=== PATIENT | male | born 1950 | race African-American/Black ===

== ENCOUNTER 2024-11-17 08:19 | Inpatient (IN) | payer MEDICARE, MEDICAID ==
[~2024-11-17] VITALS: Ht 188 cm; Wt 109.1 kg
[2024-11-17 08:45] VITALS: PULSE 99; RESP 20; O2SAT 95
--- NOTE | 2024-11-17 09:30 | ED.PDOC ---
GI ASSESSMENT HPI Comments 74 y/o M, presents to the ED for CC of abdominal pain. Patient states, that he has been experiencing diffuse abdominal pain that radiates to his lower back since last night (11/16/24). Patient relays, on experiencing associated symptoms of of nausea, vomiting, and chills. Patient denies dysuria, hematuria, flank pain, penile discharge, or diarrhea. No other symptoms or modifying factors present at this time. Chief Complaint: Abdominal Pain Time Seen by MD: 09:00 Reviewed Notes: Nurses Notes, Medications, Allergies Allergies: Coded Allergies: Penicillins (Verified Allergy, Unknown, 11/17/24) Information Source: Patient Mode of Arrival: Ambulatory Timing: Days Duration: Since onset Prehospital treatment: None Quality: None Vomitus: Watery Stool: Normal Severity: Moderate Recent: None Recent Hx of: None Pain Location: Diffuse Modifying Factors: Nothing Associated sign and symptoms: Nausea, Vomiting Past Medical History PAST MEDICAL HISTORY: Denies Surgical History: Hernia Repair Family History Family History: Unknown Social History Smoker: Non-Smoker Alcohol: Denies ETOH Use Drugs: Denies Drug Use Lives In: Home Constitutional: reports: chills; denies: diaphoresis, fatigue, fever, malaise, sweats, weakness, others EENTM: denies: blurred vision, double vision, ear bleeding, ear discharge, ear drainage, ear pain, ear ringing, eye pain, eye redness, hearing loss, mouth pain, mouth swelling, nasal discharge, nose bleeding, nose congestion, nose pain, photophobia, tearing, throat pain, throat swelling, voice changes, others Respiratory: denies: cough, hemoptysis, orthopnea, SOB at rest, shortness of breath, SOB with excertion, stridor, wheezing, others Cardiovascular: denies: chest pain, dizzy spells, diaphoresis, Dyspnea on exertion, edema, irregular heart beat, left arm pain, lightheadedness, palpitations, PND, syncope, others Gastrointestinal: reports: abdominal pain; denies: abdomen distended, blood streaked bowels, constipated, diarrhea, dysphagia, difficulty swallowing, hematemesis, melena, nausea, poor appetite, poor fluid intake, rectal bleeding, rectal pain, vomiting, others Genitourinary: denies: burning, dysuria, flank pain, frequency, hematuria, incontinence, penile discharge, penile sore, pain, testicle pain, testicle swelling, urgency, others Neurological: denies: dizziness, fainting, headache, left sided numbness, left sided weakness, numbness, paresthesia, pre-existing deficit, right sided numbness, right sided weakness, seizure, speech problems, tingling, tremors, weakness, others Musculoskeletal: reports: back pain; denies: gout, joint pain, joint swelling, muscle pain, muscle stiffness, neck pain, others Integumetry: denies: bruises, change in color, change in hair/nails, dryness, laceration, lesions, lumps, rash, wounds, others Allergic/Immunocompromised: denies: Difficulty Healing, Frequent Infections, Hives, Itching, others Hematologic/Lymphatic: denies: anemia, blood clots, easy bleeding, easy bruising, swollen glands, others Endocrine: denies: excessive hunger, excessive sweating, excessive thirst, excessive urination, flushing, intolerance to cold, intolerance to heat, unexplained weight gain, unexplained weight loss, others Psychiatric: denies: anxiety, bipolar disorder, depression, hopeless, panic disorder, schizophrenia, sleepless, suicidal, others All Other Systems: Reviewed and Negative Physical Exam General Appearance: No Apparent Distress, Normal HEENT: Normal ENT Inspection, Pharynx Normal, TMs Normal Neck: Full Range of Motion, Non-Tender, Normal, Normal Inspection Respiratory: Chest Non-Tender, Lungs Clear, No Accessory Muscle Use, No R espiratory Distress, Normal Breath Sounds Cardiovascular: No Edema, No Murmur, No Gallop, Normal Peripheral Pulses, Regular Rate/Rhythm Breast Exam: Deferred Gastrointestinal: Abnormal Bowel Sounds, Distended, Epigastric, No Organomegaly, Soft, Other (hyperactive bowel sounds, epigastric ttp, no rebound/guarding) Genitalia: Deferred Pelvic: Deferred Rectal: Deferred Extremities: Normal inspection, Other (Ambulate without difficulty.) Musculoskeletal : Apperance: Normal Neurologic: No Motor Deficits, Normal Affect, Normal Mood Cerebellar Function: Normal Reflexes: NOT DONE Skin: Dry, Normal Color, Warm Lymphatic: No Adenopathy Was a procedure done? Was a procedure done?: No GI differential Dx Differential Diagnosis: Bowel Obstruction, Constipation, Diverticular disease, Gastritis/PUD, Gastroenteritis, Electrolyte Imbalance, Food Poisoning, Bacterial, Viral X-Ray, Labs, Meds, VS Vital Signs Date Time Temp Pulse Resp B/P (MAP) Pulse Ox O2 Delivery O2 Flow Rate FiO2 11/17/24 10:12 79 20 148/98 11/17/24 10:10 78 20 148/98 (115) 94 11/17/24 09:42 93 18 179/99 11/17/24 08:45 99 20 95 Room Air* 0 21 11/17/24 08:45 97.6 99 20 156/106 (123) 95 97.6 11/17/24 08:45 98.2 115 16 163/92 (115) 96 Lab Test 11/17/24 10:24 11/17/24 10:02 11/17/24 09:00 11/17/24 08:47 Range/Units Urine Color Light-yellow Yellow Urine Clarity Clear Clear Urine pH 6.5 5.0-9.0 Urine Specific [place] 1.020 1.001-1.035 Urine Protein Negative Negative Urine Ketones Negative Negative Urine Blood Negative Negative /uL Urine Nitrite Negative Negative Urine Bilirubin Negative Negative Urine Urobilinogen 2 H Negative mg/dL Urine Leukocyte Esterase Negative Negative /uL Urine RBC 11 0 - 3 /hpf Urine Microscopic WBC 3 0-3 /HPF Urine Squamous Epithelial Cells Few <5 /hpf Urine Bacteria None seen None Seen /hpf Urine Mucus Few None Seen Urine Glucose Normal Normal mg/dL Troponin I High Sensitivity Pending 23 </=54 ng/L White Blood Count 9.4 4.4-10.8 10^3/uL Red Blood Count 5.84 4.5-5.90 10^6/uL Hemoglobin 16.0 13.5-17.5 g/dL Hematocrit 48.4 41.0-53.0 % Mean Corpuscular Volume 82.8 80.0-100.0 fL Mean Corpuscular Hemoglobin 27.3 L 28.0-32.0 pg Mean Corpuscular Hemoglobin Concent 33.0 32.0-36.0 g/dL Red Cell Distribution Width 14.1 11.8-14.3 % Platelet Count 157 140-450 10^3/uL Mean Platelet Volume 9.5 6.9-10.8 fL Neutrophils (%) (Auto) 85.8 H 37.0-80.0 % Lymphocytes (%) (Auto) 9.9 L 10.0-50.0 % Monocytes (%) (Auto) 3.4 0.0-12.0 % Eosinophils (%) (Auto) 0.3 0.0-7.0 % Basophils (%) (Auto) 0.6 0.0-2.0 % Neutrophils # (Auto) 8.0 1.6-8.6 10 ^3/uL Lymphocytes # (Auto) 0.9 0.4-5.4 10 ^3/uL Monocytes # (Auto) 0.3 0-1.3 10 ^3/uL Eosinophils # (Auto) 0 0-0.8 10 ^3/uL Basophils # (Auto) 0.1 0-0.2 10 ^3/uL Nucleated Red Blood Cells 0.1 % Prothrombin Time 11.3 9.3-11.8 sec Prothrombin Time INR 1.07 0.9-1.15 Activated Partial Thromboplast Time 28.2 24.5-34.5 SEC Sodium Level 142 136-145 mmol/L Potassium Level 3.8 3.5-5.1 mmol/L Chloride Level 108 H 98-107 mmol/L Carbon Dioxide Level 26 20-31 mmol/L Anion Gap 8 5-15 Blood Urea Nitrogen 10 9-23 mg/dL Creatinine 0.96 0.700-1.30 mg/dL Glomerular Filtration Rate Calc 84 >90 mL/min BUN/Creatinine Ratio 10.4 10.0-20.0 Serum Glucose 163 H 74-106 mg/dL Lactic Acid Level 1.5 0.4-2.0 mmol/L Calcium Level 10.2 8.7-10.4 mg/dL Total Bilirubin 0.6 0.2-1.0 mg/dL Aspartate Amino Transferase (AST) 28 13-40 U/L Alanine Aminotransferase (ALT) 23 7-40 U/L Alkaline Phosphatase 62 46-116 U/L Total Protein 8.0 5.7-8.2 g/dL Albumin 5.0 H 3.2-4.8 g/dL Lipase Pending POC Glucose 171 H 70-106 mg/dl Current Medications Medications (Trade) Dose Ordered Sig/Nita Route Start Time Stop Time Status Last Admin Morphine Sulfate 4 mg ONCE ONCE IV 11/17/24 09:45 11/17/24 09:46 DC 11/17/24 09:42 Ondansetron HCl (Zofran) 4 mg ONCE ONCE IV 11/17/24 09:45 11/17/24 09:46 DC 11/17/24 09:[address] [address] Ph: [phone] DIAGNOSTIC IMAGING Diagnostic Imaging Report : [id number] Signed PATIENT: RAQUEL JAMES JRACCT: [id number] UNIT: [id number] : 1950 LOC: ER ROOM / BED: / AGE / SEX: 74 / M ADM STATUS: REG ER SERVICE [id number] ORDERING PHYSICIAN: CHERELLE JIMENEZ MD PROCEDURE(s): ABPL - CT AB PEL WO CON-NO ORAL OR IV REASON: abdomenal pain ORDER NUMBER(s): [id number], ACCESSION NUMBER(s): [id number] Procedure: CT CT AB PEL WO CON-NO ORAL OR IV 11/17/2024 08:58 AM Indication: abdomenal pain Comparison Study: None Technique: Axial images were obtained and reformatted in coronal and sagittal planes. All CT scans at this medical facility are performed using dose modulation techniques as appropriate to a performed exam including the following: Automated exposure control was utilized; adjustment of the MA and/or KV according to patient size; and use of iterative reconstruction technique. CT Dose: CTDI volume is 18.69 mGy. Dose-length product is 1030.2 mGy*cm FINDINGS: Lower Chest: The heart is normal in size. Coronary artery calcification noted. Hepatobiliary: Several hepatic cysts are seen measuring up to 2.2 cm in the right lobe. Few subcentimeter hypodense lesions are seen within the liver that are too small to characterize in this unenhanced study . Liver contour is slightly irregular. No intrahepatic or extrahepatic ductal dilatation. Cholelithiasis and mild gallbladder wall thickening that could be at least in part due to lack of distention. Mild pericholecystic fat stranding noted adjacent to the gallbladder fundus. Spleen: Unremarkable. Pancreas: A 3 cm multilocular cyst noted in the pancreatic body. A 1.3 x 0.6 cm cyst in the pancreatic tail versus focal pancreatic ductal dilatation. Adrenal Glands: Unremarkable. tract: The kidneys are normal in size bilaterally without hydronephrosis or nephrolithiasis. Several small bilateral renal cysts are seen. Mildly thickened and trabecular bladder wall. GI tract: The stomach is grossly normal in appearance. No evidence of small bowel obstruction. A myomatous this material noted in the lumen of small bowel in the lower abdomen likely ingested material. The large bowel is unremarkable. The appendix is normal. Lymphatics: No mesenteric, retroperitoneal or periportal lymphadenopathy. Vasculature: The abdominal aorta is normal in in caliber. Pelvic Organs: Prostate is moderately enlarged. Bones/soft tissues: Mild multilevel degenerative disc disease of the thoracolumbar spine. Mild degenerative grade 1 anterolisthesis of L4 on L5. Mild bilateral hip joint osteoarthritis. Other: None. IMPRESSION: 1. Cholelithiasis with mild gallbladder wall thickening pericholecystic fat stranding adjacent to the fundus may represent acute or chronic cholecystitis. Recommend clinical and biochemical correlation further evaluation by gallbladder ultrasound. 2. Slightly irregular liver contour may indicate cirrhosis. Several hepatic cysts are seen measuring up to 2.2 cm and there are several subcentimeter hypodense hepatic lesions that are incompletely evaluated in this exam. No e vidence of hepatic steatosis. 3. A 3 cm multilocular cyst noted in the pancreatic body. A 1.3 x 0.6 cm cyst in the pancreatic tail versus focal pancreatic ductal dilatation. This should be further evaluated by multiphasic abdominal MRI without and with IV contrast utilizing a dedicated pancreatic protocol on a nonemergent basis. 4. Bilateral renal cysts, incompletely evaluated on this unenhanced study. 5. Mildly thickened and trabecular bladder wall that may represent chronic outlet obstruction or cystitis. Correlate with urinalysis. Prostate is moderately enlarged. ATED BY: EWA ISLAS MD DICTATED DATE/TIME: 11/17/24 1008 SIGNED BY: EWA ISLAS MD SIGNED DATE/TIME: 11/17/24 1008 CC: Time of 1ST Reevaluation: 09:30 Reevaluation 1ST: Unchanged Patient Education/Counseling: Diagnosis, Treatment Family Education/Counseling: No Family Present Departure 1 Departure Time of Disposition: 10:50 Impression: Primary Impression: Cholecystitis Additional Impressions: Non-specific colitis Cystitis Pancreatic cyst Cirrhosis Ascites Abdominal pain Disposition: ADMITTED INPATIENT Admit to: [facility] Condition: Serious Discharged With: Self Critical Care Note Critical Care Time?: No Stability Stability form required: No Heart Score Heart Score: Heart Score Response (Comments) Value History N/A 0 EKG N/A 0 Age N/A 0 Risk Factors N/A 0 Troponin N/A 0 Total 0 I personally scribed for CHERELLE JIMENEZ MD ([email or web address]) on 11/17/24 at 09:30. Electronically submitted by Joan Gruber ([employer]). I personally scribed for CHERELLE JIMENEZ MD ([email or web address]) on 11/17/24 at 09:34. Electronically submitted by Joan Gruber ([email or web address]). I personally scribed for CHERELLE JIMENEZ MD ([email or web address]) on 11/17/24 at 10:27. Electronically submitted by Joan Gruber ([employer]). CHERELLE JIMENEZ MD Nov 17, 2024 09:30
[2024-11-17] MEDS: ONDANSETRON HCL 4 MG/2 ML VIAL IV ONE (09:41)
[2024-11-17 09:42] LABS: Basophils # (auto) 0.1 10 ^3/uL (0-0.2); Basophils % (auto) 0.6 % (0.0-2.0); Eosinophils # (auto) 0 10 ^3/uL (0-0.8); Eosinophils % (auto) 0.3 % (0.0-7.0); Hematocrit 48.4 % (41.0-53.0); Lymphocytes # (auto) 0.9 10 ^3/uL (0.4-5.4); Lymphocytes % (auto) 9.9 % (10.0-50.0); Mean Corpuscular Hemoglobin 27.3 pg (28.0-32.0); Mean Corpuscular Volume 82.8 fL (80.0-100.0); Monocytes # (auto) 0.3 10 ^3/uL (0-1.3); Monocytes % (auto) 3.4 % (0.0-12.0); Neutrophils % (auto) 85.8 % (37.0-80.0); Nucleated Red Blood Cells % 0.1 %; Platelet Count (auto) 157 10^3/uL (140-450); Red Blood Cells 5.84 10^6/uL (4.5-5.90); Red Cell Distribution Width 14.1 % (11.8-14.3); White Blood Cell 9.4 10^3/uL (4.4-10.8)
[2024-11-17] MEDS: MORPHINE SULFATE 4 MG/ML SYR/VIAL IV ONE (09:42)
[2024-11-17 10:07] LABS: INR 1.07 (0.9-1.15); Partial Thromboplastin Time 28.2 SEC (24.5-34.5); Prothrombin Time 11.3 sec (9.3-11.8)
--- NOTE | 2024-11-17 10:10 | DVH ---
Procedure: CT CT AB PEL WO CON-NO ORAL OR IV 11/17/2024 08:58 AM Indication: abdomenal pain Comparison Study: None Technique: Axial images were obtained and reformatted in coronal and sagittal planes. All CT scans at this medical facility are performed using dose modulation techniques as appropriate to a performed e xam including the following: Automated exposure control was utilized; adjustment of the MA and/or KV according to patient size; and use of iterative reconstruction technique. CT Dose: CTDI volume is 18. 69 mGy. Dose-length product is 1030.2 mGy*cm FINDINGS: Lower Chest: The heart is normal in size. Coronary artery calcification noted. Hepatobiliary: Several hepatic cysts are seen measuring up to 2.2 cm in the right lobe. Few subcenti meter hypodense lesions are seen within the liver that are too small to characterize in this unenhanc ed study . Liver contour is slightly irregular. No intrahepatic or extrahepatic ductal dilatation. Ch olelithiasis and mild gallbladder wall thickening that could be at least in part due to lack of diste ntion. Mild pericholecystic fat stranding noted adjacent to the gallbladder fundus. Spleen: Unremarkable. Pancreas: A 3 cm multilocular cyst noted in the pancreatic body. A 1.3 x 0.6 cm cyst in the pancreati c tail versus focal pancreatic ductal dilatation. Adrenal Glands: Unremarkable. tract: The kidneys are normal in size bilaterally without hydronephrosis or nephrolithiasis. Sever al small bilateral renal cysts are seen. Mildly thickened and trabecular bladder wall. GI tract: The stomach is grossly normal in appearance. No evidence of small bowel obstruction. A myom atous this material noted in the lumen of small bowel in the lower abdomen likely ingested material. The large bowel is unremarkable. The appendix is normal. Lymphatics: No mesenteric, retroperitoneal or periportal lymphadenopathy. Vasculature: The abdominal aorta is normal in in caliber. Pelvic Organs: Prostate is moderately enlarged. Bones/soft tissues: Mild multilevel degenerative disc disease of the thoracolumbar spine. Mild degene rative grade 1 anterolisthesis of L4 on L5. Mild bilateral hip joint osteoarthritis. Other: None. IMPRESSION: 1. Cholelithiasis with mild gallbladder wall thickening pericholecystic fat stranding adjacent to the fundus may represent acute or chronic cholecystitis. Recommend clinical and biochemical correlation further evaluation by gallbladder ultrasound. 2. Slightly irregular liver contour may indicate cirrhosis. Several hepatic cysts are seen measuring up to 2.2 cm and there are several subcentimeter hypodense hepatic lesions that are incompletely eval uated in this exam. No evidence of hepatic steatosis. 3. A 3 cm multilocular cyst noted in the pancreatic body. A 1.3 x 0.6 cm cyst in the pancreatic tail versus focal pancreatic ductal dilatation. This should be further evaluated by multiphasic abdominal MRI without and with IV contrast utilizing a dedicated pancreatic protocol on a nonemergent basis. 4. Bilateral renal cysts, incompletely evaluated on this unenhanced study. 5. Mildly thickened and trabecular bladder wall that may represent chronic outlet obstruction or cyst itis. Correlate with urinalysis. Prostate is moderately enlarged.
[2024-11-17 10:19] LABS: Alanine Aminotransferase 23 U/L (7-40); Alkaline Phosphatase 62 U/L (46-116); Anion Gap 8 (5-15); Aspartate Aminotransferase 28 U/L (13-40); BUN/Creatinine Ratio 10.4 (10.0-20.0); Bilirubin, Total 0.6 mg/dL (0.2-1.0); Blood Urea Nitrogen 10 mg/dL (9-23); Calcium 10.2 mg/dL (8.7-10.4); Carbon Dioxide 26 mmol/L (20-31); Potassium 3.8 mmol/L (3.5-5.1); Sodium 142 mmol/L (136-145)
[2024-11-17 10:25] LABS: Urine Bacteria None Seen /hpf (None Seen)
[2024-11-17 10:39] LABS: Urine Blood Negative /uL (Negative); Urine Clarity Clear (Clear); Urine Color Light-Yellow (Yellow); Urine Mucus FEW (None Seen); Urine Protein, UAD Negative (Negative); Urine Squamous Epithelial Cell FEW /hpf (<5); Urine Urobilinogen 2 mg/dL (Negative); Urine WBC 3 /HPF (0-3); Urine pH 6.5 (5.0-9.0)
[2024-11-17 10:41] LABS: Chloride 108 mmol/L (98-107); Glucose 163 mg/dL (74-106)
[2024-11-17 10:52] LABS: Lipase 42 U/L (12-53)
[2024-11-17] MEDS ORDERED: MORPHINE SULFATE INJ 2 MG/ml SYRG IV PRN ×2 (11:15→16:15)
[2024-11-17] MEDS ORDERED: HYDROcodone-ACET 5/325MG TAB PO PRN ×2 (11:15→16:15)
[2024-11-17] MEDS ORDERED: ACETAMINOPHEN 325 MG TAB PO PRN ×2 (11:15→16:15)
[2024-11-17] MEDS ORDERED: DEXTROSE (50%) 50ML SYRG IV PRN (11:30)
[2024-11-17] MEDS ORDERED: ASPI-325 PO (11:37)
[2024-11-17] MEDS ORDERED: ATOR40TA52 PO (11:37)
[2024-11-17] MEDS ORDERED: DORZ2SOL18 EACHEYE (11:37)
[2024-11-17] MEDS ORDERED: BRIM0.2S17 EACHEYE (11:37)
[2024-11-17] MEDS ORDERED: BIMA0.01 EACHEYE (11:37)
[2024-11-17] MEDS ORDERED: APIX5TAB PO (11:37)
[2024-11-17] MEDS ORDERED: DONE1TAB88 PO (11:37)
[2024-11-17] MEDS ORDERED: EMPA1TAB PO (11:37)
--- NOTE | 2024-11-17 12:00 | DVH ---
ULTRASOUND ABDOMEN COMPLETE INDICATION: r/o cholecystitis TECHNIQUE: Multiple real-time sonographic images of the abdomen were obtained. COMPARISON: CT abdomen 11/17/2024 FINDINGS: The visualized liver parenchyma appears fairly homogenous . The liver measures 17 cm. There is a 1 .7 cm right hepatic lobe cyst. There is no suspicious appearing hepatic lesion or intrahepatic bili sunshine ductal dilatation is identified. There are multiple gallstones seen within the gallbladder. There is no significant gallbladder wall t hickening or pericholecystic fluid. The buncher hand reports a negative Galicia's sign. Common duct me asures 8 mm. The right kidney measures 10.4 cm length. The left kidney measures 10.3 cm. No sonographic evide nce of nephrolithiasis or hydronephrosis. The spleen measures 11.4 cm and appears within normal limits. Pancreas is obscured by bowel gas. The visualized portions of the IVC and aorta are grossly unremarkable. IMPRESSION: 1. Cholelithiasis without sonographic features of acute cholecystitis. HS:Y
[2024-11-17] MEDS: ACCU-CHEK COMFORT CURVE STRIP VI SCH (12:08)
[2024-11-17] MEDS: InsuLIN REG 1unit/0.01ml Soln (100units/ml) SC SCH (12:11)
[2024-11-17] MEDS: GADOTERATE MEG 10 MMOL/20ml INJ (0.5MMOL/ml) IV ONE (13:09)
--- NOTE | 2024-11-17 14:56 | DVH ---
CLINICAL HISTORY: Abnormal findings on CT. Pancreatic masses. TECHNIQUE: Multi sequence multi planar MRI images of the abdomen were obtained prior to and after th e uneventful administration of 20 mL [place] scan contrast. COMPARISON: CT dated 11/17/2024 and ultrasound dated 11/17/2024 FINDINGS: Multiple gallstones visualized in the gallbladder distended appearing gallbladder. No bili sunshine ductal dilatation. Common bile duct measures up to 0.6 cm. Multiple cysts are seen in the liver, with the largest measuring up to 2 cm in the posterior right hepatic lobe. The spleen and adrenal gla nds are unremarkable. There is no hydronephrosis in either kidney. Cyst at the mid to inferior pole o f the left kidney measures up to 2.1 cm. Small subcentimeter T2 hyperintense lesion in the inferior p ole of the right kidney, likely a small cyst, but not well characterized due to its small size. Nonen hancing T2 hyperintense structure at the pancreatic body measures up to 3.2 cm in greatest dimension with thin septations. Nonenhancing 0.6 cm T2 hyperintense structure of the pancreatic tail, likely a cyst, although not correlating with the size of the structure seen on CT of the pancreatic tail. No o ther significant abnormality identified in the abdomen. IMPRESSION: 1. 3.2 cm cystic mass in the body of the pancreas and 0.6 cm cystic mass in the tail of the pancreas. Based on size morphology (no mural nodule, wall thickening, normal caliber main pancreatic duct, and no peripheral calcification), imaging surveillance with MRI every 6 months x4 recommended. If stable in size and morphology over the initial 2 years, reimage annually x2 then every other year X3, for a total of 10 years surveillance. If there is interval growth during surveillance EUS/ FNA +surgical c onsultation recommended ACR white paper on incidentally detected pancreatic cysts. 2. Multiple hepatic cysts. 3. Cholelithiasis with distended gallbladder. No biliary ductal dilatation. 4. Additional findings as detailed above.
[2024-11-17] MEDS ORDERED: SODIUM CHLORIDE 0.9% 1,000 ML IV SCH (16:15)
[2024-11-17] MEDS ORDERED: ONDANSETRON HCL 4 MG/2 ML VIAL IV PRN (16:15)
--- NOTE | 2024-11-17 16:17 | DVHHP2 ---
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 Patient states the pain is 10/10 throbbing tight and constant in nature. Patient denies any chest pain, shortness of breath, fever, chills, lightheadedness, weakness, dizziness, recent trauma or injury, recent illnesses, or recent ingestion of spoiled food Cardiovascular: CHF, HTN Endocrine: Diabetes Past Medical History Partial blindness in both eyes Past Surgical History: Hernia Repair, Other (Bilateral eye surgery) Family History: Other (Mom with heart disease) Smoke: <1 pack per day ALCOHOL: none Drugs: None Lives: with Family Domestic Violence: Neg Review of Systems Gastrointestinal: Nausea, Vomiting, Abdominal Pain Musculoskeletal: back pain Allergies: Coded Allergies: Penicillins (Verified Allergy, Unknown, 11/17/24) Medications Current Medications Medications Dose Ordered Sig/Nita Route Start Time Stop Time Status Last Admin Dose Admin Acetaminophen/ Hydrocodone Bitart 1 tab Q4HPRN PRN PO 11/17/24 11:15 Acetaminophen 650 mg Q4HP PRN PO 11/17/24 11:15 Morphine Sulfate 2 mg Q4HPRN PRN IV 11/17/24 11:15 Diagnostic Test (Pha) 1 strip Q6HR 11/17/24 12:00 11/17/24 12:08 1 STRIP Insulin Human Regular Q6HR SC 11/17/24 12:00 11/17/24 12:11 3 UNITS Dextrose 50 ml UD PRN IV 11/17/24 11:30 Exam Vital Signs Vital Signs Date Time Temp Pulse Resp B/P (MAP) Pulse Ox O2 Delivery O2 Flow Rate FiO2 11/17/24 12:14 98.0 85 17 155/88 (110) 92 98.0 11/17/24 08:45 Room Air* 0 21 General Appearance: Alert, Oriented X3, Cooperative, No acute distress HEENT: Atraumatic, PERRLA, EOMI, Mucous membr. moist/pink Respiratory: Clear to auscultation, Normal air movement Cardiovascular: Regular rate, Normal S1, Normal S2, No murmurs Abdominal: Soft Extremities: No cyanosis, Normal pulses Skin: No significant lesion Neuro: Normal gait, Normal speech, Strength at 5/5 X4 ext, Normal tone, Sensation intact Psych/Mental Status: Mental status NL, Mood NL Labs/Xrays Labs Test 11/17/24 12:06 11/17/24 11:43 11/17/24 10:24 11/17/24 09:18 Range/Units POC Glucose 165 H 70-106 mg/dl Troponin I High Sensitivity 21 </=54 ng/L Urine Color Light-yellow Yellow Urine Clarity Clear Clear Urine pH 6.5 5.0-9.0 Urine Specific [place] 1.020 1.001-1.035 Urine Protein Negative Negative Urine Ketones Negative Negative Urine Blood Negative Negative /uL Urine Nitrite Negative Negative Urine Bilirubin Negative Negative Urine Urobilinogen 2 H Negative mg/dL Urine Leukocyte Esterase Negative Negative /uL Urine RBC 11 0 - 3 /hpf Urine Microscopic WBC 3 0-3 /HPF Urine Squamous Epithelial Cells Few <5 /hpf Urine Bacteria None seen None Seen /hpf Urine Mucus Few None Seen Urine Glucose Normal Normal mg/dL Test 11/17/24 09:00 Range/Units White Blood Count 9.4 4.4-10.8 10^3/uL Red Blood Count 5.84 4.5-5.90 10^6/uL Hemoglobin 16.0 13.5-17.5 g/dL Hematocrit 48.4 41.0-53.0 % Mean Corpuscular Volume 82.8 80.0-100.0 fL Mean Corpuscular Hemoglobin 27.3 L 28.0-32.0 pg Mean Corpuscular Hemoglobin Concent 33.0 32.0-36.0 g/dL Red Cell Distribution Width 14.1 11.8-14.3 % Platelet Count 157 140-450 10^3/uL Mean Platelet Volume 9.5 6.9-10.8 fL Neutrophils (%) (Auto) 85.8 H 37.0-80.0 % Lymphocytes (%) (Auto) 9.9 L 10.0-50.0 % Monocytes (%) (Auto) 3.4 0.0-12.0 % Eosinophils (%) (Auto) 0.3 0.0-7.0 % Basophils (%) (Auto) 0.6 0.0-2.0 % Neutrophils # (Auto) 8.0 1.6-8.6 10 ^3/uL Lymphocytes # (Auto) 0.9 0.4-5.4 10 ^3/uL Monocytes # (Auto) 0.3 0-1.3 10 ^3/uL Eosinophils # (Auto) 0 0-0.8 10 ^3/uL Basophils # (Auto) 0.1 0-0.2 10 ^3/uL Nucleated Red Blood Cells 0.1 % Prothrombin Time 11.3 9.3-11.8 sec Prothrombin Time INR 1.07 0.9-1.15 Activated Partial Thromboplast Time 28.2 24.5-34.5 SEC Sodium Level 142 136-145 mmol/L Potassium Level 3.8 3.5-5.1 mmol/L Chloride Level 108 H 98-107 mmol/L Carbon Dioxide Level 26 20-31 mmol/L Anion Gap 8 5-15 Blood Urea Nitrogen 10 9-23 mg/dL Creatinine 0.96 0.700-1.30 mg/dL Glomerular Filtration Rate Calc 84 >90 mL/min BUN/Creatinine Ratio 10.4 10.0-20.0 Serum Glucose 163 H 74-106 mg/dL Hemoglobin A1c 5.7 <5.7 % A1C Lactic Acid Level 1.5 0.4-2.0 mmol/L Calcium Level 10.2 8.7-10.4 mg/dL Total Bilirubin 0.6 0.2-1.0 mg/dL Aspartate Amino Transferase (AST) 28 13-40 U/L Alanine Aminotransferase (ALT) 23 7-40 U/L Alkaline Phosphatase 62 46-116 U/L Total Protein 8.0 5.7-8.2 g/dL Albumin 5.0 H 3.2-4.8 g/dL Lipase 42 12-53 U/L CLINICAL HISTORY: Abnormal findings on CT. Pancreatic masses. TECHNIQUE: Multi sequence multi planar MRI images of the abdomen were obtained prior to and after the uneventful administration of 20 mL [place] scan contrast. COMPARISON: CT dated 11/17/2024 and ultrasound dated 11/17/2024 FINDINGS: Multiple gallstones visualized in the gallbladder distended appearing gallbladder. No biliary ductal dilatation. Common bile duct measures up to 0.6 cm. Multiple cysts are seen in the liver, with the largest measuring up to 2 cm in the posterior right hepatic lobe. The spleen and adrenal glands are unremarkable. There is no hydronephrosis in either kidney. Cyst at the mid to inferior pole of the left kidney measures up to 2.1 cm. Small subcentimeter T2 hyperintense lesion in the inferior pole of the right kidney, likely a small cyst, but not well characterized due to its small size. Nonenhancing T2 hyperintense structure at the pancreatic body measures up to 3.2 cm in greatest dimension with thin septations. Nonenhancing 0.6 cm T2 hyperintense structure of the pancreatic tail, likely a cyst, although not correlating with the size of the structure seen on CT of the pancreatic tail. No other significant abnormality identified in the abdomen. IMPRESSION: 1. 3.2 cm cystic mass in the body of the pancreas and 0.6 cm cystic mass in the tail of the pancreas. Based on size morphology (no mural nodule, wall thickening, normal caliber main pancreatic duct, and no peripheral calcification), imaging surveillance with MRI every 6 months x4 recommended. If stable in size and morphology over the initial 2 years, reimage annually x2 then every other year X3, for a total of 10 years surveillance. If there is interval growth during surveillance EUS/ FNA +surgical consultation recommended ACR white paper on incidentally detected pancreatic cysts. 2. Multiple hepatic cysts. 3. Cholelithiasis with distended gallbladder. No biliary ductal dilatation. 4. Additional findings as detailed above. ULTRASOUND ABDOMEN COMPLETE INDICATION: r/o cholecystitis TECHNIQUE: Multiple real-time sonographic images of the abdomen were obtained. COMPARISON: CT abdomen 11/17/2024 FINDINGS: The visualized liver parenchyma appears fairly homogenous . The liver measures 17 cm. There is a 1.7 cm right hepatic lobe cyst. There is no suspicious appearing hepatic lesion or intrahepatic biliary ductal dilatation is identified. There are multiple gallstones seen within the gallbladder. There is no significant gallbladder wall thickening or pericholecystic fluid. The precast concrete products installer reports a negative Galicia's sign. Common duct measures 8 mm. The right kidney measures 10.4 cm length. The left kidney measures 10.3 cm. No sonographic evidence of nephrolithiasis or hydronephrosis. The spleen measures 11.4 cm and appears within normal limits. Pancreas is obscured by bowel gas. The visualized portions of the IVC and aorta are grossly unremarkable. IMPRESSION: 1. Cholelithiasis without sonographic features of acute cholecystitis. Indication: abdomenal pain Comparison Study: None Technique: Axial images were obtained and reformatted in coronal and sagittal planes. All CT scans at this medical facility are performed using dose modulation techniques as appropriate to a performed exam including the following: Automated exposure control was utilized; adjustment of the MA and/or KV according to patient size; and use of iterative reconstruction technique. CT Dose: CTDI volume is 18.69 mGy. Dose-length product is 1030.2 mGy*cm FINDINGS: Lower Chest: The heart is normal in size. Coronary artery calcification noted. Hepatobiliary: Several hepatic cysts are seen measuring up to 2.2 cm in the right lobe. Few subcentimeter hypodense lesions are seen within the liver that are too small to characterize in this unenhanced study . Liver contour is slightly irregular. No intrahepatic or extrahepatic ductal dilatation. Cholelithiasis and mild gallbladder wall thickening that could be at least in part due to lack of distention. Mild pericholecystic fat stranding noted adjacent to the gallbladder fundus. Spleen: Unremarkable. Pancreas: A 3 cm multilocular cyst noted in the pancreatic body. A 1.3 x 0.6 cm cyst in the pancreatic tail versus focal pancreatic ductal dilatation. Adrenal Glands: Unremarkable. tract: The kidneys are normal in size bilaterally without hydronephrosis or nephrolithiasis. Several small bilateral renal cysts are seen. Mildly thickened and trabecular bladder wall. GI tract: The stomach is grossly normal in appearance. No evidence of small bowel obstruction. A myomatous this material noted in the lumen of small bowel in the lower abdomen likely ingested material. The large bowel is unremarkable. The appendix is normal. Lymphatics: No mesenteric, retroperitoneal or periportal lymphadenopathy. Vasculature: The abdominal aorta is normal in in caliber. Pelvic Organs: Prostate is moderately enlarged. Bones/soft tissues: Mild multilevel degenerative disc disease of the thoracolumbar spine. Mild degenerative grade 1 anterolisthesis of L4 on L5. Mild bilateral hip joint osteoarthritis. Other: None. IMPRESSION: 1. Cholelithiasis with mild gallbladder wall thickening pericholecystic fat stranding adjacent to the fundus may represent acute or chronic cholecystitis. Recommend clinical and biochemical correlation further evaluation by gallbladder ultrasound. 2. Slightly irregular liver contour may indicate cirrhosis. Several hepatic cysts are seen measuring up to 2.2 cm and there are several subcentimeter hypodense hepatic lesions that are incompletely evaluated in this exam. No evidence of hepatic steatosis. 3. A 3 cm multilocular cyst noted in the pancreatic body. A 1.3 x 0.6 cm cyst in the pancreatic tail versus focal pancreatic ductal dilatation. This should be further evaluated by multiphasic abdominal MRI without and with IV contrast utilizing a dedicated pancreatic protocol on a nonemergent basis. 4. Bilateral renal cysts, incompletely evaluated on this unenhanced study. 5. Mildly thickened and trabecular bladder wall that may represent chronic o utlet obstruction or cystitis. Correlate with urinalysis. Prostate is moderately enlarged. 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 Hemoglobin A1c ISS and Accu-Cheks UA Finasteride CT abdomen and pelvis noted Antiemetics Pain management Troponin Lactic Blood cultures PT/PTT Lipase Ultrasound abdomen MRI abdomen with and without contrast CA 19 PSA BNP Strict I&Os Daily weight Consistent carb diet DVT prophylaxis patient on Eliquis PUD prophylaxis-Protonix Discussed plan of care with patient and nurse Home medications reconciled Surgery consult Plan discussed with: Patient My Orders Orders - MICHAEL VALENTINO Procedure Category Date Status Time Mri Abdomen W And Wo MRI 11/17/24 Resulted 11:04 Carbohydrate Antigen LAB 11/17/24 In Process 19-9 Psa Total+% Free LAB 11/17/24 In Process 11:04 Abdomen Complete US 11/17/24 Resulted Sonogram 10:59 Hydrocodone-Acet PHA 11/17/24 In Process 5/325mg Tab ([place] 11:15 Acetaminophen Tablet PHA 11/17/24 In Process (Tylenol Tablet) 11:15 Morphine Sulfate PHA 11/17/24 In Process Injection 11:15 Glucose Blood PHA 11/17/24 In Process (Accu-Chek Comfort 12:00 Insulin R (Human) PHA 11/17/24 In Process (Insulin R) 12:00 Dextrose 50% Syringe PHA 11/17/24 In Process 11:30 * Surgical Consult CONS 11/17/24 Transmitted Date of Service: Nov 17, 2024 Billing Provider: MICHAEL VALENTINO Common Visit Codes: [id number] INP/OBS CARE (HIGH) MICHAEL VALENTINO Nov 17, 2024 16:17
[2024-11-17 17:24] VITALS: BP 131/80; PULSE 92; RESP 17; TEMP 98.3; O2SAT 94
[2024-11-17 17:47] VITALS: BP 131/80; PULSE 92; RESP 17; TEMP 98.3; O2SAT 94
[2024-11-17] MEDS: FINASTERIDE 5 MG TAB PO ONE (18:21)
[2024-11-17 20:00] VITALS: PULSE 80; RESP 18; O2SAT 95
[2024-11-17] MEDS: ATORVASTATIN 20 MG TAB PO SCH (21:44)
[2024-11-17] MEDS ORDERED: DONEPEZIL HYDROCHLORIDE 5 MG TAB PO SCH (22:00)
[2024-11-18] VITALS (7 sets, daily range): BP systolic 127–157; BP diastolic 70–89; PULSE 50–93; RESP 16–20; TEMP 98.2–98.8; O2SAT 94–100
[2024-11-18] MEDS: EMPAGLIFLOZIN 10 MG TAB PO SCH (06:38)
[2024-11-18 06:43] LABS: Basophils # (auto) 0 10 ^3/uL (0-0.2); Basophils % (auto) 0.5 % (0.0-2.0); Eosinophils # (auto) 0.1 10 ^3/uL (0-0.8); Eosinophils % (auto) 0.8 % (0.0-7.0); Hematocrit 41.8 % (41.0-53.0); Hemoglobin 14.3 g/dL (13.5-17.5); Lymphocytes # (auto) 1.8 10 ^3/uL (0.4-5.4); Mean Corpuscular Hemoglobin 28.4 pg (28.0-32.0); Mean Corpuscular Hgb Conc. 34.2 g/dL (32.0-36.0); Mean Corpuscular Volume 83.2 fL (80.0-100.0); Monocytes % (auto) 11.8 % (0.0-12.0); Neutrophils # (auto) 5.9 10 ^3/uL (1.6-8.6); Neutrophils % (auto) 66.9 % (37.0-80.0); Nucleated Red Blood Cells % 0.1 %; Platelet Count (auto) 137 10^3/uL (140-450); Red Blood Cells 5.02 10^6/uL (4.5-5.90); Red Cell Distribution Width 13.9 % (11.8-14.3); White Blood Cell 8.8 10^3/uL (4.4-10.8)
[2024-11-18 06:51] LABS: Alanine Aminotransferase 18 U/L (7-40); Alkaline Phosphatase 54 U/L (46-116); Anion Gap 8 (5-15); Aspartate Aminotransferase 29 U/L (13-40); BUN/Creatinine Ratio 9.4 (10.0-20.0); Blood Urea Nitrogen 9 mg/dL (9-23); Calcium 9.4 mg/dL (8.7-10.4); Carbon Dioxide 26 mmol/L (20-31); Chloride 107 mmol/L (98-107); Glucose 111 mg/dL (74-106); Potassium 3.4 mmol/L (3.5-5.1); Sodium 141 mmol/L (136-145); Total Protein 6.6 g/dL (5.7-8.2)
[2024-11-18 08:38] LABS: Erythrocyte Sedimentation Rate 2 mm/hr (0-20)
[2024-11-18] MEDS: TIMOLOL OPTH EACHEYE SCH (10:00)
[2024-11-18] MEDS: APIXABAN 5 MG TAB PO SCH (10:00)
[2024-11-18] MEDS: DORZOLAMIDE HCL EACHEYE SCH (10:00)
[2024-11-18] MEDS: BIMATOPROST EACHEYE SCH (10:00)
[2024-11-18] MEDS: POTASSIUM CHL 20 Meq TABLET PO ONE (11:10)
[2024-11-18] MEDS: FINASTERIDE 5 MG TAB PO SCH (11:10)
[2024-11-18] MEDS: PANTOPRAZOLE 40 MG/10 ML VIAL INJ IV SCH (11:10)
[2024-11-18] MEDS: BRIMONIDINE 0.2% OPTH Soln 5ml EACHEYE SCH (11:11)
[2024-11-18 12:07] LABS: PSA Free 0.35 ng/mL; Prostate Specific Antigen 2.5 ng/mL (0.0-4.0)
--- NOTE | 2024-11-18 12:38 | DVHINCON2 ---
Date of service: Nov 18, 2024 History of Present Illness 74-year-old male with a history of CHF complaining of two day history of epigastric and right upper quadrant abdominal pain radiating into his back with nausea and vomiting. Past Medical History Hypertension. CHF. Past Surgical History Hernia repair Family History: FH: dementia MOTHER Hypertension MOTHER Family History Noncontributory Social History Reports tobacco. Occasional alcohol. Denies any IV drug use. Allergies: Coded Allergies: Penicillins (Verified Allergy, Unknown, 11/17/24) Home Meds Reported Medications Apixaban Base (ELIQUIS) 5 Mg Tab, 1 TAB PO DAILY 11/17/24 Dorzolamide-Timolol (Dorzolamide Hcl/Timolol M) 1 Ml Julia, 1 DROP EACHEYE DAILY 11/17/24 Bimatoprost (Lumigan) 0.01 % Julia, 1 DROP EACHEYE DAILY 11/17/24 Brimonidine Tartrate (Brimonidine Tartrate) 0.2 % Julia, 1 DROP EACHEYE DAILY 11/17/24 Atorvastatin Calcium (ATORVASTATIN CALCIUM) 40 Mg Tab, 1 TAB PO 11/17/24 Empagliflozin (Jardiance) 10 Mg Tab, 1 TAB PO QAM 11/17/24 Aspirin (Aspirin Low Dose) 81 Mg Tab, 1 TAB PO DAILY 11/17/24 Donepezil Hydrochloride (DONEPEZIL HCL) 10 Mg Tab, 1 TAB PO BID 11/17/24 Current Medications Current Medications Medications (Trade) Dose Ordered Sig/Nita Route PRN Reason Start Time Stop Time Status Last Admin Sodium Chloride 1,000 ml @ 100 mls/hr Q10H IV 11/17/24 16:15 11/17/24 16:49 DC Acetaminophen/ Hydrocodone Bitart (Ross 5/325MG Tab) 1 tab Q4HP PRN PO MODERATE PAIN (4-6 PAIN SCALE) 11/17/24 16:15 Ondansetron HCl (Zofran) 4 mg Q4HP PRN IV NAUSEA / VOMITING 11/17/24 16:15 Acetaminophen (Tylenol Tablet) 650 mg Q6HP PRN PO PAIN SCALE 1-3 OR TEMP>100.4 11/17/24 16:15 Morphine Sulfate 2 mg Q4HPRN PRN IV SEVERE PAIN (7-10 PAIN SCALE) 11/17/24 16:15 Apixaban (Eliquis) 5 mg DAILY PO 11/18/24 10:00 Brimonidine Tartrate (ALPHAGAN 0.2% OPTH Soln) 1 drop DAILY EACHEYE 11/18/24 10:00 11/18/24 11:11 Empaglifozin (Jardiance) 10 mg QAM PO 11/18/24 07:00 Patient Own Medication 1 drop DAILY EACHEYE 11/18/24 10:00 Patient Own Medication 1 tab BID PO 11/17/24 22:00 Cancel Patient Own Medication 1 drop DAILY EACHEYE 11/18/24 10:00 Atorvastatin Calcium (Lipitor) 40 mg HS PO 11/17/24 22:00 11/17/24 21:44 Donepezil HCl (Aricept Tablet) 10 mg BID PO 11/17/24 22:00 Hold Finasteride (Proscar Tablet) 5 mg DAILY PO 11/18/24 10:00 11/18/24 11:10 Pantoprazole Sodium (Protonix) 40 mg DAILY IV 11/18/24 10:00 11/18/24 11:10 Vital Signs Vital Signs Date Time Temp Pulse Resp B/P (MAP) Pulse Ox O2 Delivery O2 Flow Rate FiO2 11/18/24 08:35 98.5 88 18 144/85 (104) 94 98.5 11/18/24 08:00 Room Air* 0 21 Physical Exam GEN: Age-appropriate male in no acute distress. Alert. HEENT: Normocephalic atraumatic. Moist mucous membranes. Anicteric sclerae. CV: RRR Respiratory: Coarse breath sounds ABD: Minimal epigastric and right upper quadrant tenderness to palpation without guarding or rebound. Abdominal ultrasound: Multiple gallstones without gallbladder wall thickening or pericholecystic fluid. Common bile duct is 8 mm. Negative sonographic Galicia's sign. CT of the abdomen and pelvis: Slightly irregular liver contour may indicate cirrhosis. 3 cm multilocular cyst in the pancreatic body with a 1.3 x 0.6 cm cyst in the pancreatic tail. Cholelithiasis. Labs/Diagnostic Data Labs Test 11/18/24 12:12 11/18/24 06:05 11/17/24 11:43 11/17/24 10:24 Range/Units POC Glucose 126 H 70-106 mg/dl White Blood Count 8.8 4.4-10.8 10^3/uL Red Blood Count 5.02 4.5-5.90 10^6/uL Hemoglobin 14.3 13.5-17.5 g/dL Hematocrit 41.8 # 41.0-53.0 % Mean Corpuscular Volume 83.2 80.0-100.0 fL Mean Corpuscular Hemoglobin 28.4 28.0-32.0 pg Mean Corpuscular Hemoglobin Concent 34.2 32.0-36.0 g/dL Red Cell Distribution Width 13.9 11.8-14.3 % Platelet Count 137 L 140-450 10^3/uL Mean Platelet Volume 9.6 6.9-10.8 fL Neutrophils (%) (Auto) 66.9 37.0-80.0 % Lymphocytes (%) (Auto) 20.0 10.0-50.0 % Monocytes (%) (Auto) 11.8 0.0-12.0 % Eosinophils (%) (Auto) 0.8 0.0-7.0 % Basophils (%) (Auto) 0.5 0.0-2.0 % Neutrophils # (Auto) 5.9 1.6-8.6 10 ^3/uL Lymphocytes # (Auto) 1.8 0.4-5.4 10 ^3/uL Monocytes # (Auto) 1.0 0-1.3 10 ^3/uL Eosinophils # (Auto) 0.1 0-0.8 10 ^3/uL Basophils # (Auto) 0 0-0.2 10 ^3/uL Nucleated Red Blood Cells 0.1 % Erythrocyte Sedimentation Rate 2 0-20 mm/hr Sodium Level 141 136-145 mmol/L Potassium Level 3.4 L 3.5-5.1 mmol/L Chloride Level 107 98-107 mmol/L Carbon Dioxide Level 26 20-31 mmol/L Anion Gap 8 5-15 Blood Urea Nitrogen 9 9-23 mg/dL Creatinine 0.96 0.700-1.30 mg/dL Glomerular Filtration Rate Calc 84 >90 mL/min BUN/Creatinine Ratio 9.4 L 10.0-20.0 Serum Glucose 111 H 74-106 mg/dL Calcium Level 9.4 8.7-10.4 mg/dL Total Bilirubin 1.0 0.2-1.0 mg/dL Aspartate Amino Transferase (AST) 29 13-40 U/L Alanine Aminotransferase (ALT) 18 7-40 U/L Alkaline Phosphatase 54 46-116 U/L C-Reactive Protein High Sensitivity 0.80 <1.0 mg/dL Total Protein 6.6 5.7-8.2 g/dL Albumin 4.0 3.2-4.8 g/dL Troponin I High Sensitivity 21 </=54 ng/L Free Prostate Specific Antigen 0.35 N/A ng/mL Percent Free Prostate Specific Ag 14.0 . % Prostate Specific Antigen Total 2.5 0.0-4.0 ng/mL Urine Color Light-yellow Yellow Urine Clarity Clear Clear Urine pH 6.5 5.0-9.0 Urine Specific [place] 1.020 1.001-1.035 Urine Protein Negative Negative Urine Ketones Negative Negative Urine Blood Negative Negative /uL Urine Nitrite Negative Negative Urine Bilirubin Negative Negative Urine Urobilinogen 2 H Negative mg/dL Urine Leukocyte Esterase Negative Negative /uL Urine RBC 11 0 - 3 /hpf Urine Microscopic WBC 3 0-3 /HPF Urine Squamous Epithelial Cells Few <5 /hpf Urine Bacteria None seen None Seen /hpf Urine Mucus Few None Seen Urine Glucose Normal Normal mg/dL Test 11/17/24 09:18 11/17/24 09:00 Range/Units CA 19-9 Antigen 36 H 0-35 U/mL Prothrombin Time 11.3 9.3-11.8 sec Prothrombin Time INR 1.07 0.9-1.15 Activated Partial Thromboplast Time 28.2 24.5-34.5 SEC Hemoglobin A1c 5.7 <5.7 % A1C Lactic Acid Level 1.5 0.4-2.0 mmol/L B-Type Natriuretic Peptide 27.12 0-100 pg/mL Lipase 42 12-53 U/L Microbiology Date/Time Source Procedure Growth Status 11/17/24 09:18 Blood Blood Culture - Preliminary NO GROWTH AFTER 24 HOURS OF INCUBATION. Resulted Assessment 1. Multilocular pancreatic cysts in the body and small amount in the tail suspicious were cystic neoplasm 2. Cholelithiasis without acute cholecystitis Plan/Recommendation 1. Recommend endoscopic ultrasound with possible biopsy. Plan discussed with: Patient SHAWN STEWART MD Nov 18, 2024 12:38
--- NOTE | 2024-11-18 13:10 | DVHPNRES ---
Progress Note Date Seen: Nov 18, 2024 Resident Creating Document: MITALI GENTILE RESIDENT Has the PT tested + for MRSA If YES, has PT been informed?: No Medical Necessity Reason Pt with a Central, PICC or Fol: No Subjective Review of Systems Juancarlos Persaud Jr. 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 He presents to the emergency department with abdominal pain radiating to the back, associated with nausea and vomiting. He describes the pain as 10/10 in intensity, constant in nature. He denies chest pain, shortness of breath, fever, chills, lightheadedness, weakness, dizziness, recent trauma, recent illnesses, or ingestion of spoiled food. Past Medical History: Hypertension Type 2 Diabetes Mellitus Congestive Heart Failure Partial blindness Hernia repair Bilateral eye surgery Social History: Smoker: +1 pack per day Alcohol: Denies Drugs: Denies Lives with family No history of domestic violence Objective vital signs Vital Sign Date Time Temp Pulse Resp B/P (MAP) Pulse Ox O2 Delivery O2 Flow Rate FiO2 11/18/24 08:35 98.5 88 18 144/85 (104) 94 98.5 11/18/24 08:00 Room Air* 0 21 Total Intake and Output 11/17/24 11/17/24 11/18/24 15:00 23:00 07:00 Intake Total 400 ml Output Total 100 ml 300 ml Balance -100 ml 100 ml medications Current Medications Medications Dose Ordered Sig/Nita Route Start Time Stop Time Status Last Admin Dose Admin Diagnostic Test (Pha) 1 strip Q6HR 11/17/24 12:00 11/18/24 12:13 1 STRIP Insulin Human Regular Q6HR SC 11/17/24 12:00 11/17/24 12:11 3 UNITS Dextrose 50 ml UD PRN IV 11/17/24 11:30 Acetaminophen/ Hydrocodone Bitart 1 tab Q4HP PRN PO 11/17/24 16:15 Ondansetron HCl 4 mg Q4HP PRN IV 11/17/24 16:15 Acetaminophen 650 mg Q6HP PRN PO 11/17/24 16:15 Morphine Sulfate 2 mg Q4HPRN PRN IV 11/17/24 16:15 Apixaban 5 mg DAILY PO 11/18/24 10:00 Brimonidine Tartrate 1 drop DAILY EACHEYE 11/18/24 10:00 11/18/24 11:11 1 DROP Empaglifozin 10 mg QAM PO 11/18/24 07:00 Patient Own Medication 1 drop DAILY EACHEYE 11/18/24 10:00 Patient Own Medication 1 tab BID PO 11/17/24 22:00 Cancel Patient Own Medication 1 drop DAILY EACHEYE 11/18/24 10:00 Atorvastatin Calcium 40 mg HS PO 11/17/24 22:00 11/17/24 21:44 40 MG Donepezil HCl 10 mg BID PO 11/17/24 22:00 Hold Finasteride 5 mg DAILY PO 11/18/24 10:00 11/18/24 11:10 5 MG Pantoprazole Sodium 40 mg DAILY IV 11/18/24 10:00 11/18/24 11:10 40 MG Examination General: Alert, oriented x3, cooperative, no acute distress Cardiovascular: Irregular rhythm with multiple PACs noted on ECG Respiratory: No distress, clear to auscultation bilaterally Gastrointestinal: Abdominal tenderness noted Neurologic: No focal deficits laboratory and microbiology Laboratory Tests 11/18/24 06:05 Test 11/18/24 06:05 Range/Units Serum Glucose 111 H 74-106 mg/dL Microbiology Date/Time Source Procedure Growth Status 11/17/24 09:18 Blood Blood Culture - Preliminary NO GROWTH AFTER 24 HOURS OF INCUBATION. Resulted Problem List/Assessment/Plan Problem List/Assessment/Plan Imaging and Diagnostic Studies: MRI Abdomen (11/17/24): Multiple hepatic cysts Cholelithiasis with gallbladder distension but no biliary ductal dilation 1.3 cm cystic mass in the body of the pancreas and 0.6 cm cystic mass in the tail of the pancreas, possibly neoplastic Assessment & Plan: #Pancreatic cysts, suspicious for cystic neoplasm #Cholelithiasis without acute cholecystitis Recommend endoscopic ultrasound with possible biopsy: transfer to high level of care Ca 19-9 #Irregular rhythm with PACs #afib? Cardiology consult Enoxaparin BID #HTN #CHF stable Continue jardiance ECHO ordered #BPH Continue finasteride Case discussed with Dr King Plan discussed with: Patient, Other (rn) My Orders My Orders Orders - MITALI GENTILE Procedure Category Date Status Time Electrocardigram EKG 11/18/24 Logged 09:34 Admit ADMIT 3/14/25 Transmitted 10:57 Hooking Machine Operator ORDERS 11/18/24 Transmitted 10:57 * Environmental Conflict Manager CONS 11/18/24 Transmitted Consult Date of Service: Nov 18, 2024 Billing Provider: JOVANNI KING MD Common Visit Codes: [id number] INP/OBS CARE(HIGH) MITALI GENTILE RESIDENT Nov 18, 2024 13:10 JOVANNI KING MD Nov 19, 2024 15:21
--- NOTE | 2024-11-18 17:58 | DVHINCON2 ---
Date Seen: Nov 18, 2024 Referring Physician MD [place] resident Reason for Consultation Av block History of Present Illness This is a 74-year-old male patient who presents to the emergency room with chief complaint of abdominal pain, nausea, and vomiting. Patient was found to have pancreatic cyst suspicious for cystic neoplasm. The patient was placed on telemetry monitoring and was noted to have ectopy. A twelve lead electrocardiogram was done at that time and was able to capture sinus rhythm with Mobitz type 1 av block( EKG machine reads sinus or ectopic atrial rhythm). Cardiology has been consulted at this time for further evaluation. No other events of high-degree blocks were found on cardiac cath lab radiology technologist. The patient denies any cardiac symptoms. Troponin levels have been negative. Significant past medical history includes congestive heart failure, hypertension, type 2 diabetes mellitus, tobacco use and morbid obesity. The patient has been noted to be prescribed Eliquis. The patient denies any history of underlying cardiac arrhythmias or PE/DVTs. It was unclear as to why the patient is taking NOAC therapy. The patient also states that he does not see a electric detector operator in the outpatient setting. Past Medical History Past medical history reviewed. No other significant than mentioned above. Past Surgical History Hernia repair Bilateral cataract surgery Family History: FH: dementia MOTHER Hypertension MOTHER Family History Family history reviewed. Social History Patient has a 15 pack-year history smokes half a pack per day Patient admits to remote drug use, last time being approximately 12 years ago Denies any alcohol use Allergies: Coded Allergies: Penicillins (Verified Allergy, Unknown, 11/17/24) Home Meds Reported Medications Apixaban Base (ELIQUIS) 5 Mg Tab, 1 TAB PO DAILY 11/17/24 Dorzolamide-Timolol (Dorzolamide Hcl/Timolol M) 1 Ml Julia, 1 DROP EACHEYE DAILY 11/17/24 Bimatoprost (Lumigan) 0.01 % Julia, 1 DROP EACHEYE DAILY 11/17/24 Brimonidine Tartrate (Brimonidine Tartrate) 0.2 % Julia, 1 DROP EACHEYE DAILY 11/17/24 Atorvastatin Calcium (ATORVASTATIN CALCIUM) 40 Mg Tab, 1 TAB PO 11/17/24 Empagliflozin (Jardiance) 10 Mg Tab, 1 TAB PO QAM 11/17/24 Aspirin (Aspirin Low Dose) 81 Mg Tab, 1 TAB PO DAILY 11/17/24 Donepezil Hydrochloride (DONEPEZIL HCL) 10 Mg Tab, 1 TAB PO BID 11/17/24 Home Meds Home medications reviewed. Current Medications Current Medications Medications (Trade) Dose Ordered Sig/Nita Route PRN Reason Start Time Stop Time Status Last Admin Apixaban (Eliquis) 5 mg DAILY PO 11/18/24 10:00 11/18/24 16:00 DC Brimonidine Tartrate (ALPHAGAN 0.2% OPTH Soln) 1 drop DAILY EACHEYE 11/18/24 10:00 11/18/24 11:11 Empaglifozin (Jardiance) 10 mg QAM PO 11/18/24 07:00 Patient Own Medication 1 drop DAILY EACHEYE 11/18/24 10:00 Patient Own Medication 1 tab BID PO 11/17/24 22:00 Cancel Patient Own Medication 1 drop DAILY EACHEYE 11/18/24 10:00 Atorvastatin Calcium (Lipitor) 40 mg HS PO 11/17/24 22:00 11/17/24 21:44 Donepezil HCl (Aricept Tablet) 10 mg BID PO 11/17/24 22:00 Hold Finasteride (Proscar Tablet) 5 mg DAILY PO 11/18/24 10:00 11/18/24 11:10 Pantoprazole Sodium (Protonix) 40 mg DAILY IV 11/18/24 10:00 11/18/24 11:10 Enoxaparin Sodium (Lovenox) 80 mg Q12HR SC 11/18/24 22:00 UNV Enoxaparin Sodium (Lovenox) 100 mg Q12HR SC 11/18/24 22:00 Review of Systems Constitutional: No symptom reported Ears, Nose, & Throat: No symptom reported Eyes: No symptom reported Neurological: No symptoms reported Pulmonary/Respiratory: No symptoms reported Cardiovascular: No symptom reported Gastrointestinal: Abdominal pain, nausea and vomiting Genitourinary: No symptom reported Musculoskeletal: No symptom reported Skin: No symptom reported Psychiatric: No symptom reported Endocrine: No symptom reported Hematologic/Lymphatic: No symptom reported Vital Signs Vital Signs Date Time Temp Pulse Resp B/P (MAP) Pulse Ox O2 Delivery O2 Flow Rate FiO2 11/18/24 12:45 98.3 93 16 138/70 (92) 94 98.3 11/18/24 08:00 Room Air* 0 21 Physical Exam General Appearance: Cooperative. Obese Pulmonary/Respiratory: Clear, bilateral breaths sounds. Cardiovascular/Chest: Regular rate and rhythm. Peripheral Pulses: 2+ Radial (R). 2+ Radial (L). 2+ Pedal (R). 2+ Pedal (L) Abdominal Exam: Normal bowel sounds. Ankle Exam: Negative ankle edema Lower extremities: Negative lower extremity edema Neuro/Mental Status: A/OX4, coherent. Thoughts/Psych: Normal thought pattern. Appropriate mood and affect. Good judgment and insight. Appearance: No acute distress. Skin Exam: Normal inspection. Normal color. Warm and dry. Labs/Diagnostic Data Labs Test 11/18/24 17:06 11/18/24 06:05 11/17/24 11:43 11/17/24 10:24 Range/Units POC Glucose 123 H 70-106 mg/dl White Blood Count 8.8 4.4-10.8 10^3/uL Red Blood Count 5.02 4.5-5.90 10^6/uL Hemoglobin 14.3 13.5-17.5 g/dL Hematocrit 41.8 # 41.0-53.0 % Mean Corpuscular Volume 83.2 80.0-100.0 fL Mean Corpuscular Hemoglobin 28.4 28.0-32.0 pg Mean Corpuscular Hemoglobin Concent 34.2 32.0-36.0 g/dL Red Cell Distribution Width 13.9 11.8-14.3 % Platelet Count 137 L 140-450 10^3/uL Mean Platelet Volume 9.6 6.9-10.8 fL Neutrophils (%) (Auto) 66.9 37.0-80.0 % Lymphocytes (%) (Auto) 20.0 10.0-50.0 % Monocytes (%) (Auto) 11.8 0.0-12.0 % Eosinophils (%) (Auto) 0.8 0.0-7.0 % Basophils (%) (Auto) 0.5 0.0-2.0 % Neutrophils # (Auto) 5.9 1.6-8.6 10 ^3/uL Lymphocytes # (Auto) 1.8 0.4-5.4 10 ^3/uL Monocytes # (Auto) 1.0 0-1.3 10 ^3/uL Eosinophils # (Auto) 0.1 0-0.8 10 ^3/uL Basophils # (Auto) 0 0-0.2 10 ^3/uL Nucleated Red Blood Cells 0.1 % Erythrocyte Sedimentation Rate 2 0-20 mm/hr Sodium Level 141 136-145 mmol/L Potassium Level 3.4 L 3.5-5.1 mmol/L Chloride Level 107 98-107 mmol/L Carbon Dioxide Level 26 20-31 mmol/L Anion Gap 8 5-15 Blood Urea Nitrogen 9 9-23 mg/dL Creatinine 0.96 0.700-1.30 mg/dL Glomerular Filtration Rate Calc 84 >90 mL/min BUN/Creatinine Ratio 9.4 L 10.0-20.0 Serum Glucose 111 H 74-106 mg/dL Calcium Level 9.4 8.7-10.4 mg/dL Total Bilirubin 1.0 0.2-1.0 mg/dL Aspartate Amino Transferase (AST) 29 13-40 U/L Alanine Aminotransferase (ALT) 18 7-40 U/L Alkaline Phosphatase 54 46-116 U/L C-Reactive Protein High Sensitivity 0.80 <1.0 mg/dL Total Protein 6.6 5.7-8.2 g/dL Albumin 4.0 3.2-4.8 g/dL Troponin I High Sensitivity 21 </=54 ng/L Free Prostate Specific Antigen 0.35 N/A ng/mL Percent Free Prostate Specific Ag 14.0 . % Prostate Specific Antigen Total 2.5 0.0-4.0 ng/mL Urine Color Light-yellow Yellow Urine Clarity Clear Clear Urine pH 6.5 5.0-9.0 Urine Specific [place] 1.020 1.001-1.035 Urine Protein Negative Negative Urine Ketones Negative Negative Urine Blood Negative Negative /uL Urine Nitrite Negative Negative Urine Bilirubin Negative Negative Urine Urobilinogen 2 H Negative mg/dL Urine Leukocyte Esterase Negative Negative /uL Urine RBC 11 0 - 3 /hpf Urine Microscopic WBC 3 0-3 /HPF Urine Squamous Epithelial Cells Few <5 /hpf Urine Bacteria None seen None Seen /hpf Urine Mucus Few None Seen Urine Glucose Normal Normal mg/dL Test 11/17/24 09:18 11/17/24 09:00 Range/Units CA 19-9 Antigen 36 H 0-35 U/mL Prothrombin Time 11.3 9.3-11.8 sec Prothrombin Time INR 1.07 0.9-1.15 Activated Partial Thromboplast Time 28.2 24.5-34.5 SEC Hemoglobin A1c 5.7 <5.7 % A1C Lactic Acid Level 1.5 0.4-2.0 mmol/L B-Type Natriuretic Peptide 27.12 0-100 pg/mL Lipase 42 12-53 U/L Microbiology Date/Time Source Procedure Growth Status 11/17/24 09:18 Blood Blood Culture - Preliminary NO GROWTH AFTER 24 HOURS OF INCUBATION. Resulted Assessment Sinus rhythm with transient Mobitz type 1 Rule out structural heart disease ?History of cardiac arrhythmias (on Eliquis therapy) Hypertension Type 2 diabetes mellitus Tobacco use Morbid obesity Plan/Recommendation We will continue with the following plan/recommendations (Dr. Zamorano): Case discussed with . We will obtain a transthoracic echocardiogram to evaluate cardiac function. The patient was noted to go into sinus rhythm with Mobitz type 1 on twelve lead electrocardiogram. No events of pauses or higher degree atrioventricular blocks seen on cardiac cath lab radiology technologist. We will recommend to continue with close cardiac surveillance. The patient may need a permanent pacemaker if he begins to have symptomatic bradycardia, has pauses lasting longer than 3 seconds, or goes into a high-degree AV block. In the meantime, avoid all AV sonya blocking agents. Patient's home medications reviewed, patient takes timolol eye drops at home. This is an AV sonya blocking agent, recommend holding if feasible. Thank you for allowing us to care for this patient. Please call with any questions or concerns. Critical care time spent: 44 minutes This medical document was created using an electronic medical record system with voice recognition software and computerized dictation system. Although this document has been carefully reviewed, there might still be some phonetic and typographical errors. Occasional wrong-word or ``sound-alike substitutions may have occurred due to the inherent limitations of voice recognition software. These areas are purely typographical due to imperfections of the software programs and do not reflect any compromise in the patient's medical care. Please read the chart carefully and recognize, using context, where these subst itutions have occurred. Plan discussed with: Patient NYHA Physical activity limitations: NA Date of Service: Nov 18, 2024 Billing Provider: BAR GARZA Cardiology Common Codes: 56878-[id number] INP/OBS CARE (High) Cardiology Consultation Codes: [id number] CONSULT <45MIN BAR GARZA Nov 18, 2024 17:58
--- NOTE | 2024-11-18 21:57 | DVHINCON2 ---
Date Seen: Nov 18, 2024 Referring Physician MD [place] resident Reason for Consultation Av block History of Present Illness This is a 74-year-old male with a past medical history of congestive heart failure, hypertension, type 2 diabetes mellitus, tobacco use and morbid obesity who presented to the ED with complaints of abdominal pain, nausea, and vomiting. Patient was found to have pancreatic cyst suspicious for cystic neoplasm. Patient was placed on telemetry monitoring and was noted to have ectopy. A twelve lead electrocardiogram was done at that time and was able to capture sinus rhythm with Mobitz type 1 av block (EKG machine reads sinus or ectopic atrial rhythm). Cardiology has been consulted at this time for further evaluation. No other events of high-degree blocks were found on cardiac m onitor. The patient denies any cardiac symptoms. Troponin levels have been negative. The patient denies any history of underlying cardiac arrhythmias or PE/DVTs. It was unclear as to why the patient is taking NOAC therapy. 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 Past Medical History Past medical history reviewed. No other significant than mentioned above. Past Surgical History Hernia repair Bilateral cataract surgery Family History: FH: dementia MOTHER Hypertension MOTHER Allergies: Coded Allergies: Penicillins (Verified Allergy, Unknown, 11/17/24) Home Meds Reported Medications Apixaban Base (ELIQUIS) 5 Mg Tab, 1 TAB PO DAILY 11/17/24 Dorzolamide-Timolol (Dorzolamide Hcl/Timolol M) 1 Ml Julia, 1 DROP EACHEYE DAILY 11/17/24 Bimatoprost (Lumigan) 0.01 % Julia, 1 DROP EACHEYE DAILY 11/17/24 Brimonidine Tartrate (Brimonidine Tartrate) 0.2 % Julia, 1 DROP EACHEYE DAILY 11/17/24 Atorvastatin Calcium (ATORVASTATIN CALCIUM) 40 Mg Tab, 1 TAB PO 11/17/24 Empagliflozin (Jardiance) 10 Mg Tab, 1 TAB PO QAM 11/17/24 Aspirin (Aspirin Low Dose) 81 Mg Tab, 1 TAB PO DAILY 11/17/24 Donepezil Hydrochloride (DONEPEZIL HCL) 10 Mg Tab, 1 TAB PO BID 11/17/24 Current Medications Current Medications Medications (Trade) Dose Ordered Sig/Nita Route PRN Reason Start Time Stop Time Status Last Admin Apixaban (Eliquis) 5 mg DAILY PO 11/18/24 10:00 11/18/24 16:00 DC Brimonidine Tartrate (ALPHAGAN 0.2% OPTH Soln) 1 drop DAILY EACHEYE 11/18/24 10:00 11/18/24 11:11 Empaglifozin (Jardiance) 10 mg QAM PO 11/18/24 07:00 Patient Own Medication 1 drop DAILY EACHEYE 11/18/24 10:00 Patient Own Medication 1 tab BID PO 11/17/24 22:00 Cancel Patient Own Medication 1 drop DAILY EACHEYE 11/18/24 10:00 Atorvastatin Calcium (Lipitor) 40 mg HS PO 11/17/24 22:00 11/17/24 21:44 Donepezil HCl (Aricept Tablet) 10 mg BID PO 11/17/24 22:00 Hold Finasteride (Proscar Tablet) 5 mg DAILY PO 11/18/24 10:00 11/18/24 11:10 Pantoprazole Sodium (Protonix) 40 mg DAILY IV 11/18/24 10:00 11/18/24 11:10 Enoxaparin Sodium (Lovenox) 80 mg Q12HR SC 11/18/24 22:00 UNV Enoxaparin Sodium (Lovenox) 100 mg Q12HR SC 11/18/24 22:00 Review of Systems Constitutional: No symptom reported Ears, Nose, & Throat: No symptom reported Eyes: No symptom reported Neurological: No symptoms reported Pulmonary/Respiratory: No symptoms reported Cardiovascular: No symptom reported Gastrointestinal: Abdominal pain, nausea and vomiting Genitourinary: No symptom reported Musculoskeletal: No symptom reported Skin: No symptom reported Psychiatric: No symptom reported Endocrine: No symptom reported Hematologic/Lymphatic: No symptom reported Vital Signs Vital Signs Date Time Temp Pulse Resp B/P (MAP) Pulse Ox O2 Delivery O2 Flow Rate FiO2 11/18/24 16:40 98.3 73 18 131/76 (94) 94 98.3 11/18/24 08:00 Room Air* 0 21 Physical Exam GENERAL: Awake, alert, oriented. Obese. LUNGS: Clear. CARDIOVASCULAR: Heart sounds are good. ABDOMEN: Soft. Labs/Diagnostic Data Labs Test 11/18/24 17:06 11/18/24 06:05 11/17/24 11:43 11/17/24 10:24 Range/Units POC Glucose 123 H 70-106 mg/dl White Blood Count 8.8 4.4-10.8 10^3/uL Red Blood Count 5.02 4.5-5.90 10^6/uL Hemoglobin 14.3 13.5-17.5 g/dL Hematocrit 41.8 # 41.0-53.0 % Mean Corpuscular Volume 83.2 80.0-100.0 fL Mean Corpuscular Hemoglobin 28.4 28.0-32.0 pg Mean Corpuscular Hemoglobin Concent 34.2 32.0-36.0 g/dL Red Cell Distribution Width 13.9 11.8-14.3 % Platelet Count 137 L 140-450 10^3/uL Mean Platelet Volume 9.6 6.9-10.8 fL Neutrophils (%) (Auto) 66.9 37.0-80.0 % Lymphocytes (%) (Auto) 20.0 10.0-50.0 % Monocytes (%) (Auto) 11.8 0.0-12.0 % Eosinophils (%) (Auto) 0.8 0.0-7.0 % Basophils (%) (Auto) 0.5 0.0-2.0 % Neutrophils # (Auto) 5.9 1.6-8.6 10 ^3/uL Lymphocytes # (Auto) 1.8 0.4-5.4 10 ^3/uL Monocytes # (Auto) 1.0 0-1.3 10 ^3/uL Eosinophils # (Auto) 0.1 0-0.8 10 ^3/uL Basophils # (Auto) 0 0-0.2 10 ^3/uL Nucleated Red Blood Cells 0.1 % Erythrocyte Sedimentation Rate 2 0-20 mm/hr Sodium Level 141 136-145 mmol/L Potassium Level 3.4 L 3.5-5.1 mmol/L Chloride Level 107 98-107 mmol/L Carbon Dioxide Level 26 20-31 mmol/L Anion Gap 8 5-15 Blood Urea Nitrogen 9 9-23 mg/dL Creatinine 0.96 0.700-1.30 mg/dL Glomerular Filtration Rate Calc 84 >90 mL/min BUN/Creatinine Ratio 9.4 L 10.0-20.0 Serum Glucose 111 H 74-106 mg/dL Calcium Level 9.4 8.7-10.4 mg/dL Total Bilirubin 1.0 0.2-1.0 mg/dL Aspartate Amino Transferase (AST) 29 13-40 U/L Alanine Aminotransferase (ALT) 18 7-40 U/L Alkaline Phosphatase 54 46-116 U/L C-Reactive Protein High Sensitivity 0.80 <1.0 mg/dL Total Protein 6.6 5.7-8.2 g/dL Albumin 4.0 3.2-4.8 g/dL Troponin I High Sensitivity 21 </=54 ng/L Free Prostate Specific Antigen 0.35 N/A ng/mL Percent Free Prostate Specific Ag 14.0 . % Prostate Specific Antigen Total 2.5 0.0-4.0 ng/mL Urine Color Light-yellow Yellow Urine Clarity Clear Clear Urine pH 6.5 5.0-9.0 Urine Specific [place] 1.020 1.001-1.035 Urine Protein Negative Negative Urine Ketones Negative Negative Urine Blood Negative Negative /uL Urine Nitrite Negative Negative Urine Bilirubin Negative Negative Urine Urobilinogen 2 H Negative mg/dL Urine Leukocyte Esterase Negative Negative /uL Urine RBC 11 0 - 3 /hpf Urine Microscopic WBC 3 0-3 /HPF Urine Squamous Epithelial Cells Few <5 /hpf Urine Bacteria None seen None Seen /hpf Urine Mucus Few None Seen Urine Glucose Normal Normal mg/dL Test 11/17/24 09:18 11/17/24 09:00 Range/Units CA 19-9 Antigen 36 H 0-35 U/mL Prothrombin Time 11.3 9.3-11.8 sec Prothrombin Time INR 1.07 0.9-1.15 Activated Partial Thromboplast Time 28.2 24.5-34.5 SEC Hemoglobin A1c 5.7 <5.7 % A1C Lactic Acid Level 1.5 0.4-2.0 mmol/L B-Type Natriuretic Peptide 27.12 0-100 pg/mL Lipase 42 12-53 U/L Microbiology Date/Time Source Procedure Growth Status 11/17/24 09:18 Blood Blood Culture - Preliminary NO GROWTH AFTER 24 HOURS OF INCUBATION. Resulted Assessment Sinus rhythm with transient Mobitz type 1. Rule out structural heart disease. ?History of cardiac arrhythmias (on Eliquis therapy). Hypertension. Type 2 diabetes mellitus. Tobacco use. Morbid obesity. Plan/Recommendation I agree with your ongoing assessment and care of plan. Patient has been seen by Juany Hernandez NP on my behalf, her and I discussed the plan with the patient. Telemetry reviewed. We will obtain a transthoracic echocardiogram to evaluate cardiac function. The patient was noted to go into sinus rhythm with Mobitz type 1 on twelve lead electrocardiogram. No events of pauses or higher degree atrioventricular blocks seen on surveillance system monitor. We will recommend to continue with close cardiac surveillance. The patient may need a permanent pacemaker if he begins to have symptomatic bradycardia, has pauses lasting longer than 3 seconds, or goes into a high- degree AV block. In the meantime, avoid all AV sonya blocking agents. Patient's home medications reviewed, patient takes timolol eye drops at home. This is an AV sonya blocking agent, recommend holding if feasible. Additional plan as per the hospital course. Plan discussed with: Patient NYHA Physical activity limitations: NA Date of Service: Nov 18, 2024 Billing Provider: LACY CLAYTON MD Cardiology Common Codes: [id number] INP/OBS CARE (High) Cardiology Consultation Codes: [id number] CONSULT <45MIN LACY CLAYTON MD Nov 18, 2024 18:17
[2024-11-18] MEDS ORDERED: ENOXAPARIN SOD 80 MG/0.8ML SYRINGE SC SCH (22:00)
[2024-11-18] MEDS: ENOXAPARIN SOD 100 MG/1 ML SYRINGE SC SCH (22:00)
[2024-11-19] VITALS (8 sets, daily range): BP systolic 128–150; BP diastolic 83–100; PULSE 71–97; RESP 18; TEMP 97.8–98.9; O2SAT 93–96
[2024-11-19 06:54] LABS: Basophils # (auto) 0.1 10 ^3/uL (0-0.2); Basophils % (auto) 0.9 % (0.0-2.0); Eosinophils # (auto) 0.1 10 ^3/uL (0-0.8); Eosinophils % (auto) 1.5 % (0.0-7.0); Hematocrit 43.1 % (41.0-53.0); Hemoglobin 14.8 g/dL (13.5-17.5); Lymphocytes # (auto) 1.8 10 ^3/uL (0.4-5.4); Lymphocytes % (auto) 20.9 % (10.0-50.0); Mean Corpuscular Hgb Conc. 34.3 g/dL (32.0-36.0); Mean Corpuscular Volume 81.5 fL (80.0-100.0); Monocytes # (auto) 0.7 10 ^3/uL (0-1.3); Monocytes % (auto) 8.7 % (0.0-12.0); Neutrophils # (auto) 5.8 10 ^3/uL (1.6-8.6); Nucleated Red Blood Cells % 0.1 %; Platelet Count (auto) 140 10^3/uL (140-450); Red Blood Cells 5.29 10^6/uL (4.5-5.90); White Blood Cell 8.5 10^3/uL (4.4-10.8)
[2024-11-19 07:15] LABS: Alanine Aminotransferase 16 U/L (7-40); Alkaline Phosphatase 55 U/L (46-116); Anion Gap 8 (5-15); BUN/Creatinine Ratio 10.5 (10.0-20.0); Blood Urea Nitrogen 10 mg/dL (9-23); Calcium 9.3 mg/dL (8.7-10.4); Carbon Dioxide 25 mmol/L (20-31); Chloride 107 mmol/L (98-107); Glucose 83 mg/dL (74-106); Sodium 140 mmol/L (136-145); Total Protein 6.6 g/dL (5.7-8.2)
[2024-11-19 07:16] LABS: Aspartate Aminotransferase 22 U/L (13-40)
[2024-11-19 07:21] LABS: Potassium 3.5 mmol/L (3.5-5.1)
--- NOTE | 2024-11-19 09:50 | DVHPNRES ---
Progress Note Date Seen: Nov 19, 2024 Resident Creating Document: NAV PAR[facility] RESIDENT Has the PT tested + for MRSA If YES, has PT been informed?: No Medical Necessity Reason Pt with a Central, PICC or Fol: No Subjective Review of Systems Juancarlos Persaud Jr. 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 He presents to the emergency department with abdominal pain radiating to the back, associated with nausea and vomiting. He describes the pain as 10/10 in intensity, constant in nature. He denies chest pain, shortness of breath, fever, chills, lightheadedness, weakness, dizziness, recent trauma, recent illnesses, or ingestion of spoiled food. Past Medical History: Hypertension Type 2 Diabetes Mellitus Congestive Heart Failure Partial blindness Hernia repair Bilateral eye surgery Social History: Smoker: +1 pack per day Alcohol: Denies Drugs: Denies Lives with family No history of domestic violence 11/19-patient is hemodynamically stable, reports no active distress. Seen and examined at the bedside. Tolerating diet. No episodes of emesis within 24 hours. Pending Transfer. Abdomen is nontender. Objective vital signs Vital Sign Date Time Temp Pulse Resp B/P (MAP) Pulse Ox O2 Delivery O2 Flow Rate FiO2 11/19/24 09:00 98.3 97 18 150/100 (117) 96 98.3 11/19/24 08:00 Room Air* 0 21 Total Intake and Output 11/18/24 11/18/24 11/19/24 15:00 23:00 07:00 Intake Total 640 ml 400 ml Output Total 310 ml 1000 ml Balance 330 ml -600 ml medications Current Medications Medications Dose Ordered Sig/Nita Route Start Time Stop Time Status Last Admin Dose Admin Diagnostic Test (Pha) 1 strip Q6HR 11/17/24 12:00 11/19/24 05:22 1 STRIP Insulin Human Regular Q6HR SC 11/17/24 12:00 11/17/24 12:11 3 UNITS Dextrose 50 ml UD PRN IV 11/17/24 11:30 Acetaminophen/ Hydrocodone Bitart 1 tab Q4HP PRN PO 11/17/24 16:15 Ondansetron HCl 4 mg Q4HP PRN IV 11/17/24 16:15 Acetaminophen 650 mg Q6HP PRN PO 11/17/24 16:15 Morphine Sulfate 2 mg Q4HPRN PRN IV 11/17/24 16:15 Brimonidine Tartrate 1 drop DAILY EACHEYE 11/18/24 10:00 11/18/24 11:11 1 DROP Empaglifozin 10 mg QAM PO 11/18/24 07:00 11/19/24 06:11 10 MG Patient Own Medication 1 drop DAILY EACHEYE 11/18/24 10:00 Patient Own Medication 1 tab BID PO 11/17/24 22:00 Cancel Patient Own Medication 1 drop DAILY EACHEYE 11/18/24 10:00 Atorvastatin Calcium 40 mg HS PO 11/17/24 22:00 11/18/24 21:58 40 MG Donepezil HCl 10 mg BID PO 11/17/24 22:00 Hold Finasteride 5 mg DAILY PO 11/18/24 10:00 11/18/24 11:10 5 MG Pantoprazole Sodium 40 mg DAILY IV 11/18/24 10:00 11/18/24 11:10 40 MG Enoxaparin Sodium 80 mg Q12HR SC 11/18/24 22:00 UNV Enoxaparin Sodium 100 mg Q12HR SC 11/18/24 22:00 11/18/24 22:00 100 MG Examination Patient lying in bed, in no acute distress General: Well-built, afebrile, palor, mucosae are moist Cardiovascular: Regular S1 and S2. No murmurs, gallops or rubs. No JVD elevation. No pedal edema Respiratory: Normal B/L air entry on room air. Clear lung sounds on auscultation Abdomen: Soft, nontender, nondistended, normoactive bowel sounds, no rebound tenderness, no organomegaly, no masses Genitourinary: Deferred MSK/skin: Mobilizes 4 limbs. Skin is dry and warm Neurological: No motor, no sensitive deficits, normal speech. Pupils are isocoric and reactive. Psych/Mental Status: A/Ox3 laboratory and microbiology Laboratory Tests 11/19/24 05:04 Test 11/19/24 05:04 Range/Units Serum Glucose 83 74-106 mg/dL Microbiology Date/Time Source Procedure Growth Status 11/17/24 09:18 Blood Blood Culture - Preliminary NO GROWTH AFTER 48 HOURS OF INCUBATION. Resulted Labs and/or images reviewed: Labs reviewed by me, Image(s) reviewed by me Problem List/Assessment/Plan Problem List/Assessment/Plan 11/19-patient is hemodynamically stable, reports no active distress. Seen and examined at the bedside. Tolerating diet. No episodes of emesis within 24 hours. Pending Transfer. Imaging and Diagnostic Studies: MRI Abdomen (11/17/24): Multiple hepatic cysts Cholelithiasis with gallbladder distension but no biliary ductal dilation 1.3 cm cystic mass in the body of the pancreas and 0.6 cm cystic mass in the tail of the pancreas, possibly neoplastic Assessment & Plan: #Pancreatic cysts, suspicious for cystic neoplasm #Cholelithiasis without acute cholecystitis Recommend endoscopic ultrasound with possible biopsy: transfer to high level of care Ca 19-9 #Irregular rhythm with PACs #afib? Cardiology consult Enoxaparin BID #HTN #CHF stable Continue jardiance ECHO ordered #BPH Continue finasteride Case discussed with Dr Heredia Plan discussed with: Patient Date of Service: Nov 19, 2024 Billing Provider: JOVANNI HEREDIA MD Common Visit Codes: [id number] INP/OBS CARE(HIGH) NAV PARRA RESIDENT Nov 19, 2024 09:50 JOVANNI HEREDIA MD Nov 19, 2024 15:22
--- NOTE | 2024-11-19 22:34 | DVHPN2 ---
Progress Note - Dictate Date Seen: Nov 19, 2024 Has the PT tested + for MRSA If YES, has PT been informed?: No Medical Necessity Reason Pt with a Central, PICC or Fol: No Subjective Patient was seen and evaluated in follow up. Patient denies any pain or discomfort. CBC and chemistry panel are WNL. Patient is pending transfer to [facility]. Telemetry reviewed. vital signs Vital Sign Date Time Temp Pulse Resp B/P (MAP) Pulse Ox O2 Delivery O2 Flow Rate FiO2 11/19/24 17:00 97.8 91 18 128/83 (98) 95 97.8 11/19/24 08:00 Room Air* 0 21 Total Intake and Output 11/18/24 11/18/24 11/19/24 15:00 23:00 07:00 Intake Total 640 ml 400 ml Output Total 310 ml 1000 ml Balance 330 ml -600 ml medications Current Medications Medications Dose Ordered Sig/Nita Route Start Time Stop Time Status Last Admin Dose Admin Diagnostic Test (Pha) 1 strip Q6HR 11/17/24 12:00 11/19/24 18:22 1 STRIP Insulin Human Regular Q6HR SC 11/17/24 12:00 11/17/24 12:11 3 UNITS Dextrose 50 ml UD PRN IV 11/17/24 11:30 Acetaminophen/ Hydrocodone Bitart 1 tab Q4HP PRN PO 11/17/24 16:15 Ondansetron HCl 4 mg Q4HP PRN IV 11/17/24 16:15 Acetaminophen 650 mg Q6HP PRN PO 11/17/24 16:15 Morphine Sulfate 2 mg Q4HPRN PRN IV 11/17/24 16:15 Brimonidine Tartrate 1 drop DAILY EACHEYE 11/18/24 10:00 11/19/24 09:51 1 DROP Empaglifozin 10 mg QAM PO 11/18/24 07:00 11/19/24 06:11 10 MG Patient Own Medication 1 drop DAILY EACHEYE 11/18/24 10:00 Patient Own Medication 1 tab BID PO 11/17/24 22:00 Cancel Patient Own Medication 1 drop DAILY EACHEYE 11/18/24 10:00 Atorvastatin Calcium 40 mg HS PO 11/17/24 22:00 11/18/24 21:58 40 MG Donepezil HCl 10 mg BID PO 11/17/24 22:00 Hold Finasteride 5 mg DAILY PO 11/18/24 10:00 11/18/24 11:10 5 MG Pantoprazole Sodium 40 mg DAILY IV 11/18/24 10:00 11/19/24 09:50 40 MG Enoxaparin Sodium 80 mg Q12HR SC 11/18/24 22:00 UNV Enoxaparin Sodium 100 mg Q12HR SC 11/18/24 22:00 11/19/24 09:52 100 MG objective GENERAL: Awake, alert, oriented. Obese. LUNGS: Clear. CARDIOVASCULAR: Heart sounds are good. ABDOMEN: Soft. laboratory and microbiology Laboratory Tests 11/19/24 05:04 Test 11/19/24 05:04 Range/Units Serum Glucose 83 74-106 mg/dL Problem List Sinus rhythm with transient Mobitz type 1. Rule out structural heart disease. ?History of cardiac arrhythmias (on Eliquis therapy). Hypertension. Type 2 diabetes mellitus. Tobacco use. Morbid obesity. Assessment/Plan Continued all current supportive medical care. Morphine and [place] for pain management. DVT and GI prophylactics. Lipitor. Additional plan as per the hospital course. Plan discussed with: Patient LACY CLAYTON MD Nov 19, 2024 21:00
--- NOTE | 2024-11-19 23:14 | ECG ---
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
[2024-11-20] VITALS (7 sets, daily range): BP systolic 120–151; BP diastolic 67–102; PULSE 79–98; RESP 16–18; TEMP 97.7–98.7; O2SAT 93–98
--- NOTE | 2024-11-20 01:21 | DVHSR ---
APPROVED REPORT EXAM: Two-dimensional and M-mode echocardiogram with Doppler and color Doppler. Blood Pressure: 138/70 mmHg INDICATION Rule out CHF RISK FACTORS Height: 74, Weight: 224 DIMENSIONS LVDd5.6 (3.8-5.7cm)LA (2D)5.1 (1.9-4.0cm)Aortic Root3.8 (2.0-3.7cm) LVDs4.7 (2.5-4.0cm)LA (MM) (1.9-4.0cm)Aortic Cusp Exc1.9 (1.5-2.0cm) EF (%) 34.0 (55-70%)Rt. Atrium5.7 (1.9-4.0cm)Asc. Aorta cm IVSd1.4 (0.7-1.1cm)RV (D) (1.8-2.4cm) PWd1.5 (0.7-1.1cm) Mitral Valve MitralMitral Stenosis E wave0.92m/sMV Mean GR.mmHg A wavem/sMV Peak GR.66mmHg E/A ratio0.02D MVAcm2 DECEL TimemsPRESS 1/2 [id number] IVRTmsDop MVA2.55cm2 Aortic Valve Aortic ValveAortic Stenosis V10.76m/Aidan Mean GR.3mmHg V21.15m/Aidan Peak GR.5mmHg LVOT Diameter2.5 (1.8-2.4cm)Doppler AVA3.24cm2 Pulmonic Valve V20.85m/s Tricuspid Valve TR Velocity2.69m/s [id number] Conclusion MODERATELY DILATED LV GLOBAL LV HYPOKINESIS LV EF IS 34% AND IS MODERATELY REDUCED MODERATELY DILATED RV AND LA NORMAL VALVES NO EFFUSION
--- NOTE | 2024-11-20 11:38 | DVHPNRES ---
Progress Note Date Seen: Nov 20, 2024 Resident Creating Document: MITALI GENTILE RESIDENT Has the PT tested + for MRSA If YES, has PT been informed?: No Medical Necessity Reason Pt with a Central, PICC or Fol: No Subjective Review of Systems Juancarlos Persaud Jr. 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 He presents to the emergency department with abdominal pain radiating to the back, associated with nausea and vomiting. He describes the pain as 10/10 in intensity, constant in nature. He denies chest pain, shortness of breath, fever, chills, lightheadedness, weakness, dizziness, recent trauma, recent illnesses, or ingestion of spoiled food. Objective vital signs Vital Sign Date Time Temp Pulse Resp B/P (MAP) Pulse Ox O2 Delivery O2 Flow Rate FiO2 11/20/24 08:00 98.1 90 18 151/81 (104) 95 98.1 11/19/24 20:00 Room Air* 0 21 Total Intake and Output 11/19/24 11/19/24 11/20/24 15:00 23:00 07:00 Intake Total 150 ml 550 ml 516 ml Output Total 750 ml 850 ml Balance 150 ml -200 ml -334 ml medications Current Medications Medications Dose Ordered Sig/Nita Route Start Time Stop Time Status Last Admin Dose Admin Diagnostic Test (Pha) 1 strip Q6HR 11/17/24 12:00 11/20/24 05:10 1 STRIP Insulin Human Regular Q6HR SC 11/17/24 12:00 11/17/24 12:11 3 UNITS Dextrose 50 ml UD PRN IV 11/17/24 11:30 Acetaminophen/ Hydrocodone Bitart 1 tab Q4HP PRN PO 11/17/24 16:15 Ondansetron HCl 4 mg Q4HP PRN IV 11/17/24 16:15 Acetaminophen 650 mg Q6HP PRN PO 11/17/24 16:15 Morphine Sulfate 2 mg Q4HPRN PRN IV 11/17/24 16:15 Brimonidine Tartrate 1 drop DAILY EACHEYE 11/18/24 10:00 11/20/24 09:31 1 DROP Empaglifozin 10 mg QAM PO 11/18/24 07:00 11/20/24 06:38 10 MG Patient Own Medication 1 drop DAILY EACHEYE 11/18/24 10:00 Patient Own Medication 1 tab BID PO 11/17/24 22:00 Cancel Patient Own Medication 1 drop DAILY EACHEYE 11/18/24 10:00 Atorvastatin Calcium 40 mg HS PO 11/17/24 22:00 11/19/24 21:15 40 MG Donepezil HCl 10 mg BID PO 11/17/24 22:00 Hold Finasteride 5 mg DAILY PO 11/18/24 10:00 11/20/24 09:31 5 MG Pantoprazole Sodium 40 mg DAILY IV 11/18/24 10:00 11/20/24 09:30 40 MG Enoxaparin Sodium 80 mg Q12HR SC 11/18/24 22:00 UNV Enoxaparin Sodium 100 mg Q12HR SC 11/18/24 22:00 11/20/24 09:31 100 MG Spironolactone 25 mg DAILY PO 11/21/24 10:00 Examination General: Alert, oriented x3, cooperative, no acute distress Cardiovascular: Irregular rhythm with multiple PACs noted on ECG Respiratory: No distress, clear to auscultation bilaterally Gastrointestinal: Abdominal tenderness noted Neurologic: No focal deficits laboratory and microbiology Laboratory Tests 11/19/24 05:04 Test 11/19/24 05:04 Range/Units Serum Glucose 83 74-106 mg/dL Microbiology Date/Time Source Procedure Growth Status 11/17/24 09:18 Blood Blood Culture - Preliminary NO GROWTH AFTER 72 HOURS OF INCUBATION. Resulted Problem List/Assessment/Plan Problem List/Assessment/Plan Imaging and Diagnostic Studies: MRI Abdomen (11/17/24): Multiple hepatic cysts Cholelithiasis with gallbladder distension but no biliary ductal dilation 1.3 cm cystic mass in the body of the pancreas and 0.6 cm cystic mass in the tail of the pancreas, possibly neoplastic Assessment & Plan: #Pancreatic cysts, suspicious for cystic neoplasm #Cholelithiasis without acute cholecystitis Recommend endoscopic ultrasound with possible biopsy: transfer to high level of care Ca 19-9: 36 #Irregular rhythm with PACs #afib? #AV block type 2 mobitz 1 Cardiology consult Enoxaparin BID #Hypertensive heart disease with systolic dysfunction #HFrEF EF 34% - non exacerbated Continue jardiance Start spironolactone GDMT will be slowly started Cardiology on the case ECHO MODERATELY DILATED LV GLOBAL LV HYPOKINESIS LV EF IS 34% AND IS MODERATELY REDUCED MODERATELY DILATED RV AND LA NORMAL VALVES NO EFFUSION #BPH Continue finasteride Case discussed with Dr King Plan discussed with: Patient, Other (rn) My Orders My Orders Orders - MITALI GENTILE Procedure Category Date Status Time Spironolactone PHA 11/21/24 In Process (Aldactone) 10:00 Date of Service: Nov 20, 2024 Billing Provider: JOVANNI KING MD Common Visit Codes: [id number] INP/OBS CARE(HIGH) MITALI GENTILE Nov 20, 2024 11:38 JOVANNI KING MD Nov 21, 2024 13:46
--- NOTE | 2024-11-20 19:25 | DVHPN2 ---
Progress Note - Dictate Date Seen: Nov 20, 2024 Has the PT tested + for MRSA If YES, has PT been informed?: No Medical Necessity Reason Pt with a Central, PICC or Fol: No Subjective Patient was seen and evaluated in follow up. Patient is complaining of intermittent abdominal pain. Denies N/V. Patient awaiting for transfer to [facility] for endoscopic ultrasound with possible biopsy. Telemetry reviewed. vital signs Vital Sign Date Time Temp Pulse Resp B/P (MAP) Pulse Ox O2 Delivery O2 Flow Rate FiO2 11/20/24 16:47 98.1 80 18 126/67 (86) 95 98.1 11/20/24 08:00 Room Air* 0 21 Total Intake and Output 11/19/24 11/19/24 11/20/24 15:00 23:00 07:00 Intake Total 150 ml 550 ml 516 ml Output Total 750 ml 850 ml Balance 150 ml -200 ml -334 ml medications Current Medications Medications Dose Ordered Sig/Nita Route Start Time Stop Time Status Last Admin Dose Admin Diagnostic Test (Pha) 1 strip Q6HR 11/17/24 12:00 11/20/24 17:24 1 STRIP Insulin Human Regular Q6HR SC 11/17/24 12:00 11/17/24 12:11 3 UNITS Dextrose 50 ml UD PRN IV 11/17/24 11:30 Acetaminophen/ Hydrocodone Bitart 1 tab Q4HP PRN PO 11/17/24 16:15 Ondansetron HCl 4 mg Q4HP PRN IV 11/17/24 16:15 Acetaminophen 650 mg Q6HP PRN PO 11/17/24 16:15 Morphine Sulfate 2 mg Q4HPRN PRN IV 11/17/24 16:15 Brimonidine Tartrate 1 drop DAILY EACHEYE 11/18/24 10:00 11/20/24 09:31 1 DROP Empaglifozin 10 mg QAM PO 11/18/24 07:00 11/20/24 06:38 10 MG Patient Own Medication 1 drop DAILY EACHEYE 11/18/24 10:00 Patient Own Medication 1 tab BID PO 11/17/24 22:00 Cancel Patient Own Medication 1 drop DAILY EACHEYE 11/18/24 10:00 Atorvastatin Calcium 40 mg HS PO 11/17/24 22:00 11/19/24 21:15 40 MG Donepezil HCl 10 mg BID PO 11/17/24 22:00 Hold Finasteride 5 mg DAILY PO 11/18/24 10:00 11/20/24 09:31 5 MG Pantoprazole Sodium 40 mg DAILY IV 11/18/24 10:00 11/20/24 09:30 40 MG Enoxaparin Sodium 80 mg Q12HR SC 11/18/24 22:00 UNV Enoxaparin Sodium 100 mg Q12HR SC 11/18/24 22:00 11/20/24 09:31 100 MG Spironolactone 25 mg DAILY PO 11/21/24 10:00 objective GENERAL: Awake, alert, oriented. Obese. LUNGS: Clear. CARDIOVASCULAR: Heart sounds are good. ABDOMEN: Soft. laboratory and microbiology Laboratory Tests 11/19/24 05:04 Test 11/19/24 05:04 Range/Units Serum Glucose 83 74-106 mg/dL Problem List Sinus rhythm with transient Mobitz type 1. Rule out structural heart disease. ?History of cardiac arrhythmias (on Eliquis therapy). Hypertension. Type 2 diabetes mellitus. Tobacco use. Morbid obesity. Assessment/Plan Continued all current supportive medical care. Morphine and [place] for pain management. DVT and GI prophylactics. Lipitor. Additional plan as per the hospital course. Dietary Evaluation Review Comments: 1)Promote adequate PO intake 2) F/u with oncology 3) Refer to outpatient RD for weight management 4) Continue plan of care Expected Outcomes/Goals: 1) appetite and labs to improve 2) f/u in 3-5 days Plan discussed with: Patient LACY CLAYTON MD Nov 20, 2024 18:58
[2024-11-21] VITALS (9 sets, daily range): BP systolic 114–159; BP diastolic 64–97; PULSE 53–97; RESP 17–19; TEMP 36.9; O2SAT 94–96
[2024-11-21] MEDS: SPIRONOLACTONE 25 MG TAB PO SCH (09:26)
--- NOTE | 2024-11-21 11:34 | DVHPN2 ---
Progress Note - Dictate Date Seen: Nov 21, 2024 Has the PT tested + for MRSA If YES, has PT been informed?: No Medical Necessity Reason Pt with a Central, PICC or Fol: No Subjective Patient was seen and evaluated in follow up. No overnight events. Patient is resting in bed. Prelim blood cultures show no growth. Patient has been accepted to [facility], pending available bed for transfer. Telemetry reviewed. vital signs Vital Sign Date Time Temp Pulse Resp B/P (MAP) Pulse Ox O2 Delivery O2 Flow Rate FiO2 11/21/24 09:00 98.4 73 18 159/97 (117) 94 98.4 11/21/24 08:00 Room Air* 0 21 Total Intake and Output 11/20/24 11/20/24 11/21/24 15:00 23:00 07:00 Intake Total 240 ml 340 ml Output Total 1175 ml 550 ml Balance -935 ml -210 ml medications Current Medications Medications Dose Ordered Sig/Nita Route Start Time Stop Time Status Last Admin Dose Admin Diagnostic Test (Pha) 1 strip Q6HR 11/17/24 12:00 11/21/24 11:08 1 STRIP Insulin Human Regular Q6HR SC 11/17/24 12:00 11/17/24 12:11 3 UNITS Dextrose 50 ml UD PRN IV 11/17/24 11:30 Acetaminophen/ Hydrocodone Bitart 1 tab Q4HP PRN PO 11/17/24 16:15 Ondansetron HCl 4 mg Q4HP PRN IV 11/17/24 16:15 Acetaminophen 650 mg Q6HP PRN PO 11/17/24 16:15 Morphine Sulfate 2 mg Q4HPRN PRN IV 11/17/24 16:15 Brimonidine Tartrate 1 drop DAILY EACHEYE 11/18/24 10:00 11/21/24 09:26 1 DROP Empaglifozin 10 mg QAM PO 11/18/24 07:00 11/21/24 06:00 10 MG Patient Own Medication 1 drop DAILY EACHEYE 11/18/24 10:00 Patient Own Medication 1 tab BID PO 11/17/24 22:00 Cancel Patient Own Medication 1 drop DAILY EACHEYE 11/18/24 10:00 Atorvastatin Calcium 40 mg HS PO 11/17/24 22:00 11/20/24 22:03 40 MG Donepezil HCl 10 mg BID PO 11/17/24 22:00 Hold Finasteride 5 mg DAILY PO 11/18/24 10:00 11/21/24 09:26 5 MG Pantoprazole Sodium 40 mg DAILY IV 11/18/24 10:00 11/21/24 09:27 40 MG Enoxaparin Sodium 80 mg Q12HR SC 11/18/24 22:00 UNV Enoxaparin Sodium 100 mg Q12HR SC 11/18/24 22:00 11/21/24 09:27 100 MG Spironolactone 25 mg DAILY PO 11/21/24 10:00 11/21/24 09:26 25 MG objective GENERAL: Awake, alert, oriented. Obese. LUNGS: Clear. CARDIOVASCULAR: Heart sounds are good. ABDOMEN: Soft. laboratory and microbiology Laboratory Tests 11/19/24 05:04 Test 11/19/24 05:04 Range/Units Serum Glucose 83 74-106 mg/dL Problem List Sinus rhythm with transient Mobitz type 1. Rule out structural heart disease. ?History of cardiac arrhythmias (on Eliquis therapy). Hypertension. Type 2 diabetes mellitus. Tobacco use. Morbid obesity. Assessment/Plan Continued all current supportive medical care. Morphine and [place] for pain management. DVT and GI prophylactics. Lipitor. Additional plan as per the hospital course. Dietary Evaluation Review Comments: 1)Promote adequate PO intake 2) F/u with oncology 3) Refer to outpatient RD for weight management 4) Continue plan of care Expected Outcomes/Goals: 1) appetite and labs to improve 2) f/u in 3-5 days Plan discussed with: Patient LACY CLAYTON MD Nov 21, 2024 11:34
--- NOTE | 2024-11-21 14:43 | ECG ---
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
--- NOTE | 2024-11-21 17:26 | DVHDSRES ---
Discharge Summary Date of Admission Resident Creating Document: MITALI GENTILE RESIDENT Nov 17, 2024 at 16:13 Date of Discharge: Nov 21, 2024 Admitting Diagnosis intractable abdominal pain rule out pancreatic neoplasm Labs/Diagnostic Data: Laboratory Results Test 11/21/24 16:39 11/19/24 05:04 11/18/24 06:05 11/17/24 11:43 POC Glucose 103 mg/dl (70-106) White Blood Count 8.5 10^3/uL (4.4-10.8) Red Blood Count 5.29 10^6/uL (4.5-5.90) Hemoglobin 14.8 g/dL (13.5-17.5) Hematocrit 43.1 % (41.0-53.0) Mean Corpuscular Volume 81.5 fL (80.0-100.0) Mean Corpuscular Hemoglobin 28.0 pg (28.0-32.0) Mean Corpuscular Hemoglobin Concent 34.3 g/dL (32.0-36.0) Red Cell Distribution Width 14.0 % (11.8-14.3) Platelet Count 140 10^3/uL (140-450) Mean Platelet Volume 10.0 fL (6.9-10.8) Neutrophils (%) (Auto) 68.0 % (37.0-80.0) Lymphocytes (%) (Auto) 20.9 % (10.0-50.0) Monocytes (%) (Auto) 8.7 % (0.0-12.0) Eosinophils (%) (Auto) 1.5 % (0.0-7.0) Basophils (%) (Auto) 0.9 % (0.0-2.0) Neutrophils # (Auto) 5.8 10 ^3/uL (1.6-8.6) Lymphocytes # (Auto) 1.8 10 ^3/uL (0.4-5.4) Monocytes # (Auto) 0.7 10 ^3/uL (0-1.3) Eosinophils # (Auto) 0.1 10 ^3/uL (0-0.8) Basophils # (Auto) 0.1 10 ^3/uL (0-0.2) Nucleated Red Blood Cells 0.1 % Sodium Level 140 mmol/L (136-145) Potassium Level 3.5 mmol/L (3.5-5.1) Chloride Level 107 mmol/L (98-107) Carbon Dioxide Level 25 mmol/L (20-31) Anion Gap 8 (5-15) Blood Urea Nitrogen 10 mg/dL (9-23) Creatinine 0.95 mg/dL (0.700-1.30) Glomerular Filtration Rate Calc 85 mL/min (>90) BUN/Creatinine Ratio 10.5 (10.0-20.0) Serum Glucose 83 mg/dL (74-106) Calcium Level 9.3 mg/dL (8.7-10.4) Total Bilirubin 1.0 mg/dL (0.2-1.0) Aspartate Amino Transferase (AST) 22 U/L (13-40) Alanine Aminotransferase (ALT) 16 U/L (7-40) Alkaline Phosphatase 55 U/L (46-116) Total Protein 6.6 g/dL (5.7-8.2) Albumin 4.0 g/dL (3.2-4.8) Erythrocyte Sedimentation Rate 2 mm/hr (0-20) C-Reactive Protein High Sensitivity 0.80 mg/dL (<1.0) Troponin I High Sensitivity 21 ng/L (</=54) Free Prostate Specific Antigen 0.35 ng/mL (N/A) Percent Free Prostate Specific Ag 14.0 % (.) Prostate Specific Antigen Total 2.5 ng/mL (0.0-4.0) Test 11/17/24 10:24 11/17/24 09:18 11/17/24 09:00 Urine Color Light-yellow (Yellow) Urine Clarity Clear (Clear) Urine pH 6.5 (5.0-9.0) Urine Specific [place] 1.020 (1.001-1.035) Urine Protein Negative (Negative) Urine Ketones Negative (Negative) Urine Blood Negative /uL (Negative) Urine Nitrite Negative (Negative) Urine Bilirubin Negative (Negative) Urine Urobilinogen 2 mg/dL (Negative) Urine Leukocyte Esterase Negative /uL (Negative) Urine RBC 11 /hpf (0 - 3) Urine Microscopic WBC 3 /HPF (0-3) Urine Squamous Epithelial Cells Few /hpf (<5) Urine Bacteria None seen /hpf (None Seen) Urine Mucus Few (None Seen) Urine Glucose Normal mg/dL (Normal) CA 19-9 Antigen 36 U/mL (0-35) Prothrombin Time 11.3 sec (9.3-11.8) Prothrombin Time INR 1.07 (0.9-1.15) Activated Partial Thromboplast Time 28.2 SEC (24.5-34.5) Hemoglobin A1c 5.7 % A1C (<5.7) Lactic Acid Level 1.5 mmol/L (0.4-2.0) B-Type Natriuretic Peptide 27.12 pg/mL (0-100) Lipase 42 U/L (12-53) Other Laboratory Tests 11/19/24 05:04 Brief Hx & Hospital Course: A 74-year-old male with a past medical history of hypertension, type 2 diabetes mellitus, congestive heart failure with reduced ejection fraction (HFrEF 34%), atrioventricular (AV) block type 2 Mobitz 1, benign prostatic hyperplasia (BPH), and a history of prior hernia repair, bilateral eye surgery, and partial blindness, presented with severe abdominal pain radiating to the back, associated with nausea and vomiting. Imaging revealed multiple hepatic cysts, cholelithiasis with gallbladder distension but no biliary ductal dilation, and two pancreatic cystic lesions (1.3 cm in the body and 0.6 cm in the tail), concerning for neoplastic processes. Cardiology was consulted for irregular rhythm with premature atrial contractions (PACs), and anticoagulation with enoxaparin was initiated. The patient was managed with symptomatic treatment, including pain control and continuation of his home medications. Given the concern for pancreatic neoplasm, endoscopic ultrasound with biopsy was recommended. The patient remains hemodynamically stable and is being transferred to a higher level of care for further evaluation and definitive management. General: Alert, oriented x3, cooperative, no acute distress Cardiovascular: Irregular rhythm with multiple PACs noted on ECG Respiratory: No distress, clear to auscultation bilaterally Gastrointestinal: Abdominal tenderness noted Neurologic: No focal deficits Case discussed with Dr Moe Consults/Reason for consult surgery due to possible pancreatic neoplasm cardiology due to abnormalities in the ekg Operations or Procedures ORDERING PHYSICIAN: MICHAEL VALENTINO PROCEDURE(s): [id number] - MRI ABDOMEN W AND WO REASON: ORDER NUMBER(s): [id number], ACCESSION NUMBER(s): [id number] CLINICAL HISTORY: Abnormal findings on CT. Pancreatic masses. TECHNIQUE: Multi sequence multi planar MRI images of the abdomen were obtained prior to and after the uneventful administration of 20 mL [place] scan contrast. COMPARISON: CT dated 11/17/2024 and ultrasound dated 11/17/2024 FINDINGS: Multiple gallstones visualized in the gallbladder distended appearing gallbladder. No biliary ductal dilatation. Common bile duct measures up to 0.6 cm. Multiple cysts are seen in the liver, with the largest measuring up to 2 cm in the posterior right hepatic lobe. The spleen and adrenal glands are unremarkable. There is no hydronephrosis in either kidney. Cyst at the mid to inferior pole of the left kidney measures up to 2.1 cm. Small subcentimeter T2 hyperintense lesion in the inferior pole of the right kidney, likely a small cyst, but not well characterized due to its small size. Nonenhancing T2 hyperintense structure at the pancreatic body measures up to 3.2 cm in greatest dimension with thin septations. Nonenhancing 0.6 cm T2 hyperintense structure of the pancreatic tail, likely a cyst, although not correlating with the size of the structure seen on CT of the pancreatic tail. No other significant abnormality identified in the abdomen. IMPRESSION: 1. 3.2 cm cystic mass in the body of the pancreas and 0.6 cm cystic mass in the tail of the pancreas. Based on size morphology (no mural nodule, wall thickening, normal caliber main pancreatic duct, and no peripheral calcification), imaging surveillance with MRI every 6 months x4 recommended. If stable in size and morphology over the initial 2 years, reimage annually x2 then every other year X3, for a total of 10 years surveillance. If there is interval growth during surveillance EUS/ FNA +surgical consultation recommended ACR white paper on incidentally detected pancreatic cysts. 2. Multiple hepatic cysts. 3. Cholelithiasis with distended gallbladder. No biliary ductal dilatation. 4. Additional findings as detailed above Condition at Discharge: Stable Final Diagnosis/Problems List #Pancreatic cysts, suspicious for cystic neoplasm #Cholelithiasis without acute cholecystitis #Irregular rhythm with PACs #afib? #AV block type 2 mobitz 1 #Hypertensive heart disease with systolic dysfunction #HFrEF EF 34% - non exacerbated HLOC TRANSFER Discharge Disposition: Acute Care Facility Discharge Instruct/Medications Diet: See Comment Diet comment: transfer to high level of care Activity: No Restrictions, As Tolerated Follow Up/Referral: transfer to high level of care Medications: transfer to high level of care Discharge Statement: "Patient was advised to return to the ER or call 911 if any headaches, dizziness, shortness of breath, chest pain, abdominal pain, bleeding, fevers, or worsening of medical condition. Patient was counseled about treatment plan, medications, possible side effects, patientverbalized understanding. All questions were answered to the best of my ability. This discharge took greater then 30 minutes in planning, reviewing documentation, counseling the patient, and discussing with other team members." ASSESSMENT ASSESSMENT Assessment pancreatic cystic rule out neoplasm HLOC TRANSFER Date of Service: Nov 21, 2024 Billing Provider: RISHABH MOE DO Common Visit Codes: [id number] DISCH DAY >30min MITALI GENTILE RESIDENT Nov 21, 2024 17:26 RISHABH MOE DO Nov 23, 2024 16:53
== END 2024-11-21 20:55 | disposition short-term general hospital (02) | DRG 445 ==
LOC: ER 08:19 → OVERFLOW 16:13 → WEST WING 17:19 → TELE-WESTW 11-18 10:57
PROVIDERS: ADMIT Internal Medicine; ATTEND Internal Medicine
DX: K80.20 Calculus of gallbladder without cholecystitis without obstruction (principal); I50.22 Chronic systolic (congestive) heart failure; K86.2 Cyst of pancreas; R18.8 Other ascites; Z68.1 Body mass index [BMI] 19.9 or less, adult; N40.0 Benign prostatic hyperplasia without lower urinary tract symptoms; E66.01 Morbid (severe) obesity due to excess calories; H54.3 Unqualified visual loss, both eyes; I11.0 Hypertensive heart disease with heart failure; I44.1 Atrioventricular block, second degree; K52.9 Noninfective gastroenteritis and colitis, unspecified; K74.60 Unspecified cirrhosis of liver; E11.9 Type 2 diabetes mellitus without complications; N30.90 Cystitis, unspecified without hematuria; Z79.01 Long term (current) use of anticoagulants; Z82.49 Family history of ischemic heart disease and other diseases of the circulatory system; Z87.891 Personal history of nicotine dependence; Z88.0 Allergy status to penicillin; Z79.82 Long term (current) use of aspirin
CPT/HCPCS: 36415; 74176; 74183; 76700; 80053; 81001; 82962; 83036; 83605; 83690; 83880; 84154; 84484; 85025; 85610; 85652; 85730; 86141; 86301; 87040; 93005; 93306; G0378; J1815; J2405; J2470

== ENCOUNTER 2025-02-04 02:50 | Inpatient (IN) | payer MEDICARE, MEDICAID ==
[~2025-02-04] VITALS: Ht 188 cm; Wt 112.0 kg
[~2025-02-04 02:50] MED LIST: APIX5TAB PO; ASPI-325 PO; ATOR40TA52 PO; BIMA0.01 EACHEYE; BRIM0.2S17 EACHEYE; DONE1TAB88 PO; DORZ2SOL18 EACHEYE; EMPA1TAB PO
--- NOTE | 2025-02-04 03:02 | ED.PDOC ---
GI ASSESSMENT HPI Comments 74-year-old male who came to ER via EMS for abdominal pain. At about 12 midnight, started experiencing diffuse abdominal pain, associated bouts of nausea and vomiting (5x) prompting check up at the ER. Patient was seen here last November 2024 for similar complaints, was diagnosed with #Pancreatic cysts, suspicious for cystic neoplasm #Cholelithiasis without acute cholecystitis. Patient was then transferred hospital in [place]. Patient is a poor informant, and has no recollection of the management that they did to him at [place] Chief Complaint: Abdominal Pain Time Seen by MD: 05:01 Allergies: Coded Allergies: Penicillins (Verified Allergy, Unknown, 11/17/24) Home Meds Reported Medications Apixaban Base (ELIQUIS) 5 Mg Tab, 1 TAB PO DAILY 11/17/24 Dorzolamide-Timolol (Dorzolamide Hcl/Timolol M) 1 Ml Julia, 1 DROP EACHEYE DAILY 11/17/24 Bimatoprost (Lumigan) 0.01 % Julia, 1 DROP EACHEYE DAILY 11/17/24 Brimonidine Tartrate (Brimonidine Tartrate) 0.2 % Julia, 1 DROP EACHEYE DAILY 11/17/24 Atorvastatin Calcium (ATORVASTATIN CALCIUM) 40 Mg Tab, 1 TAB PO 11/17/24 Empagliflozin (Jardiance) 10 Mg Tab, 1 TAB PO QAM 11/17/24 Aspirin (Aspirin Low Dose) 81 Mg Tab, 1 TAB PO DAILY 11/17/24 Donepezil Hydrochloride (DONEPEZIL HCL) 10 Mg Tab, 1 TAB PO BID 11/17/24 Information Source: Patient Mode of Arrival: EMS Timing: Hours Duration: Since onset Prehospital treatment: Treatment (Zofran) Quality: Cramping Vomitus: Watery Stool: Normal Severity: Moderate Recent: Possible spoiled food Recent Hx of: Abdominal Operations Pain Location: Diffuse Modifying Factors: Nothing Associated sign and symptoms: Nausea, Vomiting, Abdominal Pain Past Medical History PAST MEDICAL HISTORY: AFIB, CHF, DM, HTN Past Medical History (Other): #Pancreatic cysts, suspicious for cystic neoplasm#Cholelithiasis without acute cholecystitis#Irregular rhythm with PACs#afib?#AV block type 2mobitz 1 #Hypertensive heart disease with systolic dysfunction #HFrEF EF 34% -non exacerbated Surgical History: Hernia Repair Family History Family History: Unknown Social History Smoker: Non-Smoker Alcohol: Denies ETOH Use Drugs: Denies Drug Use Lives In: Home Constitutional: denies: chills, diaphoresis, fatigue, fever, malaise, sweats, weakness, others EENTM: denies: blurred vision, double vision, ear bleeding, ear discharge, ear drainage, ear pain, ear ringing, eye pain, eye redness, hearing loss, mouth pain, mouth swelling, nasal discharge, nose bleeding, nose congestion, nose pain, photophobia, tearing, throat pain, throat swelling, voice changes, others Respiratory: denies: cough, hemoptysis, orthopnea, SOB at rest, shortness of breath, SOB with excertion, stridor, wheezing, others Cardiovascular: denies: chest pain, dizzy spells, diaphoresis, Dyspnea on exertion, edema, irregular heart beat, left arm pain, lightheadedness, palpitations, PND, syncope, others Gastrointestinal: reports: abdominal pain, nausea, vomiting; denies: abdomen distended, blood streaked bowels, constipated, diarrhea, dysphagia, difficulty swallowing, hematemesis, melena, poor appetite, poor fluid intake, rectal bleeding, rectal pain, others Genitourinary: denies: burning, dysuria, flank pain, frequency, hematuria, incontinence, penile discharge, penile sore, pain, testicle pain, testicle swelling, urgency, others Neurological: denies: dizziness, fainting, headache, left sided numbness, left sided weakness, numbness, paresthesia, pre-existing deficit, right sided numbness, right sided weakness, seizure, speech problems, tingling, tremors, weakness, others Musculoskeletal: denies: back pain, gout, joint pain, joint swelling, muscle pain, muscle stiffness, neck pain, others Integumetry: denies: bruises, change in color, change in hair/nails, dryness, laceration, lesions, lumps, rash, wounds, others Allergic/Immunocompromised: denies: Difficulty Healing, Frequent Infections, Hives, Itching, others Hematologic/Lymphatic: denies: anemia, blood clots, easy bleeding, easy bruising, swollen glands, others Endocrine: denies: excessive hunger, excessive sweating, excessive thirst, excessive urination, flushing, intolerance to cold, intolerance to heat, unexplained weight gain, unexplained weight loss, others Psychiatric: denies: anxiety, bipolar disorder, depression, hopeless, panic disorder, schizophrenia, sleepless, suicidal, others Physical Exam General Appearance: No Apparent Distress, Normal HEENT: Normal ENT Inspection, Pharynx Normal, TMs Normal Neck: Full Range of Motion, Non-Tender, Normal, Normal Inspection Respiratory: Chest Non-Tender, Lungs Clear, No Accessory Muscle Use, No Respiratory Distress, Normal Breath Sounds Cardiovascular: No Edema, No JVD, No Murmur, No Gallop, Normal Peripheral Pulses, Regular Rate/Rhythm Breast Exam: Deferred Gastrointestinal: Diffuse, No Organomegaly, No Pulsatile Mass, Normal Bowel Sounds, Soft, Tenderness Genitalia: Deferred Pelvic: Deferred Rectal: Deferred Extremities: No calf tenderness, Normal capillary refill, Normal inspection, Normal range of motion, Non-tender, No pedal edema Musculoskeletal : Apperance: Normal Neurologic: Alert, claim technician II-XII nml as Tested, No Motor Deficits, Normal Affect, Normal Mood, No Sensory Deficits Cerebellar Function: Normal Reflexes: Normal Skin: Dry, Normal Color, Warm Lymphatic: No Adenopathy Was a procedure done? Was a procedure done?: No GI differential Dx Differential Diagnosis: Diverticular disease, Gastritis/PUD, Gastroenteritis, Hernia, Pancreatitis, UTI, Urolithiasis, Dehydration, Electrolyte Imbalance, Food Poisoning X-Ray, Labs, Meds, VS Vital Signs Date Time Temp Pulse Resp B/P (MAP) Pulse Ox O2 Delivery O2 Flow Rate FiO2 02/04/25 04:36 80 22 158/107 02/04/25 04:34 82 22 96 Room Air* 0 21 02/04/25 04:31 98.1 81 19 173/90 (117) 94 98.1 02/04/25 04:06 81 22 173/90 02/04/25 02:50 97.4 80 16 196/110 (138) 95 97.4 02/04/25 02:50 82 Lab Test 02/04/25 04:38 02/04/25 03:50 02/04/25 03:09 Range/Units Urine Color Light-yellow Yellow Urine Clarity Clear Clear Urine pH 6.0 5.0-9.0 Urine Specific [place] 1.024 1.001-1.035 Urine Protein Trace H Negative Urine Ketones Negative Negative Urine Blood Negative Negative /uL Urine Nitrite Negative Negative Urine Bilirubin Negative Negative Urine Urobilinogen Normal Negative mg/dL Urine Leukocyte Esterase Negative Negative /uL Urine RBC 1 0 - 3 /hpf Urine Microscopic WBC 1 0-3 /HPF Urine Squamous Epithelial Cells Few <5 /hpf Urine Bacteria None seen None Seen /hpf Urine Glucose Normal Normal mg/dL Troponin I High Sensitivity 15 15 </=54 ng/L White Blood Count 8.0 4.4-10.8 10^3/uL Red Blood Count 5.75 4.5-5.90 10^6/uL Hemoglobin 15.7 13.5-17.5 g/dL Hematocrit 47.4 41.0-53.0 % Mean Corpuscular Volume 82.4 80.0-100.0 fL Mean Corpuscular Hemoglobin 27.2 L 28.0-32.0 pg Mean Corpuscular Hemoglobin Concent 33.0 32.0-36.0 g/dL Red Cell Distribution Width 14.7 H 11.8-14.3 % Platelet Count 134 L 140-450 10^3/uL Mean Platelet Volume 9.7 6.9-10.8 fL Neutrophils (%) (Auto) 85.7 H 37.0-80.0 % Lymphocytes (%) (Auto) 8.1 L 10.0-50.0 % Monocytes (%) (Auto) 4.8 0.0-12.0 % Eosinophils (%) (Auto) 0.5 0.0-7.0 % Basophils (%) (Auto) 0.9 0.0-2.0 % Neutrophils # (Auto) 6.8 1.6-8.6 10 ^3/uL Lymphocytes # (Auto) 0.6 0.4-5.4 10 ^3/uL Monocytes # (Auto) 0.4 0-1.3 10 ^3/uL Eosinophils # (Auto) 0 0-0.8 10 ^3/uL Basophils # (Auto) 0.1 0-0.2 10 ^3/uL Nucleated Red Blood Cells 0.1 % Sodium Level 145 136-145 mmol/L Potassium Level 4.4 3.5-5.1 mmol/L Chloride Level 112 H 98-107 mmol/L Carbon Dioxide Level 25 20-31 mmol/L Anion Gap 8 5-15 Blood Urea Nitrogen 8 L 9-23 mg/dL Creatinine 1.11 0.700-1.30 mg/dL Glomerular Filtration Rate Calc 71 >90 mL/min BUN/Creatinine Ratio 7.2 L 10.0-20.0 Serum Glucose 150 H 74-106 mg/dL Calcium Level 10.3 8.7-10.4 mg/dL Total Bilirubin 0.7 0.2-1.0 mg/dL Aspartate Amino Transferase (AST) 13 13-40 U/L Alanine Aminotransferase (ALT) 9 7-40 U/L Alkaline Phosphatase 64 46-116 U/L Total Protein 7.8 5.7-8.2 g/dL Albumin 4.8 3.2-4.8 g/dL Current Medications Medications (Trade) Dose Ordered Sig/Nita Route Start Time Stop Time Status Last Admin Sodium Chloride 1,000 ml @ 1,000 mls/hr Q1H ONCE IV 02/04/25 03:00 02/04/25 03:59 DC 02/04/25 03:55 Ondansetron HCl (Zofran) 4 mg ONCE ONCE IV 02/04/25 03:00 02/04/25 03:01 DC 02/04/25 03:55 Morphine Sulfate 4 mg ONCE ONCE IV 02/04/25 03:00 02/04/25 03:01 DC 02/04/25 04:06 CHEST RADIOGRAPH Indication: abdominal pain Technique: Single frontal view of the chest was obtained Comparison: None IMPRESSION: Heart appears prominent in size. The lungs appear clear without focal airspace opacity, effusion, or pneumothorax. Mild pulmonary vascular congestion. Time of 1ST Reevaluation: 03:02 Reevaluation 1ST: Unchanged Patient Education/Counseling: Diagnosis, Treatment Family Education/Counseling: No Family Present Departure 1 Departure Time of Disposition: 05:26 (Patient presented with abdominal pain that was concerning for possible appendicits, gastritis, cholecystitis, colitis, gastroenteritis, sbo, or orther possible surgical emergency. Data: 1. I ordered and reviewed the result of at least 3 labs including a CBC, BMP, and Urinalysis. 2. I independently interpreted the following tests: CT Abdoment and Pelvis is c oncerning for malignancy _ .Risk:This patient has a high risk of morbidity due to further diagnostic testing or treatment and may suffer from an acute abdominal process disorder. Workup reveals malignancy and patient should be admitted for further workup. and possible expert consultation. ) Impression: Primary Impression: Intractable abdominal pain Additional Impression: Projectile vomiting Qualified Codes: R11.12 - Projectile vomiting Disposition: 09 ADMITTED INPATIENT Admit to: Med Surg Condition: Serious Critical Care Note Critical Care Time?: Yes Critical care comment: Intractable abdominal pain Authorized and Performed by: Nikki Cleveland MD Total critical care time: Approximately 34 minutes Due to a high probability of clinically significant, life threatening deterioration, the patient required my highest level of preparedness to intervene emergently and I personally spent this critical care time directly and personally managing the patient. This critical care time included obtaining a history; examining the patient; pulse oximetry; ordering and review of studies; arranging urgent treatment with development of a management plan; evaluation of patient's response to treatment; frequent reassessment; and, discussions with other providers. This critical care time was performed to assess and manage the high probability of imminent, life-threatening deterioration that could result in multi-organ failure. It was exclusive of separately billable procedures and treating other patients and teaching time. Please see my other sections and the rest of the note for further information on patient assessment and treatment. Stability Stability form required: No Heart Score Heart Score: Heart Score Response (Comments) Value History N/A 0 EKG N/A 0 Age N/A 0 Risk Factors N/A 0 Troponin N/A 0 Total 0 I personally scribed for NIKKI CLEVELAND MD (DVDE) on 02/04/25 at 03:02. Electronically submitted by Jacob Burroughs ([place]). I personally scribed for NIKKI CLEVELAND MD ([email or web address]) on 02/04/25 at 05:03. Electronically submitted by Jacob Burroughs ([place]). NIKKI CLEVELAND MD February 04, 2025 03:02
[2025-02-04 03:24] LABS: Basophils # (auto) 0.1 10 ^3/uL (0-0.2); Basophils % (auto) 0.9 % (0.0-2.0); Eosinophils # (auto) 0 10 ^3/uL (0-0.8); Eosinophils % (auto) 0.5 % (0.0-7.0); Hematocrit 47.4 % (41.0-53.0); Hemoglobin 15.7 g/dL (13.5-17.5); Lymphocytes # (auto) 0.6 10 ^3/uL (0.4-5.4); Lymphocytes % (auto) 8.1 % (10.0-50.0); Mean Corpuscular Hemoglobin 27.2 pg (28.0-32.0); Mean Corpuscular Volume 82.4 fL (80.0-100.0); Monocytes # (auto) 0.4 10 ^3/uL (0-1.3); Monocytes % (auto) 4.8 % (0.0-12.0); Neutrophils # (auto) 6.8 10 ^3/uL (1.6-8.6); Neutrophils % (auto) 85.7 % (37.0-80.0); Nucleated Red Blood Cells % 0.1 %; Platelet Count (auto) 134 10^3/uL (140-450); Red Blood Cells 5.75 10^6/uL (4.5-5.90); Red Cell Distribution Width 14.7 % (11.8-14.3)
[2025-02-04 03:40] LABS: Albumin 4.8 g/dL (3.2-4.8); Alkaline Phosphatase 64 U/L (46-116); Anion Gap 8 (5-15); BUN/Creatinine Ratio 7.2 (10.0-20.0); Bilirubin, Total 0.7 mg/dL (0.2-1.0); Calcium 10.3 mg/dL (8.7-10.4); Carbon Dioxide 25 mmol/L (20-31); Potassium 4.4 mmol/L (3.5-5.1); Sodium 145 mmol/L (136-145); Total Protein 7.8 g/dL (5.7-8.2)
[2025-02-04 03:41] LABS: Aspartate Aminotransferase 13 U/L (13-40); Blood Urea Nitrogen 8 mg/dL (9-23); Chloride 112 mmol/L (98-107); Glucose 150 mg/dL (74-106)
[2025-02-04 03:42] LABS: Alanine Aminotransferase 9 U/L (7-40)
[2025-02-04] MEDS: ONDANSETRON HCL 4 MG/2 ML VIAL IV ONE (03:55)
[2025-02-04] MEDS: SODIUM CHLORIDE 0.9% 1,000 ML IV ONE (03:55)
[2025-02-04] MEDS: MORPHINE SULFATE 4 MG/ML SYR/VIAL IV ONE (04:06)
[2025-02-04] MEDS: IOHEXOL 300 MG/ML 100ML BOTTLE IJ ONE (04:17)
[2025-02-04 04:34] VITALS: PULSE 82; RESP 22; O2SAT 96
[2025-02-04 04:44] LABS: Urine Bacteria None Seen /hpf (None Seen)
--- NOTE | 2025-02-04 04:49 | DVH ---
CHEST RADIOGRAPH Indication: abdominal pain Technique: Single frontal view of the chest was obtained Comparison: None IMPRESSION: Heart appears prominent in size. The lungs appear clear without focal airspace opacity, effusion, or pneumothorax. Mild pulmonary vascular congestion.
[2025-02-04 04:54] LABS: Urine Blood Negative /uL (Negative); Urine Clarity Clear (Clear); Urine Color Light-Yellow (Yellow); Urine Protein, UAD TRACE (Negative); Urine Specific Gravity 1.024 (1.001-1.035); Urine Squamous Epithelial Cell FEW /hpf (<5); Urine Urobilinogen Normal (Negative); Urine WBC 1 /HPF (0-3)
--- NOTE | 2025-02-04 05:12 | DVH ---
Exam: CT CT AB PEL WITH IV CON ONLY History: abdominal pain Comparison Study: 11/17/2024 Contrast: 100 cc Omnipaque 300 TECHNIQUE: A digital hhas image was obtained. During the uneventful, intravenous administration of c ontrast material, multislice data acquisition was obtained through the abdomen and pelvis. The data s et was subsequently reconstructed into axial images. Images were reviewed on a work station using a c ombination of axial and multiplanar using a variety of window levels and settings. All CT scans at this medical facility are performed using dose modulation techniques as appropriate t o a performed exam including the following: Automated exposure control was utilized; adjustment of th e MA and/or KV according to patient size; and use of iterative reconstruction technique. Radiation Dose Information: CT Dose: CTDI volume is 24.8 mGy. Dose-length product is 1577 mGy*cm FINDINGS: Imaged portions of the lung bases appear unremarkable. The heart appears prominent size with coronary artery calcifications. There is a small hiatal hernia. Hepatic hypodensities appear stable. There is cholelithiasis. Spleen and right adrenal gland appear u nremarkable. Stable 2.1 cm nodule of the left adrenal gland. Ill-defined area measuring 2.6 cm in the left kidney stable 2.8 cm cystic lesion of the mid pancreati c body. No evidence of pancreatic ductal dilatation. No evidence of bowel obstruction or focal bowel wall thickening. The appendix appears normal. No free fluid, free air, or adenopathy. No suspicious osseous lesion. IMPRESSION: 1. No acute abnormality in the abdomen or pelvis. 2. Stable 2.8 cm of the pancreatic body, MRI has not yet been performed, is recommended for further c haracterization. 3. Stable left adrenal nodule, likely adenoma by previous examination. 4. Similar appearance of cholelithiasis. 5. Ill-defined area in the left kidney may represent poorly delineated cyst versus other etiology. Ch aracterization by MRI can be performed at the same time as left adrenal adenoma and pancreatic cystic lesion.
[2025-02-04 07:10] LABS: Lipase 34 U/L (12-53)
[2025-02-04 07:12] LABS: Amylase 79 U/L (30-118)
[2025-02-04] MEDS ORDERED: MORPHINE SULFATE INJ 2 MG/ml SYRG IV PRN ×2 (07:45)
[2025-02-04] MEDS ORDERED: ACETAMINOPHEN 325 MG TAB PO PRN (07:45)
[2025-02-04] MEDS ORDERED: NITROGLYCERIN 0.4 MG SL TAB SL PRN (07:45)
[2025-02-04] MEDS ORDERED: DEXTROSE (50%) 50ML SYRG IV PRN (07:45)
[2025-02-04] MEDS ORDERED: ONDANSETRON HCL 4 MG/2 ML VIAL IV PRN (07:45)
--- NOTE | 2025-02-04 07:54 | DVHHP2 ---
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 Patient states the pain is 10/10 throbbing tight and constant in nature. Patient denies any chest pain, shortness of breath, fever, chills, lightheadedness, weakness, dizziness, recent trauma or injury, recent illnesses, or recent ingestion of spoiled food. Patient also reports that the last time he was here in November he was transferred to [place] and they had performed a biopsy. He states that he is not too sure what the results are but he was told to "come in for colonoscopy for a tissue on his liver." Patient also reports that he is not taking apixaban. 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 Hiatal hernia Cholelithiasis BPH Past Surgical History: Hernia Repair, Other (Bilateral eye surgery) Family History: Other (Mom with heart disease) Smoke: Quit ALCOHOL: none Drugs: None Lives: with Family Domestic Violence: Neg Review of Systems Gastrointestinal: Nausea, Vomiting, Abdominal Pain, Other (Left flank pain) Musculoskeletal: other (Left flank pain) Allergies: Coded Allergies: Penicillins (Verified Allergy, Unknown, 11/17/24) Medications Current Medications Medications Dose Ordered Sig/Nita Route Start Time Stop Time Status Last Admin Dose Admin Acetaminophen/ Hydrocodone Bitart 1 tab Q4HP PRN PO 02/04/25 07:45 UNV Ondansetron HCl 4 mg Q4HP PRN IV 02/04/25 07:45 UNV Enoxaparin Sodium 40 mg DAILY SC 02/04/25 10:00 UNV Acetaminophen 650 mg Q6HP PRN PO 02/04/25 07:45 UNV Morphine Sulfate 2 mg Q4HPRN PRN IV 02/04/25 07:45 UNV Nitroglycerin 0.4 mg Q5MINP PRN SL 02/04/25 07:45 UNV Exam Vital Signs Vital Signs Date Time Temp Pulse Resp B/P (MAP) Pulse Ox O2 Delivery O2 Flow Rate FiO2 02/04/25 07:08 98.3 78 18 170/96 (120) 95 98.3 02/04/25 04:34 Room Air* 0 21 General Appearance: Alert, Oriented X3, Cooperative HEENT: Atraumatic, PERRLA, EOMI, Mucous membr. moist/pink Respiratory: Normal air movement Cardiovascular: Normal S1, Normal S2 Abdominal: Soft Extremities: No clubbing, No cyanosis, No edema Skin: No significant lesion Neuro: Normal speech, Normal tone, Sensation intact Psych/Mental Status: Mental status NL, Mood NL Labs/Xrays Labs Test 02/04/25 06:02 02/04/25 04:38 02/04/25 03:09 Range/Units Troponin I High Sensitivity 15 </=54 ng/L Urine Color Light-yellow Yellow Urine Clarity Clear Clear Urine pH 6.0 5.0-9.0 Urine Specific [place] 1.024 1.001-1.035 Urine Protein Trace H Negative Urine Ketones Negative Negative Urine Blood Negative Negative /uL Urine Nitrite Negative Negative Urine Bilirubin Negative Negative Urine Urobilinogen Normal Negative mg/dL Urine Leukocyte Esterase Negative Negative /uL Urine RBC 1 0 - 3 /hpf Urine Microscopic WBC 1 0-3 /HPF Urine Squamous Epithelial Cells Few <5 /hpf Urine Bacteria None seen None Seen /hpf Urine Glucose Normal Normal mg/dL White Blood Count 8.0 4.4-10.8 10^3/uL Red Blood Count 5.75 4.5-5.90 10^6/uL Hemoglobin 15.7 13.5-17.5 g/dL Hematocrit 47.4 41.0-53.0 % Mean Corpuscular Volume 82.4 80.0-100.0 fL Mean Corpuscular Hemoglobin 27.2 L 28.0-32.0 pg Mean Corpuscular Hemoglobin Concent 33.0 32.0-36.0 g/dL Red Cell Distribution Width 14.7 H 11.8-14.3 % Platelet Count 134 L 140-450 10^3/uL Mean Platelet Volume 9.7 6.9-10.8 fL Neutrophils (%) (Auto) 85.7 H 37.0-80.0 % Lymphocytes (%) (Auto) 8.1 L 10.0-50.0 % Monocytes (%) (Auto) 4.8 0.0-12.0 % Eosinophils (%) (Auto) 0.5 0.0-7.0 % Basophils (%) (Auto) 0.9 0.0-2.0 % Neutrophils # (Auto) 6.8 1.6-8.6 10 ^3/uL Lymphocytes # (Auto) 0.6 0.4-5.4 10 ^3/uL Monocytes # (Auto) 0.4 0-1.3 10 ^3/uL Eosinophils # (Auto) 0 0-0.8 10 ^3/uL Basophils # (Auto) 0.1 0-0.2 10 ^3/uL Nucleated Red Blood Cells 0.1 % Sodium Level 145 136-145 mmol/L Potassium Level 4.4 3.5-5.1 mmol/L Chloride Level 112 H 98-107 mmol/L Carbon Dioxide Level 25 20-31 mmol/L Anion Gap 8 5-15 Blood Urea Nitrogen 8 L 9-23 mg/dL Creatinine 1.11 0.700-1.30 mg/dL Glomerular Filtration Rate Calc 71 >90 mL/min BUN/Creatinine Ratio 7.2 L 10.0-20.0 Serum Glucose 150 H 74-106 mg/dL Calcium Level 10.3 8.7-10.4 mg/dL Total Bilirubin 0.7 0.2-1.0 mg/dL Aspartate Amino Transferase (AST) 13 13-40 U/L Alanine Aminotransferase (ALT) 9 7-40 U/L Alkaline Phosphatase 64 46-116 U/L Total Protein 7.8 5.7-8.2 g/dL Albumin 4.8 3.2-4.8 g/dL Amylase Level 79 30-118 U/L Lipase 34 12-53 U/L CHEST RADIOGRAPH Indication: abdominal pain Technique: Single frontal view of the chest was obtained Comparison: None IMPRESSION: Heart appears prominent in size. The lungs appear clear without focal airspace opacity, effusion, or pneumothorax. Mild pulmonary vascular congestion. Exam: CT CT AB PEL WITH IV CON ONLY History: abdominal pain Comparison Study: 11/17/2024 Contrast: 100 cc Omnipaque 300 TECHNIQUE: A digital sourcing intern image was obtained. During the uneventful, intravenous administration of contrast material, multislice data acquisition was obtained through the abdomen and pelvis. The data set was subsequently reconstructed into axial images. Images were reviewed on a work station using a combination of axial and multiplanar using a variety of window levels and settings. All CT scans at this medical facility are performed using dose modulation techniques as appropriate to a performed exam including the following: Automated exposure control was utilized; adjustment of the MA and/or KV according to patient size; and use of iterative reconstruction technique. Radiation Dose Information: CT Dose: CTDI volume is 24.8 mGy. Dose-length product is 1577 mGy*cm FINDINGS: Imaged portions of the lung bases appear unremarkable. The heart appears prominent size with coronary artery calcifications. There is a small hiatal hernia. Hepatic hypodensities appear stable. There is cholelithiasis. Spleen and right adrenal gland appear unremarkable. Stable 2.1 cm nodule of the left adrenal gland. Ill-defined area measuring 2.6 cm in the left kidney stable 2.8 cm cystic lesion of the mid pancreatic body. No evidence of pancreatic ductal dilatation. No evidence of bowel obstruction or focal bowel wall thickening. The appendix appears normal. No free fluid, free air, or adenopathy. No suspicious osseous lesion. IMPRESSION: 1. No acute abnormality in the abdomen or pelvis. 2. Stable 2.8 cm of the pancreatic body, MRI has not yet been performed, is recommended for further characterization. 3. Stable left adrenal nodule, likely adenoma by previous examination. 4. Similar appearance of cholelithiasis. 5. Ill-defined area in the left kidney may represent poorly delineated cyst versus other etiology. Characterization by MRI can be performed at the same time as left adrenal adenoma and pancreatic cystic lesion. Assessment/Plan Assessment/Plan Assessment Intractable abdominal and right flank pain pain with nausea and vomiting Hypertensive urgency probable due to pain Diabetes type 2 Cholelithiasis Hiatal hernia 2.1 cm nodule of the left great adrenal gland 2.8 cm cystic lesion of the mid pancreatic body ? 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 Plan Admit to med surge Antihypertensives Strict I&Os Daily weights Hemoglobin A1c ISS and Accu-Cheks UA CT abdomen and pelvis noted Antiemetics Pain management Troponin Amylase Lipase Renal ultrasound ordered CA 19 -9 in November was 36 Diet Last echo on 11/20/2024 EF 34% Home medications reconciled DVT prophylaxis -Lovenox PUD prophylaxis-PPIs Discussed plan of care with patient and nurse Social work-medical records from [facility] Rounding hospitalist to decide MRI abdomen Plan discussed with: Patient My Orders Orders - MICHAEL VALENTINO Procedure Category Date Status Time Carbohydrate Antigen LAB 02/04/25 In Process 19-9 Admit ADMIT 02/04/25 Transmitted 07:31 Allergies TESS 02/04/25 In Process 07:31 Code Status CODE 02/04/25 Transmitted 07:31 Hydrocodone-Acet PHA 02/04/25 Logged 5/325mg Tab ([place] 07:45 Ondansetron Hcl PHA 02/04/25 Logged (Zofran) 07:45 Enoxaparin Sodium PHA 02/04/25 Logged (Lovenox) 10:00 Complete Blood Count LAB 02/05/25 Verified 04:00 Comprehensive LAB 02/05/25 Verified Metabolic Panel 04:00 Cardiac DIET 02/04/25 Transmitted Diet-2gna,Lofat,Lochol Breakfast Acetaminophen Tablet PHA 02/04/25 Logged (Tylenol Tablet) 07:45 Morphine Sulfate PHA 02/04/25 Logged Injection 07:45 Nitroglycerin PHA 02/04/25 Logged Sublingual (Ntrostat 07:45 Morphine Sulfate PHA 02/04/25 Logged Injection 07:45 Stat Ekg For Chest TESS 02/04/25 In Process Pain 07:31 Notify Of Changes BANNER 02/04/25 In Process From Base 07:31 Household Chores For BANNER 02/04/25 In Process 24 Hours 07:31 Emergency Dysrhythmia BANNER 02/04/25 In Process Protocol 07:31 Rhythm Strips Once BANNER 02/04/25 In Process Every Shift 07:31 Oxygen By Nasal RT 02/04/25 Transmitted Cannula 07:31 Glucose Blood PHA 02/04/25 Logged (Accu-Chek Comfort 11:30 Mild Sliding Scale PHA 02/04/25 Transmitted 11:30 Dextrose 50% Syringe PHA 02/04/25 Transmitted 07:45 Hemoglobin A1c LAB 02/04/25 Logged 07:31 Date of Service: February 04, 2025 Billing Provider: MICHAEL VALENTINO Common Visit Codes: [id number] INP/OBS CARE (HIGH) MICHAEL VALENTINO February 04, 2025 07:54
--- NOTE | 2025-02-04 08:25 | DVH ---
EXAM: US Retroperitoneal Limited, Renal CLINICAL INDICATION: left flank pain TECHNIQUE: Real-time limited ultrasound of the retroperitoneum with image documentation. COMPARISON: None FINDINGS: RIGHT KIDNEY: Right kidney measures up to 10.3 cm. No stones. No hydronephrosis. LEFT KIDNEY: Left kidney measures up to 11.0 cm. No stones. No hydronephrosis. BLADDER: Unremarkable urinary bladder. Prevoid volume 325 cc. OTHER FINDINGS: . IMPRESSION: No acute findings in the retroperitoneum.
[2025-02-04] MEDS: InsuLIN REG 1unit/0.01ml Soln (100units/ml) SC SCH (11:30)
[2025-02-04] MEDS: ACCU-CHEK COMFORT CURVE STRIP VI SCH (13:04)
[2025-02-04] MEDS: ASPirin-EC 81 mg tab PO SCH (13:14)
[2025-02-04] MEDS: DONEPEZIL HYDROCHLORIDE 5 MG TAB PO SCH (13:14)
[2025-02-04] MEDS: ENOXAPARIN SOD 40 MG/0.4 ML SYRINGE SC SCH (13:14)
--- NOTE | 2025-02-04 13:27 | DVHPN2 ---
Reviewed: Care Plan, H&P, Labs, Medications, Previous Orders, Radiology Changes from previous H/P or p: No Changes Gastrointestinal: Nausea, Vomiting, Abdominal Pain, Other (Left flank pain) Musculoskeletal: other (Left flank pain) Objective Vitals Vital Signs Date Time Temp Pulse Resp B/P (MAP) Pulse Ox O2 Delivery O2 Flow Rate FiO2 02/04/25 07:08 98.3 78 18 170/96 (120) 95 98.3 02/04/25 04:34 Room Air* 0 21 Intake/Output Intake and Output 02/04/25 07:00 Intake Total 1000 ml Balance 1000 ml Intake IV Total 1000 ml Medications Current Medications Medications Dose Ordered Sig/Nita Route Start Time Stop Time Status Last Admin Dose Admin Acetaminophen/ Hydrocodone Bitart 1 tab Q4HP PRN PO 02/04/25 07:45 Ondansetron HCl 4 mg Q4HP PRN IV 02/04/25 07:45 Enoxaparin Sodium 40 mg DAILY SC 02/04/25 10:00 02/04/25 13:14 40 MG Acetaminophen 650 mg Q6HP PRN PO 02/04/25 07:45 Morphine Sulfate 2 mg Q4HPRN PRN IV 02/04/25 07:45 Nitroglycerin 0.4 mg Q5MINP PRN SL 02/04/25 07:45 Morphine Sulfate 2 mg Q30M PRN IV 02/04/25 07:45 Diagnostic Test (Pha) 1 strip ACHS 02/04/25 11:30 02/04/25 13:04 1 STRIP Insulin Human Regular ACHS SC 02/04/25 11:30 Dextrose 50 ml UD PRN IV 02/04/25 07:45 Aspirin 81 mg DAILY PO 02/04/25 10:00 02/04/25 13:14 81 MG Empaglifozin 10 mg QAM PO 02/05/25 07:00 Donepezil HCl 10 mg BID PO 02/04/25 10:00 02/04/25 13:14 10 MG Atorvastatin Calcium 40 mg HS PO 02/04/25 22:00 Hydralazine HCl 10 mg Q6HP PRN IV 02/04/25 08:00 Laboratory Results Laboratory Tests 02/04/25 03:09 Chemistry Test 02/04/25 03:09 Albumin 4.8 g/dL (3.2-4.8) Calcium Level 10.3 mg/dL (8.7-10.4) Total Protein 7.8 g/dL (5.7-8.2) Lipid panel Test 02/04/25 03:09 Lipase 34 U/L (12-53) LFT Test 02/04/25 03:09 Alanine Aminotransferase (ALT) 9 U/L (7-40) Alkaline Phosphatase 64 U/L (46-116) Aspartate Amino Transferase (AST) 13 U/L (13-40) Total Bilirubin 0.7 mg/dL (0.2-1.0) HgA1c, TSH Test 02/04/25 03:09 Hemoglobin A1c 5.6 % A1C (<5.7) Urinalysis Test 02/04/25 04:38 Urine Color Light-yellow (Yellow) Urine Clarity Clear (Clear) Urine pH 6.0 (5.0-9.0) Urine Specific [place] 1.024 (1.001-1.035) Urine Protein Trace (Negative) H Urine Ketones Negative (Negative) Urine Blood Negative /uL (Negative) Urine Nitrite Negative (Negative) Urine Bilirubin Negative (Negative) Urine Urobilinogen Normal mg/dL (Negative) Urine Leukocyte Esterase Negative /uL (Negative) Urine RBC 1 /hpf (0 - 3) Urine Microscopic WBC 1 /HPF (0-3) Urine Squamous Epithelial Cells Few /hpf (<5) Urine Bacteria None seen /hpf (None Seen) Urine Glucose Normal mg/dL (Normal) Labs and/or images reviewed: Labs reviewed by me, Image(s) reviewed by me Assessment/Plan Assessment/Plan Intractable abdominal and lt flank pain pain with nausea and vomiting, GI consult for Dr. 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
[2025-02-04 15:43] VITALS: BP 154/86; PULSE 83; RESP 16; TEMP 98.5; O2SAT 94
[2025-02-04 16:38] VITALS: BP 156/96; PULSE 78; RESP 17; TEMP 97.6; O2SAT 92
[2025-02-04 20:00] VITALS: RESP 16
[2025-02-04 21:00] VITALS: BP 104/84; PULSE 79; RESP 18; TEMP 97.7; O2SAT 96
[2025-02-04] MEDS: ATORVASTATIN 20 MG TAB PO SCH (22:01)
[2025-02-05] VITALS (8 sets, daily range): BP systolic 101–144; BP diastolic 71–89; PULSE 61–88; RESP 17–20; TEMP 96.5–98.2; O2SAT 92–96
[2025-02-05 06:19] LABS: Basophils # (auto) 0 10 ^3/uL (0-0.2); Basophils % (auto) 0.6 % (0.0-2.0); Eosinophils # (auto) 0.1 10 ^3/uL (0-0.8); Eosinophils % (auto) 0.7 % (0.0-7.0); Hematocrit 43.2 % (41.0-53.0); Hemoglobin 14.4 g/dL (13.5-17.5); Lymphocytes # (auto) 1.5 10 ^3/uL (0.4-5.4); Lymphocytes % (auto) 20.7 % (10.0-50.0); Mean Corpuscular Hemoglobin 27.2 pg (28.0-32.0); Mean Corpuscular Hgb Conc. 33.4 g/dL (32.0-36.0); Mean Corpuscular Volume 81.4 fL (80.0-100.0); Monocytes # (auto) 0.9 10 ^3/uL (0-1.3); Monocytes % (auto) 12.2 % (0.0-12.0); Neutrophils # (auto) 4.7 10 ^3/uL (1.6-8.6); Neutrophils % (auto) 65.8 % (37.0-80.0); Nucleated Red Blood Cells % 0.1 %; Platelet Count (auto) 122 10^3/uL (140-450); Red Blood Cells 5.31 10^6/uL (4.5-5.90); White Blood Cell 7.1 10^3/uL (4.4-10.8)
[2025-02-05 06:32] LABS: Alkaline Phosphatase 55 U/L (46-116); Anion Gap 6 (5-15); Aspartate Aminotransferase 19 U/L (13-40); BUN/Creatinine Ratio 7.6 (10.0-20.0); Calcium 9.5 mg/dL (8.7-10.4); Carbon Dioxide 28 mmol/L (20-31); Potassium 3.7 mmol/L (3.5-5.1); Sodium 143 mmol/L (136-145); Total Protein 6.5 g/dL (5.7-8.2)
[2025-02-05 06:33] LABS: Bilirubin, Total 1.2 mg/dL (0.2-1.0)
[2025-02-05 06:39] LABS: Alanine Aminotransferase < 9 U/L (7-40); Blood Urea Nitrogen 8 mg/dL (9-23); Chloride 109 mmol/L (98-107); Glucose 107 mg/dL (74-106)
[2025-02-05] MEDS: EMPAGLIFLOZIN 10 MG TAB PO SCH (06:41)
--- NOTE | 2025-02-05 07:54 | DVHINCON2 ---
Date of service: Feb 05, 2025 Referring Physician Carlos Reason for Consultation abdominal pain nausea and vomiting History of Present Illness The patient is a 74-year-old male with a known history diabetes, hypertension, hyperlipidemia, CHF, history of blindness, history of atrial fibrillation, with a known history of a pancreatic cyst, admitted with severe left-sided abdominal pain radiating to the back associated with nausea and vomiting. Patient states that his symptoms has resolved. The pain is a 2/10. He is able to tolerated diet. He denies any nausea. Patient states that he was told in the past that the cyst would be surgically removed. Past Medical History HTN DM HLD CHF Blindness Cholelithiasis Pancreatic Cyst Past Surgical History Hernia Repair Eye surgery Family History: Alcoholism MOTHER FH: dementia MOTHER Hypertension MOTHER Family History No gi diseases or malignancy Social History prior tobacco no etoh or drugs Allergies: Coded Allergies: Penicillins (Verified Allergy, Unknown, 11/17/24) Home Meds Reported Medications Apixaban Base (ELIQUIS) 5 Mg Tab, 1 TAB PO DAILY 11/17/24 Dorzolamide-Timolol (Dorzolamide Hcl/Timolol M) 1 Ml Julia, 1 DROP EACHEYE DAILY 11/17/24 Bimatoprost (Lumigan) 0.01 % Julia, 1 DROP EACHEYE DAILY 11/17/24 Brimonidine Tartrate (Brimonidine Tartrate) 0.2 % Julia, 1 DROP EACHEYE DAILY 11/17/24 Atorvastatin Calcium (ATORVASTATIN CALCIUM) 40 Mg Tab, 1 TAB PO 11/17/24 Empagliflozin (Jardiance) 10 Mg Tab, 1 TAB PO QAM 11/17/24 Aspirin (Aspirin Low Dose) 81 Mg Tab, 1 TAB PO DAILY 11/17/24 Donepezil Hydrochloride (DONEPEZIL HCL) 10 Mg Tab, 1 TAB PO BID 11/17/24 Current Medications Current Medications Medications (Trade) Dose Ordered Sig/Nita Route PRN Reason Start Time Stop Time Status Last Admin Enoxaparin Sodium (Lovenox) 40 mg DAILY SC 02/04/25 10:00 02/04/25 13:14 Diagnostic Test (Pha) (Accu-Chek Comfort Curve T) 1 strip ACHS 02/04/25 11:30 02/05/25 06:42 Insulin Human Regular (InsuLIN R) ACHS SC 02/04/25 11:30 Aspirin (Ecotrin Enteric Coated Tablet) 81 mg DAILY PO 02/04/25 10:00 02/04/25 13:14 Empaglifozin (Jardiance) 10 mg QAM PO 02/05/25 07:00 02/05/25 06:41 Donepezil HCl (Aricept Tablet) 10 mg BID PO 02/04/25 10:00 02/04/25 22:01 Atorvastatin Calcium (Lipitor) 40 mg HS PO 02/04/25 22:00 02/04/25 22:01 Hydralazine HCl (Apresoline Injection) 10 mg Q6HP PRN IV SBP>150 02/04/25 08:00 Review of Systems ROS as per HPI Vital Signs Vital Signs Date Time Temp Pulse Resp B/P (MAP) Pulse Ox O2 Delivery O2 Flow Rate FiO2 02/05/25 05:00 97.4 65 17 136/89 (105) 95 97.4 02/04/25 20:00 Room Air* 0 21 Physical Exam Gen: A/O x4 NCAT EOMI PERRLA OP CLEAR RRR S/NT/ND nabs No c,c e Labs/Diagnostic Data Labs Test 02/05/25 06:40 02/05/25 05:39 02/04/25 07:25 02/04/25 06:02 Range/Units POC Glucose 102 70-106 mg/dl White Blood Count 7.1 4.4-10.8 10^3/uL Red Blood Count 5.31 4.5-5.90 10^6/uL Hemoglobin 14.4 13.5-17.5 g/dL Hematocrit 43.2 41.0-53.0 % Mean Corpuscular Volume 81.4 80.0-100.0 fL Mean Corpuscular Hemoglobin 27.2 L 28.0-32.0 pg Mean Corpuscular Hemoglobin Concent 33.4 32.0-36.0 g/dL Red Cell Distribution Width 14.0 11.8-14.3 % Platelet Count 122 L 140-450 10^3/uL Mean Platelet Volume 9.8 6.9-10.8 fL Neutrophils (%) (Auto) 65.8 37.0-80.0 % Lymphocytes (%) (Auto) 20.7 10.0-50.0 % Monocytes (%) (Auto) 12.2 H 0.0-12.0 % Eosinophils (%) (Auto) 0.7 0.0-7.0 % Basophils (%) (Auto) 0.6 0.0-2.0 % Neutrophils # (Auto) 4.7 1.6-8.6 10 ^3/uL Lymphocytes # (Auto) 1.5 0.4-5.4 10 ^3/uL Monocytes # (Auto) 0.9 0-1.3 10 ^3/uL Eosinophils # (Auto) 0.1 0-0.8 10 ^3/uL Basophils # (Auto) 0 0-0.2 10 ^3/uL Nucleated Red Blood Cells 0.1 % Sodium Level 143 136-145 mmol/L Potassium Level 3.7 3.5-5.1 mmol/L Chloride Level 109 H 98-107 mmol/L Carbon Dioxide Level 28 20-31 mmol/L Anion Gap 6 5-15 Blood Urea Nitrogen 8 L 9-23 mg/dL Creatinine 1.05 0.700-1.30 mg/dL Glomerular Filtration Rate Calc 75 >90 mL/min BUN/Creatinine Ratio 7.6 L 10.0-20.0 Serum Glucose 107 H 74-106 mg/dL Calcium Level 9.5 8.7-10.4 mg/dL Total Bilirubin 1.2 H 0.2-1.0 mg/dL Aspartate Amino Transferase (AST) 19 13-40 U/L Alanine Aminotransferase (ALT) < 9 7-40 U/L Alkaline Phosphatase 55 46-116 U/L Total Protein 6.5 5.7-8.2 g/dL Albumin 4.0 3.2-4.8 g/dL Troponin I High Sensitivity 15 </=54 ng/L Test 02/04/25 04:38 02/04/25 03:09 Range/Units Urine Color Light-yellow Yellow Urine Clarity Clear Clear Urine pH 6.0 5.0-9.0 Urine Specific [place] 1.024 1.001-1.035 Urine Protein Trace H Negative Urine Ketones Negative Negative Urine Blood Negative Negative /uL Urine Nitrite Negative Negative Urine Bilirubin Negative Negative Urine Urobilinogen Normal Negative mg/dL Urine Leukocyte Esterase Negative Negative /uL Urine RBC 1 0 - 3 /hpf Urine Microscopic WBC 1 0-3 /HPF Urine Squamous Epithelial Cells Few <5 /hpf Urine Bacteria None seen None Seen /hpf Urine Glucose Normal Normal mg/dL Hemoglobin A1c 5.6 <5.7 % A1C Amylase Level 79 30-118 U/L Lipase 34 12-53 U/L Assessment 1.abdominal pain' 2.nausea and vomiting 3.cholelithiasis 4.pancreatic cyst Problems(with codes): (1) Ascites (2) Cholecystitis (3) Cirrhosis (4) Pancreatic cyst (5) Abdominal pain (6) Cystitis (7) Non-specific colitis (8) Projectile vomiting (9) Intractable abdominal pain Plan/Recommendation 1. Patient is tolerating a diet, would discharge home and have him follow up as an outpatient 2. Patient needs surgical referral or workup for his pancreatic cystic lesion 3. Advance diet as tolerated 4. Follow up with his primary care physician as an outpatient as well as GI. Plan discussed with: Patient ELIEL PENNY MD Feb 05, 2025 07:54
--- NOTE | 2025-02-05 10:45 | DVHPN2 ---
Reviewed: Care Plan, H&P, Labs, Medications, Previous Orders, Radiology Changes from previous H/P or p: No Changes Gastrointestinal: Nausea, Vomiting, Abdominal Pain, Other (Left flank pain) Musculoskeletal: other (Left flank pain) Objective Vitals Vital Signs Date Time Temp Pulse Resp B/P (MAP) Pulse Ox O2 Delivery O2 Flow Rate FiO2 02/05/25 09:00 98.2 61 18 134/72 (92) 95 98.2 02/05/25 08:00 Room Air* 0 21 Intake/Output Intake and Output 02/05/25 07:00 Intake Total 350 ml Output Total 302 ml Balance 48 ml Intake Oral 350 ml Output Urine Total 300 ml Stool Total 2 ml Medications Current Medications Medications Dose Ordered Sig/Nita Route Start Time Stop Time Status Last Admin Dose Admin Acetaminophen/ Hydrocodone Bitart 1 tab Q4HP PRN PO 02/04/25 07:45 Ondansetron HCl 4 mg Q4HP PRN IV 02/04/25 07:45 Enoxaparin Sodium 40 mg DAILY SC 02/04/25 10:00 02/04/25 13:14 40 MG Acetaminophen 650 mg Q6HP PRN PO 02/04/25 07:45 Morphine Sulfate 2 mg Q4HPRN PRN IV 02/04/25 07:45 Nitroglycerin 0.4 mg Q5MINP PRN SL 02/04/25 07:45 Morphine Sulfate 2 mg Q30M PRN IV 02/04/25 07:45 Diagnostic Test (Pha) 1 strip ACHS 02/04/25 11:30 02/05/25 06:42 1 STRIP Insulin Human Regular ACHS SC 02/04/25 11:30 Dextrose 50 ml UD PRN IV 02/04/25 07:45 Aspirin 81 mg DAILY PO 02/04/25 10:00 02/05/25 10:05 81 MG Empaglifozin 10 mg QAM PO 02/05/25 07:00 02/05/25 06:41 10 MG Donepezil HCl 10 mg BID PO 02/04/25 10:00 02/05/25 10:05 10 MG Atorvastatin Calcium 40 mg HS PO 02/04/25 22:00 02/04/25 22:01 40 MG Hydralazine HCl 10 mg Q6HP PRN IV 02/04/25 08:00 Laboratory Results Laboratory Tests 02/05/25 05:39 Chemistry Test 02/05/25 05:39 Albumin 4.0 g/dL (3.2-4.8) Calcium Level 9.5 mg/dL (8.7-10.4) Total Protein 6.5 g/dL (5.7-8.2) LFT Test 02/05/25 05:39 Alanine Aminotransferase (ALT) < 9 U/L (7-40) Alkaline Phosphatase 55 U/L (46-116) Aspartate Amino Transferase (AST) 19 U/L (13-40) Total Bilirubin 1.2 mg/dL (0.2-1.0) H Urinalysis Test 02/04/25 04:38 Urine Color Light-yellow (Yellow) Urine Clarity Clear (Clear) Urine pH 6.0 (5.0-9.0) Urine Specific [place] 1.024 (1.001-1.035) Urine Protein Trace (Negative) H Urine Ketones Negative (Negative) Urine Blood Negative /uL (Negative) Urine Nitrite Negative (Negative) Urine Bilirubin Negative (Negative) Urine Urobilinogen Normal mg/dL (Negative) Urine Leukocyte Esterase Negative /uL (Negative) Urine RBC 1 /hpf (0 - 3) Urine Microscopic WBC 1 /HPF (0-3) Urine Squamous Epithelial Cells Few /hpf (<5) Urine Bacteria None seen /hpf (None Seen) Urine Glucose Normal mg/dL (Normal) Labs and/or images reviewed: Labs reviewed by me, Image(s) reviewed by me Assessment/Plan Assessment/Plan Intractable abdominal and lt flank pain pain with nausea and vomiting, GI consult for Dr. 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 cm cystic lesion of the mid pancreatic body MRCP ordered Hypertension CHF AFib Time spent 70 minutes Advanced care planning time 20 minutes Patient is full code Plan discussed with: Patient My Orders Orders - VAUGHN WILSON MD Procedure Category Date Status Time * Gi Dvh Blind Aide CONS 02/04/25 Transmitted 13:24 Education - Smoking TESS 02/04/25 In Process Cessation 16:15 Hepatitis B Surface LAB 02/04/25 In Process Antigen 16:15 * Shellac Polisher CONS 02/04/25 Transmitted Consult 16:15 Date of Service: Feb 05, 2025 Billing Provider: VAUGHN WILSON MD Common Visit Codes: [id number] INP/OBS CARE(HIGH) VAUGHN WILSON MD Feb 05, 2025 10:45
--- NOTE | 2025-02-05 15:47 | DVH ---
CLINICAL INFORMATION: Pancreatic cyst on CT. TECHNIQUE: Multisequence multiplanar MRI images of the abdomen were obtained without IV contrast. Fani esteban T2-weighted MRCP images were obtained. 3D MRCP images were created. COMPARISON: CT dated 02/04/2025. FINDINGS: 3.2 cm septated, lobulated cyst at the body of the pancreas is stable compared to the prior MRI. Grossly stable 0.6 cm T2 hyperintense focus of the pancreatic tail, likely cyst. Multiple galls tones visualized in the gallbladder. There appears to be some mild wall thickening and pericholecysti c fluid. No biliary ductal dilatation. No filling defect or stricture identified in the common bile d uct on MRCP. Common bile duct measures up to 0.6 cm in diameter. Pancreatic duct appears unremarkable . There are multiple hepatic cysts, similar to the prior exam. Spleen is unremarkable. Cyst in the le ft kidney appears stable. Small subcentimeter T2 hyperintense foci in the right kidney appear stable, likely small cysts, but too small to characterize. 2 cm left adrenal nodule is stable and most consi stent with a benign lipid rich adenoma based on prior imaging. There is no abdominal aortic aneurysm. IMPRESSION: 1. 3.2 cm cystic mass of the body of the pancreas appears stable compared to MRI dated 11/17/2024. Pe r ACR white paper on incidentally detected pancreatic cysts, recommend reimaging every 6 months x4. I f stable over the initial 2 years, reimage annually x2 then every other year X3 to demonstrate 10 yea r stability. If there is interval growth during the surveillance. EUS/ FNA and surgical consultation would be recommended. Alternatively, EUS/ FNA could be obtained in lieu of surveillance imaging. 2. 0.6 cm cyst of the pancreatic tail can also be evaluated on follow-up imaging for the larger cyst of the pancreatic body. 3. Stable left adrenal nodule, most consistent with a benign lipid rich adenoma. 4. Cholelithiasis the gallbladder wall appears thickened on this exam and there appears to be pericho lecystic fluid. Correlate clinically to exclude acute cholecystitis. If clinically indicated, ultraso und could be obtained to further characterize. 5. No biliary ductal dilatation. No filling defect or stricture identified in the common bile duct on MRCP.
[2025-02-06] VITALS (7 sets, daily range): BP systolic 118–165; BP diastolic 72–102; PULSE 60–89; RESP 18–20; TEMP 97.5–98.4; O2SAT 94–97
[2025-02-06] MEDS: hydrALAZINE HCL 20 MG/ML VL IV PRN (08:33)
--- NOTE | 2025-02-06 11:54 | DVHPN2 ---
Reviewed: Care Plan, H&P, Labs, Medications, Previous Orders, Radiology Changes from previous H/P or p: No Changes Gastrointestinal: Nausea, Vomiting, Abdominal Pain, Other (Left flank pain) Musculoskeletal: other (Left flank pain) Objective Vitals Vital Signs Date Time Temp Pulse Resp B/P (MAP) Pulse Ox O2 Delivery O2 Flow Rate FiO2 02/06/25 09:30 98.2 85 18 165/102 (123) 96 98.2 02/06/25 08:00 Room Air* 0 21 Intake/Output Intake and Output 02/06/25 07:00 Intake Total 1550 ml Output Total 400 ml Balance 1150 ml Intake Oral 1550 ml Output Urine Total 400 ml Stool Total 0 ml # Voids 3 Medications Current Medications Medications Dose Ordered Sig/Nita Route Start Time Stop Time Status Last Admin Dose Admin Acetaminophen/ Hydrocodone Bitart 1 tab Q4HP PRN PO 02/04/25 07:45 Ondansetron HCl 4 mg Q4HP PRN IV 02/04/25 07:45 Enoxaparin Sodium 40 mg DAILY SC 02/04/25 10:00 02/06/25 10:56 40 MG Acetaminophen 650 mg Q6HP PRN PO 02/04/25 07:45 Morphine Sulfate 2 mg Q4HPRN PRN IV 02/04/25 07:45 Nitroglycerin 0.4 mg Q5MINP PRN SL 02/04/25 07:45 Morphine Sulfate 2 mg Q30M PRN IV 02/04/25 07:45 Aspirin 81 mg DAILY PO 02/04/25 10:00 02/06/25 10:56 81 MG Empaglifozin 10 mg QAM PO 02/05/25 07:00 02/06/25 06:01 10 MG Donepezil HCl 10 mg BID PO 02/04/25 10:00 02/06/25 10:57 10 MG Atorvastatin Calcium 40 mg HS PO 02/04/25 22:00 02/05/25 21:53 40 MG Hydralazine HCl 10 mg Q6HP PRN IV 02/04/25 08:00 02/06/25 08:33 10 MG Laboratory Results Laboratory Tests 02/05/25 05:39 Urinalysis Test 02/04/25 04:38 Urine Color Light-yellow (Yellow) Urine Clarity Clear (Clear) Urine pH 6.0 (5.0-9.0) Urine Specific [place] 1.024 (1.001-1.035) Urine Protein Trace (Negative) H Urine Ketones Negative (Negative) Urine Blood Negative /uL (Negative) Urine Nitrite Negative (Negative) Urine Bilirubin Negative (Negative) Urine Urobilinogen Normal mg/dL (Negative) Urine Leukocyte Esterase Negative /uL (Negative) Urine RBC 1 /hpf (0 - 3) Urine Microscopic WBC 1 /HPF (0-3) Urine Squamous Epithelial Cells Few /hpf (<5) Urine Bacteria None seen /hpf (None Seen) Urine Glucose Normal mg/dL (Normal) Labs and/or images reviewed: Labs reviewed by me, Image(s) reviewed by me Assessment/Plan Assessment/Plan Intractable abdominal and lt flank pain pain with nausea and vomiting, GI consult for Dr. Barrett Hypertensive urgency probable due to pain Diabetes type 2 Cholelithiasis Hiatal hernia 3.8 cm stable cystic lesion of the mid pancreatic body MRCP , advised repeat MRI in six-months Possible Cholecystitis: HIDA scan, consult for Dr Desai Hypertension CHF AFib Time spent 50 minutes Advanced care planning time 20 minutes Patient is full code Plan discussed with: Patient Date of Service: Feb 06, 2025 Billing Provider: VAUGHN WILSON MD Common Visit Codes: [id number] INP/OBS CARE(HIGH) VAUGHN WILSON MD Feb 06, 2025 11:54
--- NOTE | 2025-02-06 12:04 | ECG ---
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
--- NOTE | 2025-02-06 14:37 | DVHPN2 ---
Subjective Patient admitted with severe left-sided abdominal pain. Radiating to the back with nausea and vomiting Patient denies nausea and vomiting at this time. No melena or red blood in stool. Denies hematemesis Status post EGD in [place] about five months ago, unsure about results Reviewed: Care Plan, H&P, Labs, Medications, Previous Orders, Radiology Changes from previous H/P or p: No Changes Gastrointestinal: Nausea, Vomiting, Abdominal Pain, Other (Left flank pain) Musculoskeletal: other (Left flank pain) Objective Vitals Vital Signs Date Time Temp Pulse Resp B/P (MAP) Pulse Ox O2 Delivery O2 Flow Rate FiO2 02/06/25 13:00 98.4 89 18 157/101 (119) 97 98.4 02/06/25 08:00 Room Air* 0 21 Intake/Output Intake and Output 02/06/25 07:00 Intake Total 1550 ml Output Total 400 ml Balance 1150 ml Intake Oral 1550 ml Output Urine Total 400 ml Stool Total 0 ml # Voids 3 General Appearance: Alert, Oriented X3, Cooperative, No acute distress, mild distress, moderate distress, severe distress, Other Lungs: Clear to auscultation, Normal air movement, Other Cardiovascular: Regular rate, Normal S1, Normal S2, No murmurs, Gallops, Rubs, Other Abdomen: Normal bowel sounds, Soft, No tenderness, No hepatospenomegaly, No masses, Other Medications Current Medications Medications Dose Ordered Sig/Nita Route Start Time Stop Time Status Last Admin Dose Admin Acetaminophen/ Hydrocodone Bitart 1 tab Q4HP PRN PO 02/04/25 07:45 Ondansetron HCl 4 mg Q4HP PRN IV 02/04/25 07:45 Enoxaparin Sodium 40 mg DAILY SC 02/04/25 10:00 02/06/25 10:56 40 MG Acetaminophen 650 mg Q6HP PRN PO 02/04/25 07:45 Morphine Sulfate 2 mg Q4HPRN PRN IV 02/04/25 07:45 Nitroglycerin 0.4 mg Q5MINP PRN SL 02/04/25 07:45 Morphine Sulfate 2 mg Q30M PRN IV 02/04/25 07:45 Aspirin 81 mg DAILY PO 02/04/25 10:00 02/06/25 10:56 81 MG Empaglifozin 10 mg QAM PO 02/05/25 07:00 6/2/25 06:01 10 MG Donepezil HCl 10 mg BID PO 02/04/25 10:00 02/06/25 10:57 10 MG Atorvastatin Calcium 40 mg HS PO 02/04/25 22:00 02/05/25 21:53 40 MG Hydralazine HCl 10 mg Q6HP PRN IV 02/04/25 08:00 02/06/25 11:59 10 MG Laboratory Results Laboratory Tests 02/05/25 05:39 Urinalysis Test 02/04/25 04:38 Urine Color Light-yellow (Yellow) Urine Clarity Clear (Clear) Urine pH 6.0 (5.0-9.0) Urine Specific [place] 1.024 (1.001-1.035) Urine Protein Trace (Negative) H Urine Ketones Negative (Negative) Urine Blood Negative /uL (Negative) Urine Nitrite Negative (Negative) Urine Bilirubin Negative (Negative) Urine Urobilinogen Normal mg/dL (Negative) Urine Leukocyte Esterase Negative /uL (Negative) Urine RBC 1 /hpf (0 - 3) Urine Microscopic WBC 1 /HPF (0-3) Urine Squamous Epithelial Cells Few /hpf (<5) Urine Bacteria None seen /hpf (None Seen) Urine Glucose Normal mg/dL (Normal) Labs and/or images reviewed: Labs reviewed by me, Image(s) reviewed by me Assessment/Plan Assessment/Plan Abdominal pain Nausea and vomiting improved Cholelithiasis Pancreatic cyst Plan Discussed with Dr. Marte CA 19-9, PT and INR Recommend surgical consult HIDA scan NPO after midnight Obtain records of EGD from [facility] Recommend outpatient referral to higher level of care for pancreatic cyst for possible EUS We will continue to monitor patient Plan discussed with: Patient My Orders Orders - GINNY WILSON Procedure Category Date Status Time Carbohydrate Antigen LAB 02/06/25 Transmitted 19-9 Prothrombin Time W/ LAB 02/06/25 Transmitted INR 14:32 Date of Service: Feb 06, 2025 Billing Provider: GINNY WILSON Common Visit Codes: [id number] INP/OBS CARE(HIGH) GINNY WILSON Feb 06, 2025 14:37
[2025-02-06 15:30] LABS: INR 1.15 (0.9-1.15)
[2025-02-07] VITALS (9 sets, daily range): BP systolic 126–155; BP diastolic 66–91; PULSE 66–99; RESP 16–22; TEMP 97.5–98.2; O2SAT 93–98
[2025-02-07] MEDS: HYDROcodone-ACET 5/325MG TAB PO PRN (07:59)
--- NOTE | 2025-02-07 11:09 | DVHPN2 ---
Reviewed: Care Plan, H&P, Labs, Medications, Previous Orders, Radiology Changes from previous H/P or p: No Changes Gastrointestinal: Nausea, Vomiting, Abdominal Pain, Other (Left flank pain) Musculoskeletal: other (Left flank pain) Objective Vitals Vital Signs Date Time Temp Pulse Resp B/P (MAP) Pulse Ox O2 Delivery O2 Flow Rate FiO2 02/07/25 08:53 97.9 79 20 141/91 (108) 93 97.9 02/07/25 08:00 Room Air* 0 21 Intake/Output Intake and Output 02/07/25 07:00 Intake Total 900 ml Output Total 1900 ml Balance -1000 ml Intake Oral 900 ml Output Urine Total 1900 ml # Bowel Movements 1 General Appearance: Alert, Oriented X3, Cooperative, No acute distress, mild distress, moderate distress, severe distress, Other Lungs: Clear to auscultation, Normal air movement, Other Cardiovascular: Regular rate, Normal S1, Normal S2, No murmurs, Gallops, Rubs, Other Abdomen: Normal bowel sounds, Soft, No tenderness, No hepatospenomegaly, No masses, Other Medications Current Medications Medications Dose Ordered Sig/Nita Route Start Time Stop Time Status Last Admin Dose Admin Acetaminophen/ Hydrocodone Bitart 1 tab Q4HP PRN PO 02/04/25 07:45 02/07/25 07:59 1 TAB Ondansetron HCl 4 mg Q4HP PRN IV 02/04/25 07:45 Enoxaparin Sodium 40 mg DAILY SC 02/04/25 10:00 02/07/25 09:41 40 MG Acetaminophen 650 mg Q6HP PRN PO 02/04/25 07:45 Morphine Sulfate 2 mg Q4HPRN PRN IV 02/04/25 07:45 Nitroglycerin 0.4 mg Q5MINP PRN SL 02/04/25 07:45 Morphine Sulfate 2 mg Q30M PRN IV 02/04/25 07:45 Aspirin 81 mg DAILY PO 02/04/25 10:00 02/07/25 09:40 81 MG Empaglifozin 10 mg QAM PO 02/05/25 07:00 02/07/25 05:08 10 MG Donepezil HCl 10 mg BID PO 02/04/25 10:00 02/07/25 09:40 10 MG Atorvastatin Calcium 40 mg HS PO 02/04/25 22:00 02/06/25 21:20 40 MG Hydralazine HCl 10 mg Q6HP PRN IV 02/04/25 08:00 02/07/25 05:04 10 MG Laboratory Results Laboratory Tests 02/05/25 05:39 Coagulation Test 02/06/25 15:00 Prothrombin Time 12.0 sec (9.3-11.8) H Prothrombin Time INR 1.15 (0.9-1.15) Urinalysis Test 02/04/25 04:38 Urine Color Light-yellow (Yellow) Urine Clarity Clear (Clear) Urine pH 6.0 (5.0-9.0) Urine Specific [place] 1.024 (1.001-1.035) Urine Protein Trace (Negative) H Urine Ketones Negative (Negative) Urine Blood Negative /uL (Negative) Urine Nitrite Negative (Negative) Urine Bilirubin Negative (Negative) Urine Urobilinogen Normal mg/dL (Negative) Urine Leukocyte Esterase Negative /uL (Negative) Urine RBC 1 /hpf (0 - 3) Urine Microscopic WBC 1 /HPF (0-3) Urine Squamous Epithelial Cells Few /hpf (<5) Urine Bacteria None seen /hpf (None Seen) Urine Glucose Normal mg/dL (Normal) Labs and/or images reviewed: Labs reviewed by me, Image(s) reviewed by me Assessment/Plan Assessment/Plan Intractable abdominal and lt flank pain pain with nausea and vomiting, GI consult for Dr. 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 Golden Marte recommended follow up at higher level of care as an outpatient Possible Cholecystitis: HIDA scan, consult for Dr Desai pending Hypertension CHF AFib Time spent 50 minutes Advanced care planning time 20 minutes Patient is full code Plan discussed with: Patient My Orders Orders - VAUGHN WILSON MD Procedure Category Date Status Time Nm Hida Scan NM 02/06/25 Logged 11:49 * Gi Dvh Library Historian CONS 02/06/25 Transmitted 12:36 * Surgical Consult CONS 02/07/25 Transmitted 11:04 Date of Service: Feb 07, 2025 Billing Provider: VAUGHN WILSON MD Common Visit Codes: [id number] INP/OBS CARE(HIGH) VAUGHN WILSON MD Feb 07, 2025 11:09
--- NOTE | 2025-02-07 11:20 | DVHINCON2 ---
Consultation - Surgical Date Seen: Feb 07, 2025 Referring Physician Referring Physician Dr. Mary Reason for Consultation abd pain History of Present Illness History of Present Illness 74M w multiple comorbidities, known distal pancreatic cystic lesion who was admi tted w epigastric abd pain radiating to the left. He was evaluated by GI who recommend outpt f/u and appropriate interval survillance of pancreatic tail lesion suggesting pt would benefit from being followed by GI vmware consultant at [facility] as outpt. The pain has now nearly resolved and he is no longer experiencing n/v. He is tolerating PO and has had no fevers. Past Medical/Surgical History Past Medical/Surgical History CHF, pancreatic tail cystic lesion, blindness, age related fragility, afib on chemical anticoag therapy, medication coaguloapthy, cholelithiasis Surg Hx: hernia repair Family and Social History Family and Social History denies drugs etoh or illicit drugs Allergies and medications Allergies: Coded Allergies: Penicillins (Verified Allergy, Unknown, 11/17/24) Home Meds Reported Medications Apixaban Base (ELIQUIS) 5 Mg Tab, 1 TAB PO DAILY 11/17/24 Dorzolamide-Timolol (Dorzolamide Hcl/Timolol M) 1 Ml Julia, 1 DROP EACHEYE DAILY 11/17/24 Bimatoprost (Lumigan) 0.01 % Julia, 1 DROP EACHEYE DAILY 11/17/24 Brimonidine Tartrate (Brimonidine Tartrate) 0.2 % Julia, 1 DROP EACHEYE DAILY 11/17/24 Atorvastatin Calcium (ATORVASTATIN CALCIUM) 40 Mg Tab, 1 TAB PO 11/17/24 Empagliflozin (Jardiance) 10 Mg Tab, 1 TAB PO QAM 11/17/24 Aspirin (Aspirin Low Dose) 81 Mg Tab, 1 TAB PO DAILY 11/17/24 Donepezil Hydrochloride (DONEPEZIL HCL) 10 Mg Tab, 1 TAB PO BID 11/17/24 Review of systems Review of Systems: HEENT:Normal, CVS:Normal, RESPIRATORY:Normal, GI:Abnormal (abd pain, nausea, emesis), :Normal, MSK:Abnormal, NEURO:Normal Examination Vital signs Vital Signs Date Time Temp Pulse Resp B/P (MAP) Pulse Ox O2 Delivery O2 Flow Rate FiO2 02/07/25 08:53 97.9 79 20 141/91 (108) 93 97.9 02/07/25 08:00 Room Air* 0 21 Laboratory Labs Test 02/06/25 15:00 02/05/25 06:40 02/05/25 05:39 02/04/25 07:25 Range/Units Prothrombin Time 12.0 H 9.3-11.8 sec Prothrombin Time INR 1.15 0.9-1.15 POC Glucose 102 70-106 mg/dl White Blood Count 7.1 4.4-10.8 10^3/uL Red Blood Count 5.31 4.5-5.90 10^6/uL Hemoglobin 14.4 13.5-17.5 g/dL Hematocrit 43.2 41.0-53.0 % Mean Corpuscular Volume 81.4 80.0-100.0 fL Mean Corpuscular Hemoglobin 27.2 L 28.0-32.0 pg Mean Corpuscular Hemoglobin Concent 33.4 32.0-36.0 g/dL Red Cell Distribution Width 14.0 11.8-14.3 % Platelet Count 122 L 140-450 10^3/uL Mean Platelet Volume 9.8 6.9-10.8 fL Neutrophils (%) (Auto) 65.8 37.0-80.0 % Lymphocytes (%) (Auto) 20.7 10.0-50.0 % Monocytes (%) (Auto) 12.2 H 0.0-12.0 % Eosinophils (%) (Auto) 0.7 0.0-7.0 % Basophils (%) (Auto) 0.6 0.0-2.0 % Neutrophils # (Auto) 4.7 1.6-8.6 10 ^3/uL Lymphocytes # (Auto) 1.5 0.4-5.4 10 ^3/uL Monocytes # (Auto) 0.9 0-1.3 10 ^3/uL Eosinophils # (Auto) 0.1 0-0.8 10 ^3/uL Basophils # (Auto) 0 0-0.2 10 ^3/uL Nucleated Red Blood Cells 0.1 % Sodium Level 143 136-145 mmol/L Potassium Level 3.7 3.5-5.1 mmol/L Chloride Level 109 H 98-107 mmol/L Carbon Dioxide Level 28 20-31 mmol/L Anion Gap 6 5-15 Blood Urea Nitrogen 8 L 9-23 mg/dL Creatinine 1.05 0.700-1.30 mg/dL Glomerular Filtration Rate Calc 75 >90 mL/min BUN/Creatinine Ratio 7.6 L 10.0-20.0 Serum Glucose 107 H 74-106 mg/dL Calcium Level 9.5 8.7-10.4 mg/dL Total Bilirubin 1.2 H 0.2-1.0 mg/dL Aspartate Amino Transferase (AST) 19 13-40 U/L Alanine Aminotransferase (ALT) < 9 7-40 U/L Alkaline Phosphatase 55 46-116 U/L Total Protein 6.5 5.7-8.2 g/dL Albumin 4.0 3.2-4.8 g/dL Hepatitis B Surface Antigen Negative Negative Test 02/04/25 06:02 02/04/25 04:38 02/04/25 03:09 Range/Units Troponin I High Sensitivity 15 </=54 ng/L Urine Color Light-yellow Yellow Urine Clarity Clear Clear Urine pH 6.0 5.0-9.0 Urine Specific [place] 1.024 1.001-1.035 Urine Protein Trace H Negative Urine Ketones Negative Negative Urine Blood Negative Negative /uL Urine Nitrite Negative Negative Urine Bilirubin Negative Negative Urine Urobilinogen Normal Negative mg/dL Urine Leukocyte Esterase Negative Negative /uL Urine RBC 1 0 - 3 /hpf Urine Microscopic WBC 1 0-3 /HPF Urine Squamous Epithelial Cells Few <5 /hpf Urine Bacteria None seen None Seen /hpf Urine Glucose Normal Normal mg/dL Hemoglobin A1c 5.6 <5.7 % A1C Amylase Level 79 30-118 U/L Lipase 34 12-53 U/L Examination: GENERAL:Normal (NAD, wd/wn), HEENT:Normal (anicteric, eomi), NECK :Normal (supple, trachea midline), LUNGS:Normal (ctab, no w/r/r), CVS:Normal (rrr, +pulses b/l), ABDOMEN:Normal (s/nd/nt, no rebound/guarding), MSK:Normal, SKIN:Normal (no jaundice, c/d/i), NEURO:Normal Problem List/Assessment/Plan Problems: (1) Intractable abdominal pain (2) Ascites (3) Cholecystitis (4) Cirrhosis (5) Pancreatic cyst (6) Abdominal pain Assessment and Plan 74M w multiple comorbidities, afib on eliquis, known pancreatic tail lesion thad picious for malignancy, cholelithiasis who presented initially w epigastric abd pain radiating to the L and nausea and nb/nb emesis which has since resolved. He underwent GI eval, and imaging reproduced stable known pancreatic tail lesion compared studies from current admission to previous studies, GB related findings unchanged and stable complaints at admission not suggestive of cholecystitis WBC, LFTs, Bili alll wnl; afebrile since admission no h/o suggestive of symptomatic cholelithiasis or biliary colic abd exam benign no indications for urgent surgical intervention pt is currently tolerating PO and has no abdominal related complaints ok to continue PO diet and d/c from surgical stand point with outpt GI following for pancreatic lesion surveillance no indications for cholecystectomy during admission, surgery will sign off Plan discussed with Plan discussed with: Patient Visit Coding Surgery Date of Service if different f: Feb 07, 2025 Billing Provider: HUAN SHEPHERD MD Surgery Visit Codes: [id number] - INP CONSULT <55 MIN HUAN SHEPHERD MD Feb 07, 2025 11:20
--- NOTE | 2025-02-07 14:16 | DVHINCON2 ---
Date of service: Feb 07, 2025 Family History: Alcoholism MOTHER FH: dementia MOTHER Hypertension MOTHER Allergies: Coded Allergies: Penicillins (Verified Allergy, Unknown, 11/17/24) Home Meds Reported Medications Apixaban Base (ELIQUIS) 5 Mg Tab, 1 TAB PO DAILY 11/17/24 Dorzolamide-Timolol (Dorzolamide Hcl/Timolol M) 1 Ml Julia, 1 DROP EACHEYE DAILY 11/17/24 Bimatoprost (Lumigan) 0.01 % Julia, 1 DROP EACHEYE DAILY 11/17/24 Brimonidine Tartrate (Brimonidine Tartrate) 0.2 % Julia, 1 DROP EACHEYE DAILY 11/17/24 Atorvastatin Calcium (ATORVASTATIN CALCIUM) 40 Mg Tab, 1 TAB PO 11/17/24 Empagliflozin (Jardiance) 10 Mg Tab, 1 TAB PO QAM 11/17/24 Aspirin (Aspirin Low Dose) 81 Mg Tab, 1 TAB PO DAILY 11/17/24 Donepezil Hydrochloride (DONEPEZIL HCL) 10 Mg Tab, 1 TAB PO BID 11/17/24 Vital Signs Vital Signs Date Time Temp Pulse Resp B/P (MAP) Pulse Ox O2 Delivery O2 Flow Rate FiO2 02/07/25 12:50 97.7 66 22 126/66 (86) 93 97.7 02/07/25 08:00 Room Air* 0 21 Labs/Diagnostic Data Labs Test 02/06/25 15:00 02/05/25 06:40 02/05/25 05:39 02/04/25 07:25 Range/Units Prothrombin Time 12.0 H 9.3-11.8 sec Prothrombin Time INR 1.15 0.9-1.15 POC Glucose 102 70-106 mg/dl White Blood Count 7.1 4.4-10.8 10^3/uL Red Blood Count 5.31 4.5-5.90 10^6/uL Hemoglobin 14.4 13.5-17.5 g/dL Hematocrit 43.2 41.0-53.0 % Mean Corpuscular Volume 81.4 80.0-100.0 fL Mean Corpuscular Hemoglobin 27.2 L 28.0-32.0 pg Mean Corpuscular Hemoglobin Concent 33.4 32.0-36.0 g/dL Red Cell Distribution Width 14.0 11.8-14.3 % Platelet Count 122 L 140-450 10^3/uL Mean Platelet Volume 9.8 6.9-10.8 fL Neutrophils (%) (Auto) 65.8 37.0-80.0 % Lymphocytes (%) (Auto) 20.7 10.0-50.0 % Monocytes (%) (Auto) 12.2 H 0.0-12.0 % Eosinophils (%) (Auto) 0.7 0.0-7.0 % Basophils (%) (Auto) 0.6 0.0-2.0 % Neutrophils # (Auto) 4.7 1.6-8.6 10 ^3/uL Lymphocytes # (Auto) 1.5 0.4-5.4 10 ^3/uL Monocytes # (Auto) 0.9 0-1.3 10 ^3/uL Eosinophils # (Auto) 0.1 0-0.8 10 ^3/uL Basophils # (Auto) 0 0-0.2 10 ^3/uL Nucleated Red Blood Cells 0.1 % Sodium Level 143 136-145 mmol/L Potassium Level 3.7 3.5-5.1 mmol/L Chloride Level 109 H 98-107 mmol/L Carbon Dioxide Level 28 20-31 mmol/L Anion Gap 6 5-15 Blood Urea Nitrogen 8 L 9-23 mg/dL Creatinine 1.05 0.700-1.30 mg/dL Glomerular Filtration Rate Calc 75 >90 mL/min BUN/Creatinine Ratio 7.6 L 10.0-20.0 Serum Glucose 107 H 74-106 mg/dL Calcium Level 9.5 8.7-10.4 mg/dL Total Bilirubin 1.2 H 0.2-1.0 mg/dL Aspartate Amino Transferase (AST) 19 13-40 U/L Alanine Aminotransferase (ALT) < 9 7-40 U/L Alkaline Phosphatase 55 46-116 U/L Total Protein 6.5 5.7-8.2 g/dL Albumin 4.0 3.2-4.8 g/dL Hepatitis B Surface Antigen Negative Negative Test 02/04/25 06:02 02/04/25 04:38 02/04/25 03:09 Range/Units Troponin I High Sensitivity 15 </=54 ng/L Urine Color Light-yellow Yellow Urine Clarity Clear Clear Urine pH 6.0 5.0-9.0 Urine Specific [place] 1.024 1.001-1.035 Urine Protein Trace H Negative Urine Ketones Negative Negative Urine Blood Negative Negative /uL Urine Nitrite Negative Negative Urine Bilirubin Negative Negative Urine Urobilinogen Normal Negative mg/dL Urine Leukocyte Esterase Negative Negative /uL Urine RBC 1 0 - 3 /hpf Urine Microscopic WBC 1 0-3 /HPF Urine Squamous Epithelial Cells Few <5 /hpf Urine Bacteria None seen None Seen /hpf Urine Glucose Normal Normal mg/dL Hemoglobin A1c 5.6 <5.7 % A1C Amylase Level 79 30-118 U/L Lipase 34 12-53 U/L Assessment 74 year old with abdominal pain, most likely due to his cholelithiasis, also has two cystic lesions in his pancreas. will await HIDA scan . Most likely needs cholecystectomy Plan discussed with: Patient TEVIN العلي MD Feb 07, 2025 14:16
[2025-02-07] MEDS ORDERED: SODIUM CHLORIDE LOCK 10 ML ONE (16:03)
[2025-02-07] MEDS: LIDOCAINE VISCOUS 2% 15ML UD ONE (16:34)
[2025-02-07] MEDS: diphenhdrAMINE HCL 50 MG/1 ML VL ONE (16:36)
[2025-02-07] MEDS: fentaNYL CITRATE 100 MCG/2 ML VL ONE (16:36)
[2025-02-07] MEDS: MIDAZOLAM HCL 5 MG/ML-1ML VIAL ONE (16:36)
--- NOTE | 2025-02-07 16:51 | DVHOP2 ---
Operative Report DATE OF OPERATION: 02/07/25 PROCEDURE: Upper Endoscopy with biopsy PREOPERATIVE INDICATION: The patient is a 74 -year-old male undergoing endoscopy for nausea vomiting and abdominal pain POSTOPERATIVE DIAGNOSES: 1. 3-4 cm sliding-type hiatal hernia with short-segment Barretts extending up to 2 cm above the Z-line from which biopsies were obtained 2. Perp-xi-nghmdfip gastritis with some hyperemia erythema and flecks of old blood 3. Lioyytjk-qn-[id number] duodenitis with multiple duodenal ulcers in the duodenal bulb and postbulbar area and some superficial biopsies were obtained 4. Otherwise normal examination up to the 2nd and 3rd part of the duodenal with good bile drainage and no active bleeding PROCEDURE PERFORMED BY: Christian Marte GI NURSE: Nj SCOPE: Olympus videoendoscope. ASA CLASS: 3. PREOPERATIVE MEDICATIONS: Versed 3 minute mg, Fentanyl 100 mcg, Benadryl 50 mg I administered moderate sedation throughout this _7_ minutes procedure. An independent trained observer pushed medications at my direction, and monitored the patient's level of consciousness and physiological status throughout. PROCEDURE IN DETAIL: After obtaining an informed consent, the patient was placed on left lateral decubitus position. The patient was then sedated with the above medications. A bite block was placed between his teeth. The endoscope was then passed through the oropharynx, into the esophagus, and through the stomach and pylorus up to the second and third part of the duodenum. The endoscope was then withdrawn. The 2nd and 3rd part of the duodenal and the duodenal bulb showed [id number] duodenitis with multiple superficial duodenal ulcers Superficial duodenal biopsies were obtained. The pre-pyloric area antrum and body showed mild gastritis with some flecks of old blood On retroflexion the fundus and cardia were normal. Gastric biopsies were obtained. The endoscope was then withdrawn into distal esophagus Patient had a 3-4 cm sliding-type hiatal hernia with short-segment Barretts ex tending into the distal 2 cm of the esophagus from which biopsies were obtained The remaining distal and proximal esophagus and oropharynx were unremarkable The patient tolerated the procedure well without difficulty. COMPLICATIONS : None SPECIMENS: Duodenal biopsies Gastric biopsies GE junction biopsies DISPOSITION: Transfer back to the floor Stable PLAN: 1. Await for biopsy result 2. Will place pt on Protonix 40 mg bid IV 3. Carafate suspension 1 g p.o. 4 times a day 4. Start full liquid diet advance to soft mechanical 5. DC aspirin and hold Plavix for 24-48 hours CHRISTIAN MARTE MD Feb 07, 2025 16:51
[2025-02-07] MEDS: SUCRALFATE 1 GM/10 ML ORAL SUSP PO SCH (17:00)
--- NOTE | 2025-02-07 18:52 | DVH ---
NUCLEAR MEDICINE HEPATOBILIARY SCAN REASON FOR EXAM: Right upper quadrant pain RADIOPHARMACEUTICAL: 4.3 mCi Tc-99m Choletec, IV AUTHORIZED USER: Fili Gale M.D. TECHNIQUE: Following the intravenous administration of 4.3 mCi Tc-99m Choletec, sequential images w ere obtained over the abdomen for sixty minutes. FINDINGS: There is prompt, uniform accumulation of tracer by the liver. There is normal filling of t he intrahepatic ducts and the common bile duct. There is normal excretion of tracer into the duodenu m. The gallbladder is not identified despite 4 hour delayed images in multiple projections. IMPRESSION: Nonvisualization of the gallbladder. This may represent acute cholecystitis in the correct clinical setting. Correlate clinically. Consider right upper quadrant ultrasound if clinically indicated.
[2025-02-07] MEDS: PANTOPRAZOLE 40 MG TAB PO SCH (20:00)
[2025-02-08] VITALS (8 sets, daily range): BP systolic 117–142; BP diastolic 64–84; PULSE 75–78; RESP 18–20; TEMP 97.3–98.4; O2SAT 95–96
--- NOTE | 2025-02-08 10:42 | DVHPN2 ---
Reviewed: Care Plan, H&P, Labs, Medications, Previous Orders, Radiology Changes from previous H/P or p: No Changes Gastrointestinal: Nausea, Vomiting, Abdominal Pain, Other (Left flank pain) Musculoskeletal: other (Left flank pain) Objective Vitals Vital Signs Date Time Temp Pulse Resp B/P (MAP) Pulse Ox O2 Delivery O2 Flow Rate FiO2 02/08/25 09:00 97.8 76 18 132/64 (86) 96 97.8 02/08/25 08:00 Room Air* 0 21 Intake/Output Intake and Output 02/08/25 07:00 Intake Total 600 ml Output Total 1950 ml Balance -1350 ml Intake Oral 600 ml Output Urine Total 1950 ml # Bowel Movements 1 General Appearance: Alert, Oriented X3, Cooperative, No acute distress, mild distress, moderate distress, severe distress, Other Lungs: Clear to auscultation, Normal air movement, Other Cardiovascular: Regular rate, Normal S1, Normal S2, No murmurs, Gallops, Rubs, Other Abdomen: Normal bowel sounds, Soft, No tenderness, No hepatospenomegaly, No masses, Other Medications Current Medications Medications Dose Ordered Sig/Nita Route Start Time Stop Time Status Last Admin Dose Admin Acetaminophen/ Hydrocodone Bitart 1 tab Q4HP PRN PO 02/04/25 07:45 02/07/25 07:59 1 TAB Ondansetron HCl 4 mg Q4HP PRN IV 02/04/25 07:45 Enoxaparin Sodium 40 mg DAILY SC 02/04/25 10:00 02/08/25 09:02 40 MG Acetaminophen 650 mg Q6HP PRN PO 02/04/25 07:45 Morphine Sulfate 2 mg Q4HPRN PRN IV 02/04/25 07:45 Nitroglycerin 0.4 mg Q5MINP PRN SL 02/04/25 07:45 Morphine Sulfate 2 mg Q30M PRN IV 02/04/25 07:45 Empaglifozin 10 mg QAM PO 02/05/25 07:00 02/08/25 05:21 10 MG Donepezil HCl 10 mg BID PO 02/04/25 10:00 02/07/25 21:25 10 MG Atorvastatin Calcium 40 mg HS PO 02/04/25 22:00 02/07/25 21:25 40 MG Hydralazine HCl 10 mg Q6HP PRN IV 02/04/25 08:00 02/07/25 05:04 10 MG Pantoprazole Sodium 40 mg BID@0600,1700 PO 02/07/25 17:00 02/08/25 05:21 40 MG Sucralfate 1 gm QID@0600,1130,1700,2200 PO 02/07/25 17:00 02/08/25 05:21 1 GM Laboratory Results Laboratory Tests 02/05/25 05:39 Urinalysis Test 02/04/25 04:38 Urine Color Light-yellow (Yellow) Urine Clarity Clear (Clear) Urine pH 6.0 (5.0-9.0) Urine Specific [place] 1.024 (1.001-1.035) Urine Protein Trace (Negative) H Urine Ketones Negative (Negative) Urine Blood Negative /uL (Negative) Urine Nitrite Negative (Negative) Urine Bilirubin Negative (Negative) Urine Urobilinogen Normal mg/dL (Negative) Urine Leukocyte Esterase Negative /uL (Negative) Urine RBC 1 /hpf (0 - 3) Urine Microscopic WBC 1 /HPF (0-3) Urine Squamous Epithelial Cells Few /hpf (<5) Urine Bacteria None seen /hpf (None Seen) Urine Glucose Normal mg/dL (Normal) Labs and/or images reviewed: Labs reviewed by me, Image(s) reviewed by me Assessment/Plan Assessment/Plan Intractable abdominal and lt flank pain pain with nausea and vomiting, GI consult for Dr. 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 Golden Marte recommended follow up at higher level of care as an outpatient HIDA scan positive for acute cholecystitis Mild gastritis and duodenitis by EGD by Dr. Golden Marte Hypertension CHF AFib Time spent 50 minutes Advanced care planning time 20 minutes Patient is full code Plan discussed with: Patient My Orders Orders - VAUGHN WILSON MD Procedure Category Date Status Time * Surgical Consult CONS 02/07/25 Transmitted 11:04 Date of Service: Feb 08, 2025 Billing Provider: VAUGHN WILSON MD Common Visit Codes: [id number] INP/OBS CARE(HIGH) VAUGHN WILSON MD Feb 08, 2025 10:42
--- NOTE | 2025-02-08 13:57 | DVHPN2 ---
Subjective Patient admitted with severe left-sided abdominal pain. Radiating to the back with nausea and vomiting Patient denies nausea and vomiting at this time. No melena or red blood in stool. Denies hematemesis Status post EGD in [place] about five months ago, unsure about results Status post EGD yesterdayDATE OF OPERATION: 02/07/25 PROCEDURE: Upper Endoscopy with biopsy PREOPERATIVE INDICATION: The patient is a 74 -year-old male undergoing endoscopy for nausea vomiting and abdominal pain POSTOPERATIVE DIAGNOSES: 1. 3-4 cm sliding-type hiatal hernia with short-segment Barretts extending up to 2 cm above the Z-line from which biopsies were obtained 2. [id number] gastritis with some hyperemia erythema and flecks of old blood 3. [id number] duodenitis with multiple duodenal ulcers in the duodenal bulb and postbulbar area and some superficial biopsies were obtained 4. Otherwise normal examination up to the 2nd and 3rd part of the duodenal with good bile drainage and no active bleeding Reviewed: Care Plan, H&P, Labs, Medications, Previous Orders, Radiology Changes from previous H/P or p: No Changes Gastrointestinal: Nausea, Vomiting, Abdominal Pain, Other (Left flank pain) Musculoskeletal: other (Left flank pain) Objective Vitals Vital Signs Date Time Temp Pulse Resp B/P (MAP) Pulse Ox O2 Delivery O2 Flow Rate FiO2 02/08/25 13:00 98.1 78 18 132/76 (94) 95 98.1 02/08/25 08:00 Room Air* 0 21 Intake/Output Intake and Output 02/08/25 07:00 Intake Total 600 ml Output Total 1950 ml Balance -1350 ml Intake Oral 600 ml Output Urine Total 1950 ml # Bowel Movements 1 General Appearance: Alert, Oriented X3, No acute distress Lungs: Clear to auscultation Cardiovascular: Regular rate Abdomen: Normal bowel sounds, Soft Medications Current Medications Medications Dose Ordered Sig/Nita Route Start Time Stop Time Status Last Admin Dose Admin Acetaminophen/ Hydrocodone Bitart 1 tab Q4HP PRN PO 02/04/25 07:45 02/07/25 07:59 1 TAB Ondansetron HCl 4 mg Q4HP PRN IV 02/04/25 07:45 Enoxaparin Sodium 40 mg DAILY SC 02/04/25 10:00 02/08/25 09:02 40 MG Acetaminophen 650 mg Q6HP PRN PO 02/04/25 07:45 Morphine Sulfate 2 mg Q4HPRN PRN IV 02/04/25 07:45 Nitroglycerin 0.4 mg Q5MINP PRN SL 02/04/25 07:45 Morphine Sulfate 2 mg Q30M PRN IV 02/04/25 07:45 Empaglifozin 10 mg QAM PO 02/05/25 07:00 02/08/25 05:21 10 MG Donepezil HCl 10 mg BID PO 02/04/25 10:00 02/07/25 21:25 10 MG Atorvastatin Calcium 40 mg HS PO 02/04/25 22:00 02/07/25 21:25 40 MG Hydralazine HCl 10 mg Q6HP PRN IV 02/04/25 08:00 02/07/25 05:04 10 MG Pantoprazole Sodium 40 mg BID@0600,1700 PO 02/07/25 17:00 02/08/25 05:21 40 MG Sucralfate 1 gm QID@0600,1130,1700,2200 PO 02/07/25 17:00 02/08/25 11:45 1 GM Sodium Chloride 1,000 ml @ 125 mls/hr Q8H IV 02/08/25 10:45 Laboratory Results Laboratory Tests 02/05/25 05:39 Urinalysis Test 02/04/25 04:38 Urine Color Light-yellow (Yellow) Urine Clarity Clear (Clear) Urine pH 6.0 (5.0-9.0) Urine Specific [place] 1.024 (1.001-1.035) Urine Protein Trace (Negative) H Urine Ketones Negative (Negative) Urine Blood Negative /uL (Negative) Urine Nitrite Negative (Negative) Urine Bilirubin Negative (Negative) Urine Urobilinogen Normal mg/dL (Negative) Urine Leukocyte Esterase Negative /uL (Negative) Urine RBC 1 /hpf (0 - 3) Urine Microscopic WBC 1 /HPF (0-3) Urine Squamous Epithelial Cells Few /hpf (<5) Urine Bacteria None seen /hpf (None Seen) Urine Glucose Normal mg/dL (Normal) Labs and/or images reviewed: Labs reviewed by me, Image(s) reviewed by me Assessment/Plan Assessment/Plan Abdominal pain Nausea and vomiting improved Cholelithiasis Cholecystitis Pancreatic cyst Plan Discussed with Dr. Marte Recommend surgical consult Recommend Cardiology consult for clearance for further procedures as needed, due to patient is playing cardiac arrhythmia during endoscopy procedure Plan discussed with patient and RN Plan discussed with: Patient, Other (RN) My Orders Orders - GINNY WILSON Procedure Category Date Status Time * Cardiology Consult CONS 02/08/25 Transmitted 13:16 Date of Service: Feb 08, 2025 Billing Provider: GINNY WILSON Common Visit Codes: [id number] INP/OBS CARE(HIGH) GINNY WILSON Feb 08, 2025 13:57
[2025-02-08] MEDS: SODIUM CHLORIDE 0.9% 1,000 ML IV SCH (14:42)
--- NOTE | 2025-02-08 15:08 | DVHPN2 ---
Progress Note Date Seen: Feb 08, 2025 Medical Necessity Reason Pt with a Central, PICC or Fol: No Objective vital signs Vital Sign Date Time Temp Pulse Resp B/P (MAP) Pulse Ox O2 Delivery O2 Flow Rate FiO2 02/08/25 13:00 98.1 78 18 132/76 (94) 95 98.1 02/08/25 08:00 Room Air* 0 21 Total Intake and Output 02/07/25 02/07/25 02/08/25 15:00 23:00 07:00 Intake Total 600 ml Output Total 1200 ml 750 ml Balance -1200 ml -150 ml medications Current Medications Medications Dose Ordered Sig/Nita Route Start Time Stop Time Status Last Admin Dose Admin Acetaminophen/ Hydrocodone Bitart 1 tab Q4HP PRN PO 02/04/25 07:45 02/07/25 07:59 1 TAB Ondansetron HCl 4 mg Q4HP PRN IV 02/04/25 07:45 Enoxaparin Sodium 40 mg DAILY SC 02/04/25 10:00 02/08/25 09:02 40 MG Acetaminophen 650 mg Q6HP PRN PO 02/04/25 07:45 Morphine Sulfate 2 mg Q4HPRN PRN IV 02/04/25 07:45 Nitroglycerin 0.4 mg Q5MINP PRN SL 02/04/25 07:45 Morphine Sulfate 2 mg Q30M PRN IV 02/04/25 07:45 Empaglifozin 10 mg QAM PO 02/05/25 07:00 02/08/25 05:21 10 MG Donepezil HCl 10 mg BID PO 02/04/25 10:00 02/07/25 21:25 10 MG Atorvastatin Calcium 40 mg HS PO 02/04/25 22:00 02/07/25 21:25 40 MG Hydralazine HCl 10 mg Q6HP PRN IV 02/04/25 08:00 02/07/25 05:04 10 MG Pantoprazole Sodium 40 mg BID@0600,1700 PO 02/07/25 17:00 02/08/25 05:21 40 MG Sucralfate 1 gm QID@0600,1130,1700,2200 PO 02/07/25 17:00 02/08/25 11:45 1 GM Sodium Chloride 1,000 ml @ 125 mls/hr Q8H IV 02/08/25 10:45 laboratory and microbiology Laboratory Tests 02/05/25 05:39 Test 02/05/25 05:39 Range/Units Serum Glucose 107 H 74-106 mg/dL Problem List/Assessment/Plan Problem List/Assessment/Plan 02/08/25 hida scan indicates GB malfunction, cholecystectomy after cardiac clearance, laparoscopic possibly open cholecystectomy, risks and complications explained. Plan discussed with: Patient TEVIN العلي MD Feb 08, 2025 15:08
--- NOTE | 2025-02-08 16:12 | DVHCONRES ---
Date Seen: Feb 08, 2025 Resident Creating Document: MIKY CHATTERJEE RESIDENT Referring Physician Dr. Gonzalez History of Present Illness Patient is a 74-year-old male with past medical history of type 2 diabetes, heart failure with reduced ejection fraction 34%, rheumatic fever at age 14, hypertension, blindness secondary to glaucoma, atrial fibrillation, pancreatic cyst/neoplasm?, possible dementia? Who came in due to intractable vomiting. According to the patient, he was watching TV when all of a sudden he started feeling short of breath, he subsequently went to the bathroom and had multiple episodes of projectile vomiting. Patient is a poor historian an accurate history could not be obtained, attempts were made to call patient's next of kin (son) and another listed contact, however was unreachable. On review of systems patient denies any active ongoing concerns. Per patient he had a stress test in 2002 which was normal, denies ever experiencing CVA or TIA. EKG showed atrial flutter with predominant 3 ratio 1 AV block, echocardiogram from November 2024 s howed moderately dilated left ventricle with ejection fraction 34%, moderately dilated right ventricle and left atrium. Past Medical History type 2 diabetes, heart failure with reduced ejection fraction 34%, rheumatic fever at age 14, hypertension, blindness secondary to glaucoma, atrial fibrillation, pancreatic cyst/neoplasm?, possible dementia? Past Surgical History Eye surgery, hernia repair Family History: Alcoholism MOTHER FH: dementia MOTHER Hypertension MOTHER Social History Smoking: Quit 1 month ago, prior to that was smoking 2-4 cigarettes per day for the last 6/10 years Alcohol: Denies Drugs: Uses marijuana daily. Allergies: Coded Allergies: Penicillins (Verified Allergy, Unknown, 11/17/24) Home Meds Reported Medications Apixaban Base (ELIQUIS) 5 Mg Tab, 1 TAB PO DAILY 11/17/24 Dorzolamide-Timolol (Dorzolamide Hcl/Timolol M) 1 Ml Julia, 1 DROP EACHEYE DAILY 11/17/24 Bimatoprost (Lumigan) 0.01 % Julia, 1 DROP EACHEYE DAILY 11/17/24 Brimonidine Tartrate (Brimonidine Tartrate) 0.2 % Julia, 1 DROP EACHEYE DAILY 11/17/24 Atorvastatin Calcium (ATORVASTATIN CALCIUM) 40 Mg Tab, 1 TAB PO 11/17/24 Empagliflozin (Jardiance) 10 Mg Tab, 1 TAB PO QAM 11/17/24 Aspirin (Aspirin Low Dose) 81 Mg Tab, 1 TAB PO DAILY 11/17/24 Donepezil Hydrochloride (DONEPEZIL HCL) 10 Mg Tab, 1 TAB PO BID 11/17/24 Current Medications Current Medications Medications (Trade) Dose Ordered Sig/Nita Route PRN Reason Start Time Stop Time Status Last Admin Pantoprazole Sodium (Protonix Tablet) 40 mg BID@0600,1700 PO 02/07/25 17:00 02/08/25 05:21 Sucralfate (Carafate Susp) 1 gm QID@0600,1130,1700,2200 PO 02/07/25 17:00 02/08/25 11:45 Sodium Chloride 1,000 ml @ 125 mls/hr Q8H IV 02/08/25 10:45 Review of Systems Patient seen and examined at bedside. Patient is . However alert and oriented to place and person but not to time Eyes: No Pain, No Vision change, No Conjunctivae inflammation, No Eyelid inflammation, No Other, No Redness ENT: No Ear pain, No Ear discharge, No Nose pain, No Nose discharge, No Nose congestion, No Mouth pain, No Mouth swelling, No Throat pain, No Throat swelli ng, No Other Cardiovascular: No Chest Pain, No Palpitations, No Orthopnea, No Paroxysmal No Dyspnea, No Edema, No Lt Headedness, No Other Respiratory: No Cough, No Dry, No Shortness of breath, No SOB with exertion, trace expiratory Wheezing, No Hemoptysis, No Pleuritic Pain, No Sputum, No Other Gastrointestinal: No Nausea, No Vomiting, No Abdominal Pain, No Diarrhea, No Constipation, No Melena, No Hematochezia, No Other Genitourinary: No Dysuria, No Frequency, No Incontinence, No Hematuria, No Retention, No Other Musculoskeletal: No other, No neck pain, No shoulder pain, No arm pain, No back pain, No hand pain, No leg pain, No foot pain Skin: No Rash, No Lesions, No Jaundice, No Bruising, No Other Vital Signs Vital Signs Date Time Temp Pulse Resp B/P (MAP) Pulse Ox O2 Delivery O2 Flow Rate FiO2 02/08/25 13:00 98.1 78 18 132/76 (94) 95 98.1 02/08/25 08:00 Room Air* 0 21 Physical Exam General Appearance: Cooperative. Well developed. Well nourished. NAD Head Exam: Normal inspection Neck Exam: Normal inspection. Non-tender. Normal alignment Pulmonary/Respiratory: Chest non-tender. Clear bilateral breath sounds, no crackles, trace expiratory wheezing. Cardiovascular/Chest: Regular rate and rhythm. No murmurs. No JVD. Ankle Exam: Negative ankle edema Lower extremities: Negative lower extremity edema Neuro/Mental Status: A&O x2. Coherent. Skin Exam: Normal inspection. Normal color. Warm. Dry Labs/Diagnostic Data Labs Test 02/07/25 17:06 02/06/25 15:00 02/05/25 05:39 02/04/25 07:25 Range/Units POC Glucose 83 70-106 mg/dl Prothrombin Time 12.0 H 9.3-11.8 sec Prothrombin Time INR 1.15 0.9-1.15 White Blood Count 7.1 4.4-10.8 10^3/uL Red Blood Count 5.31 4.5-5.90 10^6/uL Hemoglobin 14.4 13.5-17.5 g/dL Hematocrit 43.2 41.0-53.0 % Mean Corpuscular Volume 81.4 80.0-100.0 fL Mean Corpuscular Hemoglobin 27.2 L 28.0-32.0 pg Mean Corpuscular Hemoglobin Concent 33.4 32.0-36.0 g/dL Red Cell Distribution Width 14.0 11.8-14.3 % Platelet Count 122 L 140-450 10^3/uL Mean Platelet Volume 9.8 6.9-10.8 fL Neutrophils (%) (Auto) 65.8 37.0-80.0 % Lymphocytes (%) (Auto) 20.7 10.0-50.0 % Monocytes (%) (Auto) 12.2 H 0.0-12.0 % Eosinophils (%) (Auto) 0.7 0.0-7.0 % Basophils (%) (Auto) 0.6 0.0-2.0 % Neutrophils # (Auto) 4.7 1.6-8.6 10 ^3/uL Lymphocytes # (Auto) 1.5 0.4-5.4 10 ^3/uL Monocytes # (Auto) 0.9 0-1.3 10 ^3/uL Eosinophils # (Auto) 0.1 0-0.8 10 ^3/uL Basophils # (Auto) 0 0-0.2 10 ^3/uL Nucleated Red Blood Cells 0.1 % Sodium Level 143 136-145 mmol/L Potassium Level 3.7 3.5-5.1 mmol/L Chloride Level 109 H 98-107 mmol/L Carbon Dioxide Level 28 20-31 mmol/L Anion Gap 6 5-15 Blood Urea Nitrogen 8 L 9-23 mg/dL Creatinine 1.05 0.700-1.30 mg/dL Glomerular Filtration Rate Calc 75 >90 mL/min BUN/Creatinine Ratio 7.6 L 10.0-20.0 Serum Glucose 107 H 74-106 mg/dL Calcium Level 9.5 8.7-10.4 mg/dL Total Bilirubin 1.2 H 0.2-1.0 mg/dL Aspartate Amino Transferase (AST) 19 13-40 U/L Alanine Aminotransferase (ALT) < 9 7-40 U/L Alkaline Phosphatase 55 46-116 U/L Total Protein 6.5 5.7-8.2 g/dL Albumin 4.0 3.2-4.8 g/dL Hepatitis B Surface Antigen Negative Negative Test 02/04/25 06:02 02/04/25 04:38 02/04/25 03:09 Range/Units Troponin I High Sensitivity 15 </=54 ng/L Urine Color Light-yellow Yellow Urine Clarity Clear Clear Urine pH 6.0 5.0-9.0 Urine Specific [place] 1.024 1.001-1.035 Urine Protein Trace H Negative Urine Ketones Negative Negative Urine Blood Negative Negative /uL Urine Nitrite Negative Negative Urine Bilirubin Negative Negative Urine Urobilinogen Normal Negative mg/dL Urine Leukocyte Esterase Negative Negative /uL Urine RBC 1 0 - 3 /hpf Urine Microscopic WBC 1 0-3 /HPF Urine Squamous Epithelial Cells Few <5 /hpf Urine Bacteria None seen None Seen /hpf Urine Glucose Normal Normal mg/dL Hemoglobin A1c 5.6 <5.7 % A1C Amylase Level 79 30-118 U/L Lipase 34 12-53 U/L Assessment Heart failure with reduced ejection fraction 34% Atrial flutter with 3:1 AV block Cardiomyopathy, unspecified Type 2 diabetes, non-insulin dependent Hypertension History of atrial fibrillation Pancreatic cyst 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 Marijuana dependence Borderline prolonged QTC Plan/Recommendation EKG shows atrial flutter with 3:1 av block Pending CXR, BNP Per patient, stress test from 2002 was normal. Patient denies ever having any myocardial infarction or PCI. Attempts were made to contact patient's next of kin owing to patient being a poor historian. However was unable to reach any family members. RCRI 1 with a 6% risk of major cardiac event; from cardiology standpoint, patient is at a moderate risk for moderate risk surgery. Patient has good f unctional capacity equivalent to 4 METS and is ambulatory, currently not in CHF. Thank you for allowing us to participate in this patient's care. Cardiology team will sign off. Please call us if you have any questions or concerns. Plan discussed with Dr. Radford Plan discussed with: Patient, Other (RN) Visit Coding Cardiology RES Date of Service: Feb 08, 2025 Billing Provider: EMMIE RADFORD Sr., MD Cardiology Common Codes: [id number] INP/OBS CARE (High) MIKY CHATTERJEE RESIDENT Feb 08, 2025 16:12
--- NOTE | 2025-02-08 19:28 | DVH ---
CHEST TWO VIEWS REASON FOR EXAM: cardiac RCRI COMPARISON: 02/04/2025 TECHNIQUE: PA and lateral views of the chest are obtained. FINDINGS: The cardiomediastinal silhouette is within normal limits for size. There is aortic atheros clerosis. There is no focal airspace disease. There is no pleural effusion. No acute osseous abnormal ity is identified. IMPRESSION: No radiographic evidence of acute cardiopulmonary process.
[2025-02-09] VITALS (9 sets, daily range): BP systolic 127–140; BP diastolic 78–86; PULSE 71–84; RESP 18–20; TEMP 97.3–98.7; O2SAT 94–97
--- NOTE | 2025-02-09 09:41 | DVHPN2 ---
Reviewed: Care Plan, H&P, Labs, Medications, Previous Orders, Radiology Changes from previous H/P or p: No Changes Gastrointestinal: Nausea, Vomiting, Abdominal Pain, Other (Left flank pain) Musculoskeletal: other (Left flank pain) Objective Vitals Vital Signs Date Time Temp Pulse Resp B/P (MAP) Pulse Ox O2 Delivery O2 Flow Rate FiO2 02/09/25 05:00 97.5 74 18 136/85 (102) 95 97.5 02/08/25 20:00 Room Air* 0 21 Intake/Output Intake and Output 02/09/25 07:00 Intake Total 1360 ml Output Total 625 ml Balance 735 ml Intake Oral 360 ml IV Total 1000 ml Output Urine Total 625 ml General Appearance: Alert, Oriented X3, No acute distress Lungs: Clear to auscultation Cardiovascular: Regular rate Abdomen: Normal bowel sounds, Soft Medications Current Medications Medications Dose Ordered Sig/Nita Route Start Time Stop Time Status Last Admin Dose Admin Acetaminophen/ Hydrocodone Bitart 1 tab Q4HP PRN PO 02/04/25 07:45 02/07/25 07:59 1 TAB Ondansetron HCl 4 mg Q4HP PRN IV 02/04/25 07:45 Enoxaparin Sodium 40 mg DAILY SC 02/04/25 10:00 02/08/25 09:02 40 MG Acetaminophen 650 mg Q6HP PRN PO 02/04/25 07:45 Morphine Sulfate 2 mg Q4HPRN PRN IV 02/04/25 07:45 Nitroglycerin 0.4 mg Q5MINP PRN SL 02/04/25 07:45 Morphine Sulfate 2 mg Q30M PRN IV 02/04/25 07:45 Empaglifozin 10 mg QAM PO 02/05/25 07:00 02/09/25 05:07 10 MG Donepezil HCl 10 mg BID PO 02/04/25 10:00 02/08/25 21:34 10 MG Atorvastatin Calcium 40 mg HS PO 02/04/25 22:00 02/08/25 21:34 40 MG Hydralazine HCl 10 mg Q6HP PRN IV 02/04/25 08:00 02/07/25 05:04 10 MG Pantoprazole Sodium 40 mg BID@0600,1700 PO 02/07/25 17:00 02/09/25 05:07 40 MG Sucralfate 1 gm QID@0600,1130,1700,2200 PO 02/07/25 17:00 02/09/25 05:07 1 GM Sodium Chloride 1,000 ml @ 125 mls/hr Q8H IV 02/08/25 10:45 02/09/25 02:45 125 MLS/HR Laboratory Results Laboratory Tests 02/05/25 05:39 Cardiac Markers Test 02/08/25 17:40 B-Type Natriuretic Peptide 15.98 pg/mL (0-100) Urinalysis Test 02/04/25 04:38 Urine Color Light-yellow (Yellow) Urine Clarity Clear (Clear) Urine pH 6.0 (5.0-9.0) Urine Specific [place] 1.024 (1.001-1.035) Urine Protein Trace (Negative) H Urine Ketones Negative (Negative) Urine Blood Negative /uL (Negative) Urine Nitrite Negative (Negative) Urine Bilirubin Negative (Negative) Urine Urobilinogen Normal mg/dL (Negative) Urine Leukocyte Esterase Negative /uL (Negative) Urine RBC 1 /hpf (0 - 3) Urine Microscopic WBC 1 /HPF (0-3) Urine Squamous Epithelial Cells Few /hpf (<5) Urine Bacteria None seen /hpf (None Seen) Urine Glucose Normal mg/dL (Normal) Labs and/or images reviewed: Labs reviewed by me, Image(s) reviewed by me Assessment/Plan Assessment/Plan Acute Cholecystitis by positive HIDA scan, Dr. Sheehan cleared for surgery, Dr. Desai planning for cholecystectomy Intractable abdominal and lt flank pain pain with nausea and vomiting, GI consult for Dr. 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 Golden Marte recommended follow up at higher level of care as an outpatient Mild gastritis and duodenitis by EGD by Dr. Golden Marte Hypertension CHF AFib Time spent 50 minutes Advanced care planning time 20 minutes Patient is full code Plan discussed with: Patient My Orders Orders - VAUGHN WILSON MD Procedure Category Date Status Time Sodium Chloride 0.9% PHA 02/08/25 In Process 10:45 Date of Service: Feb 09, 2025 Billing Provider: VAUGHN WILSON MD Common Visit Codes: [id number] INP/OBS CARE(HIGH) VAUGHN WILSON MD Feb 09, 2025 09:41
--- NOTE | 2025-02-09 22:54 | DVHPN2 ---
Progress Note - Dictate Date Seen: Feb 09, 2025 Medical Necessity Reason Pt with a Central, PICC or Fol: No Subjective No new complaints Undergoing cardiology workup and assessment vital signs Vital Sign Date Time Temp Pulse Resp B/P (MAP) Pulse Ox O2 Delivery O2 Flow Rate FiO2 02/09/25 21:00 97.3 77 18 130/79 (96) 95 97.3 02/09/25 08:13 Room Air* 0 21 Total Intake and Output 02/08/25 02/08/25 02/09/25 15:00 23:00 07:00 Intake Total 360 ml 1000 ml Output Total 225 ml 400 ml Balance 135 ml 600 ml medications Current Medications Medications Dose Ordered Sig/Nita Route Start Time Stop Time Status Last Admin Dose Admin Acetaminophen/ Hydrocodone Bitart 1 tab Q4HP PRN PO 02/04/25 07:45 02/07/25 07:59 1 TAB Ondansetron HCl 4 mg Q4HP PRN IV 02/04/25 07:45 Enoxaparin Sodium 40 mg DAILY SC 02/04/25 10:00 02/08/25 09:02 40 MG Acetaminophen 650 mg Q6HP PRN PO 02/04/25 07:45 Morphine Sulfate 2 mg Q4HPRN PRN IV 02/04/25 07:45 Nitroglycerin 0.4 mg Q5MINP PRN SL 02/04/25 07:45 Morphine Sulfate 2 mg Q30M PRN IV 02/04/25 07:45 Empaglifozin 10 mg QAM PO 02/05/25 07:00 02/09/25 05:07 10 MG Donepezil HCl 10 mg BID PO 02/04/25 10:00 02/09/25 22:32 10 MG Atorvastatin Calcium 40 mg HS PO 02/04/25 22:00 02/09/25 22:32 40 MG Hydralazine HCl 10 mg Q6HP PRN IV 02/04/25 08:00 02/07/25 05:04 10 MG Pantoprazole Sodium 40 mg BID@0600,1700 PO 02/07/25 17:00 02/09/25 17:59 40 MG Sucralfate 1 gm QID@0600,1130,1700,2200 PO 02/07/25 17:00 02/09/25 22:33 1 GM Sodium Chloride 1,000 ml @ 125 mls/hr Q8H IV 02/08/25 10:45 02/09/25 20:18 125 MLS/HR objective General Appearance: Alert, Oriented X3, No acute distress Lungs: Clear to auscultation Cardiovascular: Regular rate Abdomen: Normal bowel sounds, Soft laboratory and microbiology Laboratory Tests 02/05/25 05:39 Test 02/05/25 05:39 Range/Units Serum Glucose 107 H 74-106 mg/dL Problems(with codes): (1) Abdominal pain (2) Pancreatic cyst (3) Cholecystitis (4) Intractable abdominal pain Prognosis PLAN Cardiology recommendations noted: RCRI 1 with a 6% risk of major cardiac event; from cardiology standpoint, patient is at a moderate risk for moderate risk surgery. Patient has good functional capacity equivalent to 4 METS and is ambulatory, currently not in CHF. awaiting laparoscopic cholecystectomy Continue PPI and Carafate Avoid/ DC aspirin and NSAIDs Plan discussed with: Other (None) CHRISTIAN KEITH MD Feb 09, 2025 22:54
[2025-02-10] VITALS (11 sets, daily range): BP systolic 126–168; BP diastolic 71–98; PULSE 39–93; RESP 13–20; TEMP 97.4–98.4; O2SAT 92–100
[2025-02-10] MEDS: GABAPENTIN 300 MG CAP PO ONE (08:40)
[2025-02-10] MEDS: CELECOXIB 100 MG CAP PO ONE (08:40)
[2025-02-10] MEDS: ACETAMINOPHEN IV 1000 MG/100ML (10MG/ML) IV ONE (08:40)
[2025-02-10] MEDS ORDERED: DexAMETHasone SOD PHOS 10MG/1ML VIAL INJ ONE (08:43)
[2025-02-10] MEDS ORDERED: LIDOCAINE 2% (LOCAL ANESTH.) PF 5ml SDV ONE (08:43)
[2025-02-10] MEDS ORDERED: ONDANSETRON HCL 4 MG/2 ML VIAL ONE (08:43)
[2025-02-10] MEDS ORDERED: LIDOCAINE 1% INJ PF 5ML AMP ONE ×2 (08:43→09:34)
[2025-02-10] MEDS ORDERED: ROCURONIUM 10MG/ML 10ML VIAL IV ONE (08:43)
[2025-02-10] MEDS ORDERED: GLYCOPYRROLATE 0.2 MG/ML 1ML VIAL ONE (08:43)
[2025-02-10] MEDS ORDERED: PROPOFOL 10 MG/ML 20 ML IV ONE (08:43)
[2025-02-10] MEDS ORDERED: SUGAMMADEX 200mg/2ml Vial (100MG/ML) IV ONE (08:43)
[2025-02-10] MEDS ORDERED: KETOROLAC TROMETH 30 MG/ML 1ML VIAL ONE (08:43)
[2025-02-10] MEDS ORDERED: fentaNYL CITRATE 100 MCG/2 ML VL ONE (08:44)
[2025-02-10 09:01] LABS: INR 1.14 (0.9-1.15); Partial Thromboplastin Time 29.7 SEC (24.5-34.5); Prothrombin Time 11.9 sec (9.3-11.8)
[2025-02-10] MEDS ORDERED: ePHEDrine SULFATE 50 MG/ML AMP ONE (09:13)
[2025-02-10] MEDS: BUPIVACAINE 0.5% P/F INJ 10 ML VIAL ONE (09:23)
--- NOTE | 2025-02-10 10:08 | DVHOP ---
DATE OF SURGERY: 02/10/2025 PREOPERATIVE DIAGNOSES: Cholelithiasis, cholecystitis. POSTOPERATIVE DIAGNOSES: Cholelithiasis, cholecystitis. SURGEON: Manuel Desai MD SUPERVISOR HARVESTING: Germain Avila. ANESTHESIA: General endotracheal, Jarrett Lee. PROCEDURE: Laparoscopy, laparoscopic cholecystectomy. DESCRIPTION OF PROCEDURE: Under general endotracheal anesthesia with the patient's skin prepped and draped, a supraumbilical incision was made and Veress needle inserted into the peritoneal cavity by the hanging drop technique in order to establish pneumoperitoneum to 15 mm pressure by insufflation with carbon dioxide. With the abdomen fully distended, the needle was removed and replaced with a 5 mm trocar port through which a 0-degree viewing laparoscope was inserted. Under direct vision, an additional 5 mm port and 10 mm ports were inserted through the right anterior axillary line at the level of the umbilicus and through the subxiphoid midline skin. Subsequently, instrumentation was introduced into the peritoneal cavity and laparoscopy was performed, revealing a chronically inflamed gallbladder, massively enlarged and covered with the omentum. Lysis of these adhesions was accomplished sharply and bluntly and the gallbladder was then placed on tension cephalad. The cystic duct and cystic artery were identified, circumferentially dissected, skeletonized, and traced into the hepatocystic triangle so as to minimize the potential for inadvertent injury to the common bile duct. The cystic duct and cystic artery were then subsequently divided between metallic clips away from the common duct, again attempting to avoid inadvertent injury to the common bile duct. Subsequently, the gallbladder was resected from its liver bed by electrocautery and traction, placed into the specimen extraction bag and removed from the peritoneal cavity through the 10 mm port site. Right upper quadrant was irrigated. Irrigant was aspirated. Hemostasis was found to be complete. At the termination of the procedure, there was no evidence of bleeding from either the port sites or from the cholecystectomy site. The instrumentation was withdrawn. Pneumoperitoneum was evacuated. Fascia defect closed using 0 Vicryl. The wound was approximated using Monocryl sutures, Dermabond glue, and Steri-Strips. The patient remained stable throughout the procedure and left the operating room following an accurate needle and sponge counts. Family was thoroughly informed by phone. Manuel Desai MD PF/SAY TID: [id number] RECEIPT: [id number]
[2025-02-10] MEDS ORDERED: HYDROmorphone HCL 2 MG/ML VL/or syr IV PRN (10:15)
[2025-02-10] MEDS ORDERED: ONDANSETRON HCL 4 MG/2 ML VIAL IV PRN (10:15)
[2025-02-10] MEDS ORDERED: NALOXONE HCL 0.4 MG/ML VIAL IV PRN (10:15)
[2025-02-10] MEDS ORDERED: ePHEDrine SULFATE 50 MG/ML AMP IV PRN (10:15)
[2025-02-10] MEDS ORDERED: oxyCODONE HCL 5MG TAB PO PRN (10:15)
[2025-02-10] MEDS ORDERED: FLUMAZENIL 0.1 MG/ML INJ 10ML MDV IV PRN (10:15)
[2025-02-10] MEDS ORDERED: fentaNYL CITRATE 100 MCG/2 ML VL IV PRN (10:15)
[2025-02-10] MEDS ORDERED: hydrALAZINE HCL 20 MG/ML VL IV PRN (10:15)
--- NOTE | 2025-02-10 11:08 | DVHPN2 ---
Progress Note - Dictate Date Seen: Feb 10, 2025 Medical Necessity Reason Pt with a Central, PICC or Fol: No Subjective Patient is S/P and underwent tubal laparoscopic cholecystectomy this morning vital signs Vital Sign Date Time Temp Pulse Resp B/P (MAP) Pulse Ox O2 Delivery O2 Flow Rate FiO2 02/10/25 10:00 Mask 5.0 02/10/25 10:00 78 13 100 02/10/25 10:00 97.4 134/77 (96) 97.4 02/09/25 20:00 21 Total Intake and Output 02/09/25 02/09/25 02/10/25 15:00 23:00 07:00 Intake Total 0 ml 0 ml Output Total 100 ml 600 ml 150 ml Balance -100 ml -600 ml -150 ml medications Current Medications Medications Dose Ordered Sig/Nita Route Start Time Stop Time Status Last Admin Dose Admin Acetaminophen/ Hydrocodone Bitart 1 tab Q4HP PRN PO 02/04/25 07:45 02/07/25 07:59 1 TAB Ondansetron HCl 4 mg Q4HP PRN IV 02/04/25 07:45 Enoxaparin Sodium 40 mg DAILY SC 02/04/25 10:00 02/08/25 09:02 40 MG Acetaminophen 650 mg Q6HP PRN PO 02/04/25 07:45 Morphine Sulfate 2 mg Q4HPRN PRN IV 02/04/25 07:45 Nitroglycerin 0.4 mg Q5MINP PRN SL 02/04/25 07:45 Morphine Sulfate 2 mg Q30M PRN IV 02/04/25 07:45 Empaglifozin 10 mg QAM PO 02/05/25 07:00 02/10/25 05:32 10 MG Donepezil HCl 10 mg BID PO 02/04/25 10:00 02/09/25 22:32 10 MG Atorvastatin Calcium 40 mg HS PO 02/04/25 22:00 02/09/25 22:32 40 MG Hydralazine HCl 10 mg Q6HP PRN IV 02/04/25 08:00 02/07/25 05:04 10 MG Pantoprazole Sodium 40 mg BID@0600,1700 PO 02/07/25 17:00 02/10/25 05:33 40 MG Sucralfate 1 gm QID@0600,1130,1700,2200 PO 02/07/25 17:00 02/10/25 05:32 1 GM Sodium Chloride 1,000 ml @ 125 mls/hr Q8H IV 02/08/25 10:45 02/09/25 20:18 125 MLS/HR Oxycodone HCl 10 mg ONCE PRN PO 02/10/25 10:15 02/10/25 12:00 objective General Appearance: Alert, Oriented X3, No acute distress Lungs: Clear to auscultation Cardiovascular: Regular rate Abdomen: Normal bowel sounds, Soft; dressing dry Extremities without clubbing cyanosis or edema laboratory and microbiology Laboratory Tests 02/05/25 05:39 Test 02/05/25 05:39 Range/Units Serum Glucose 107 H 74-106 mg/dL Problems(with codes): (1) Cholelithiasis with cholecystitis (2) Abdominal pain (3) Pancreatic cyst (4) Cirrhosis (5) Ascites Prognosis Plan Start clear liquid diet Pain control IV antibiotics Monitor labs Plan discussed with: Other (Recovery room nurse) CHRISTIAN KEITH MD Feb 10, 2025 11:08
--- NOTE | 2025-02-10 11:48 | DVHPN2 ---
Reviewed: Care Plan, H&P, Labs, Medications, Previous Orders, Radiology Changes from previous H/P or p: No Changes Gastrointestinal: Nausea, Vomiting, Abdominal Pain, Other (Left flank pain) Musculoskeletal: other (Left flank pain) Objective Vitals Vital Signs Date Time Temp Pulse Resp B/P (MAP) Pulse Ox O2 Delivery O2 Flow Rate FiO2 02/10/25 10:50 91 15 142/84 (103) 95 02/10/25 10:00 Mask 5.0 02/10/25 10:00 97.4 97.4 02/09/25 20:00 21 Intake/Output Intake and Output 02/10/25 07:00 Intake Total 0 ml Output Total 850 ml Balance -850 ml Intake Oral 0 ml Output Urine Total 850 ml # Voids 2 # Bowel Movements 6 General Appearance: Alert, Oriented X3, No acute distress Lungs: Clear to auscultation Cardiovascular: Regular rate Abdomen: Normal bowel sounds, Soft Medications Current Medications Medications Dose Ordered Sig/Nita Route Start Time Stop Time Status Last Admin Dose Admin Acetaminophen/ Hydrocodone Bitart 1 tab Q4HP PRN PO 02/04/25 07:45 02/07/25 07:59 1 TAB Ondansetron HCl 4 mg Q4HP PRN IV 02/04/25 07:45 Enoxaparin Sodium 40 mg DAILY SC 02/04/25 10:00 02/08/25 09:02 40 MG Acetaminophen 650 mg Q6HP PRN PO 02/04/25 07:45 Morphine Sulfate 2 mg Q4HPRN PRN IV 02/04/25 07:45 Nitroglycerin 0.4 mg Q5MINP PRN SL 02/04/25 07:45 Morphine Sulfate 2 mg Q30M PRN IV 02/04/25 07:45 Empaglifozin 10 mg QAM PO 02/05/25 07:00 02/10/25 05:32 10 MG Donepezil HCl 10 mg BID PO 02/04/25 10:00 02/09/25 22:32 10 MG Atorvastatin Calcium 40 mg HS PO 02/04/25 22:00 02/09/25 22:32 40 MG Hydralazine HCl 10 mg Q6HP PRN IV 02/04/25 08:00 02/07/25 05:04 10 MG Pantoprazole Sodium 40 mg BID@0600,1700 PO 02/07/25 17:00 6/6/25 05:33 40 MG Sucralfate 1 gm QID@0600,1130,1700,2200 PO 02/07/25 17:00 02/10/25 05:32 1 GM Sodium Chloride 1,000 ml @ 125 mls/hr Q8H IV 02/08/25 10:45 02/09/25 20:18 125 MLS/HR Oxycodone HCl 10 mg ONCE PRN PO 02/10/25 10:15 02/10/25 12:00 Laboratory Results Laboratory Tests 02/05/25 05:39 Coagulation Test 02/10/25 08:01 Prothrombin Time 11.9 sec (9.3-11.8) H Prothrombin Time INR 1.14 (0.9-1.15) Activated Partial Thromboplast Time 29.7 SEC (24.5-34.5) Urinalysis Test 02/04/25 04:38 Urine Color Light-yellow (Yellow) Urine Clarity Clear (Clear) Urine pH 6.0 (5.0-9.0) Urine Specific [place] 1.024 (1.001-1.035) Urine Protein Trace (Negative) H Urine Ketones Negative (Negative) Urine Blood Negative /uL (Negative) Urine Nitrite Negative (Negative) Urine Bilirubin Negative (Negative) Urine Urobilinogen Normal mg/dL (Negative) Urine Leukocyte Esterase Negative /uL (Negative) Urine RBC 1 /hpf (0 - 3) Urine Microscopic WBC 1 /HPF (0-3) Urine Squamous Epithelial Cells Few /hpf (<5) Urine Bacteria None seen /hpf (None Seen) Urine Glucose Normal mg/dL (Normal) Labs and/or images reviewed: Labs reviewed by me, Image(s) reviewed by me Assessment/Plan Assessment/Plan Acute Cholecystitis status post lap patricia by Dr. Desai on 02-10-25 Intractable abdominal and lt flank pain pain with nausea and vomiting, GI consult for Dr. 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 Golden Marte recommended follow up at higher level of care as an outpatient Mild gastritis and duodenitis by EGD by Dr. Golden Marte Hypertension CHF AFib Time spent 50 minutes Advanced care planning time 20 minutes Patient is full code Plan discussed with: Patient Date of Service: Feb 10, 2025 Billing Provider: VAUGHN WILSON MD Common Visit Codes: [id number] INP/OBS CARE(HIGH) VAUGHN WILSON MD Feb 10, 2025 11:48
[2025-02-10] MEDS: metroNIDAZOLE 500MG/100ML 100 ML IV SCH (18:17)
[2025-02-10] MEDS: ACETAMINOPHEN IV 100 ML IV ONE (18:26)
[2025-02-10] MEDS: LIDOCAINE 2%HCL (LOCAL ANESTH.) INJ 10ml MDV ONE (18:26)
[2025-02-10] MEDS: CELECOXIB 100 MG CAP ONE (18:26)
[2025-02-10] MEDS: LIDOCAINE W/ EPINEPHRINE 1% 20ML VIAL ONE (18:26)
[2025-02-10] MEDS: GABAPENTIN 300 MG CAP ONE (18:26)
[2025-02-10] MEDS: levoFLOXacin 500MG 100 ML IV ONE (18:26)
[2025-02-11] VITALS (9 sets, daily range): BP systolic 100–158; BP diastolic 59–95; PULSE 59–98; RESP 14–20; TEMP 97.6–98.9; O2SAT 92–100
[2025-02-11 05:40] LABS: Basophils # (auto) 0 10 ^3/uL (0-0.2); Basophils % (auto) 0.1 % (0.0-2.0); Eosinophils # (auto) 0 10 ^3/uL (0-0.8); Hematocrit 41.1 % (41.0-53.0); Hemoglobin 13.9 g/dL (13.5-17.5); Lymphocytes # (auto) 0.7 10 ^3/uL (0.4-5.4); Lymphocytes % (auto) 6.9 % (10.0-50.0); Mean Corpuscular Hemoglobin 27.3 pg (28.0-32.0); Mean Corpuscular Hgb Conc. 33.8 g/dL (32.0-36.0); Mean Corpuscular Volume 80.8 fL (80.0-100.0); Monocytes # (auto) 1.1 10 ^3/uL (0-1.3); Monocytes % (auto) 10.5 % (0.0-12.0); Neutrophils # (auto) 8.3 10 ^3/uL (1.6-8.6); Neutrophils % (auto) 82.5 % (37.0-80.0); Nucleated Red Blood Cells % 0.1 %; Platelet Count (auto) 142 10^3/uL (140-450); Red Blood Cells 5.09 10^6/uL (4.5-5.90); Red Cell Distribution Width 14.1 % (11.8-14.3); White Blood Cell 10.1 10^3/uL (4.4-10.8)
--- NOTE | 2025-02-11 09:55 | DVHPN2 ---
Progress Note - Surgical Date Seen: Feb 11, 2025 Post op day Post op day: 1 Subjective Patient reports: Feels better Review of Systems: HEENT:Abnormal, CVS:Normal, RESPIRATORY:Normal, GI:Abnormal, :Normal, MSK:Normal, NEURO:Normal Objective Vital signs Vital Sign Date Time Temp Pulse Resp B/P (MAP) Pulse Ox O2 Delivery O2 Flow Rate FiO2 02/11/25 07:45 98 16 97 Nasal Cannula* 2 28 02/11/25 04:56 98.0 143/84 (103) 98.0 Total Intake and Output 02/10/25 02/10/25 02/11/25 15:00 23:00 07:00 Intake Total 100 ml 500 ml 650 ml Output Total 450 ml 700 ml Balance 100 ml 50 ml -50 ml Medications Current Medications Medications Dose Ordered Sig/Nita Route Start Time Stop Time Status Last Admin Dose Admin Acetaminophen/ Hydrocodone Bitart 1 tab Q4HP PRN PO 02/04/25 07:45 02/07/25 07:59 1 TAB Ondansetron HCl 4 mg Q4HP PRN IV 02/04/25 07:45 Enoxaparin Sodium 40 mg DAILY SC 02/04/25 10:00 02/11/25 09:33 40 MG Acetaminophen 650 mg Q6HP PRN PO 02/04/25 07:45 Morphine Sulfate 2 mg Q4HPRN PRN IV 02/04/25 07:45 Nitroglycerin 0.4 mg Q5MINP PRN SL 02/04/25 07:45 Morphine Sulfate 2 mg Q30M PRN IV 02/04/25 07:45 Empaglifozin 10 mg QAM PO 02/05/25 07:00 02/11/25 05:07 10 MG Donepezil HCl 10 mg BID PO 02/04/25 10:00 02/11/25 09:31 10 MG Atorvastatin Calcium 40 mg HS PO 02/04/25 22:00 02/10/25 21:09 40 MG Hydralazine HCl 10 mg Q6HP PRN IV 02/04/25 08:00 02/07/25 05:04 10 MG Pantoprazole Sodium 40 mg BID@0600,1700 PO 02/07/25 17:00 02/11/25 05:07 40 MG Sucralfate 1 gm QID@0600,1130,1700,2200 PO 02/07/25 17:00 02/11/25 05:07 1 GM Sodium Chloride 1,000 ml @ 125 mls/hr Q8H IV 02/08/25 10:45 02/11/25 03:24 125 MLS/HR Metronidazole 100 ml @ 100 mls/hr Q8HR IV 02/10/25 14:00 02/11/25 05:06 100 MLS/HR Laboratory Laboratory Tests 02/11/25 04:57 02/05/25 05:39 Test 02/05/25 05:39 Range/Units Serum Glucose 107 H 74-106 mg/dL Examination: GENERAL:Normal, HEENT:Normal, NECK:Normal, LUNGS:Normal, CVS:Normal, ABDOMEN:Normal, SKIN:Normal, NEURO:Normal, :Normal Problem List/Assessment/Plan Assessment and Plan 74 year old with abdominal pain, most likely due to his cholelithiasis, also has two cystic lesions in his pancreas. will await HIDA scan . Most likely needs cholecystectomy Plan discussed with Plan discussed with: Patient Visit Coding Surgery Date of Service if different f: Feb 11, 2025 Billing Provider: TEVIN العلي MD Surgery Visit Codes: [id number] INP/OBS CARE(HIGH) TEVIN العلي MD Feb 11, 2025 09:55
--- NOTE | 2025-02-11 11:32 | DVHPN2 ---
Reviewed: Care Plan, H&P, Labs, Medications, Previous Orders, Radiology Changes from previous H/P or p: No Changes Gastrointestinal: Nausea, Vomiting, Abdominal Pain, Other (Left flank pain) Musculoskeletal: other (Left flank pain) Objective Vitals Vital Signs Date Time Temp Pulse Resp B/P (MAP) Pulse Ox O2 Delivery O2 Flow Rate FiO2 02/11/25 08:30 98.5 98 16 158/95 (116) 92 98.5 02/11/25 07:45 Nasal Cannula* 2 28 Intake/Output Intake and Output 02/11/25 07:00 Intake Total 1250 ml Output Total 1150 ml Balance 100 ml Intake Oral 1050 ml IV Total 200 ml Output Urine Total 1150 ml General Appearance: Alert, Oriented X3, No acute distress Lungs: Clear to auscultation Cardiovascular: Regular rate Abdomen: Normal bowel sounds, Soft Medications Current Medications Medications Dose Ordered Sig/Nita Route Start Time Stop Time Status Last Admin Dose Admin Acetaminophen/ Hydrocodone Bitart 1 tab Q4HP PRN PO 02/04/25 07:45 02/07/25 07:59 1 TAB Ondansetron HCl 4 mg Q4HP PRN IV 02/04/25 07:45 Enoxaparin Sodium 40 mg DAILY SC 02/04/25 10:00 02/11/25 09:33 40 MG Acetaminophen 650 mg Q6HP PRN PO 02/04/25 07:45 Morphine Sulfate 2 mg Q4HPRN PRN IV 02/04/25 07:45 Nitroglycerin 0.4 mg Q5MINP PRN SL 02/04/25 07:45 Morphine Sulfate 2 mg Q30M PRN IV 02/04/25 07:45 Empaglifozin 10 mg QAM PO 02/05/25 07:00 02/11/25 05:07 10 MG Donepezil HCl 10 mg BID PO 02/04/25 10:00 02/11/25 09:31 10 MG Atorvastatin Calcium 40 mg HS PO 02/04/25 22:00 02/10/25 21:09 40 MG Hydralazine HCl 10 mg Q6HP PRN IV 02/04/25 08:00 02/07/25 05:04 10 MG Pantoprazole Sodium 40 mg BID@0600,1700 PO 02/07/25 17:00 02/11/25 05:07 40 MG Sucralfate 1 gm QID@0600,1130,1700,2200 PO 02/07/25 17:00 02/11/25 05:07 1 GM Sodium Chloride 1,000 ml @ 125 mls/hr Q8H IV 02/08/25 10:45 02/11/25 03:24 125 MLS/HR Metronidazole 100 ml @ 100 mls/hr Q8HR IV 02/10/25 14:00 02/11/25 05:06 100 MLS/HR Laboratory Results Laboratory Tests 02/05/25 05:39 02/11/25 04:57 LFT Test 02/11/25 04:57 Total Bilirubin 0.7 mg/dL (0.2-1.0) Urinalysis Test 02/04/25 04:38 Urine Color Light-yellow (Yellow) Urine Clarity Clear (Clear) Urine pH 6.0 (5.0-9.0) Urine Specific [place] 1.024 (1.001-1.035) Urine Protein Trace (Negative) H Urine Ketones Negative (Negative) Urine Blood Negative /uL (Negative) Urine Nitrite Negative (Negative) Urine Bilirubin Negative (Negative) Urine Urobilinogen Normal mg/dL (Negative) Urine Leukocyte Esterase Negative /uL (Negative) Urine RBC 1 /hpf (0 - 3) Urine Microscopic WBC 1 /HPF (0-3) Urine Squamous Epithelial Cells Few /hpf (<5) Urine Bacteria None seen /hpf (None Seen) Urine Glucose Normal mg/dL (Normal) Labs and/or images reviewed: Labs reviewed by me, Image(s) reviewed by me Assessment/Plan Assessment/Plan Acute Cholecystitis status post lap patricia by Dr. Desai on 02-10-25 Intractable abdominal and lt flank pain pain with nausea and vomiting, GI consult for Dr. 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 Golden Marte recommended follow up at higher level of care as an outpatient Mild gastritis and duodenitis by EGD by Dr. Golden Marte Hypertension CHF AFib History of right inguinal hernia surgery Visually impaired Enlarged prostate Time spent 50 minutes Advanced care planning time 20 minutes Patient is full code Plan discussed with: Patient Date of Service: Feb 11, 2025 Billing Provider: VAUGHN WILSON MD Common Visit Codes: [id number] INP/OBS CARE(HIGH) VAUGHN WILSON MD Feb 11, 2025 11:32
[2025-02-12] VITALS (9 sets, daily range): BP systolic 124–154; BP diastolic 75–91; PULSE 67–84; RESP 17–20; TEMP 97.4–98.7; O2SAT 95–97
[2025-02-12] MEDS ORDERED: FLUT1SPR21 (09:57)
--- NOTE | 2025-02-12 10:59 | DVHPN2 ---
Reviewed: Care Plan, H&P, Labs, Medications, Previous Orders, Radiology Changes from previous H/P or p: No Changes Gastrointestinal: Nausea, Vomiting, Abdominal Pain, Other (Left flank pain) Musculoskeletal: other (Left flank pain) Objective Vitals Vital Signs Date Time Temp Pulse Resp B/P (MAP) Pulse Ox O2 Delivery O2 Flow Rate FiO2 02/12/25 08:49 98.3 74 17 141/86 (104) 96 98.3 02/12/25 08:00 Room Air* 0 21 Intake/Output Intake and Output 02/12/25 07:00 Intake Total 1250 ml Output Total 600 ml Balance 650 ml Intake Oral 1150 ml IV Total 100 ml Output Urine Total 600 ml # Voids 25 # Bowel Movements 2 General Appearance: Alert, Oriented X3, No acute distress Lungs: Clear to auscultation Cardiovascular: Regular rate Abdomen: Normal bowel sounds, Soft Medications Current Medications Medications Dose Ordered Sig/Nita Route Start Time Stop Time Status Last Admin Dose Admin Acetaminophen/ Hydrocodone Bitart 1 tab Q4HP PRN PO 02/04/25 07:45 02/07/25 07:59 1 TAB Ondansetron HCl 4 mg Q4HP PRN IV 02/04/25 07:45 Enoxaparin Sodium 40 mg DAILY SC 02/04/25 10:00 02/12/25 10:02 40 MG Acetaminophen 650 mg Q6HP PRN PO 02/04/25 07:45 Morphine Sulfate 2 mg Q4HPRN PRN IV 02/04/25 07:45 Nitroglycerin 0.4 mg Q5MINP PRN SL 02/04/25 07:45 Morphine Sulfate 2 mg Q30M PRN IV 02/04/25 07:45 Empaglifozin 10 mg QAM PO 02/05/25 07:00 02/12/25 05:16 10 MG Donepezil HCl 10 mg BID PO 02/04/25 10:00 02/12/25 10:02 10 MG Atorvastatin Calcium 40 mg HS PO 02/04/25 22:00 02/11/25 21:42 40 MG Hydralazine HCl 10 mg Q6HP PRN IV 02/04/25 08:00 02/07/25 05:04 10 MG Pantoprazole Sodium 40 mg BID@0600,1700 PO 02/07/25 17:00 02/12/25 05:15 40 MG Sucralfate 1 gm QID@0600,1130,1700,2200 PO 02/07/25 17:00 02/12/25 10:02 1 GM Metronidazole 100 ml @ 100 mls/hr Q8HR IV 02/10/25 14:00 02/11/25 21:38 100 MLS/HR Laboratory Results Laboratory Tests 02/05/25 05:39 02/11/25 04:57 Urinalysis Test 02/04/25 04:38 Urine Color Light-yellow (Yellow) Urine Clarity Clear (Clear) Urine pH 6.0 (5.0-9.0) Urine Specific [place] 1.024 (1.001-1.035) Urine Protein Trace (Negative) H Urine Ketones Negative (Negative) Urine Blood Negative /uL (Negative) Urine Nitrite Negative (Negative) Urine Bilirubin Negative (Negative) Urine Urobilinogen Normal mg/dL (Negative) Urine Leukocyte Esterase Negative /uL (Negative) Urine RBC 1 /hpf (0 - 3) Urine Microscopic WBC 1 /HPF (0-3) Urine Squamous Epithelial Cells Few /hpf (<5) Urine Bacteria None seen /hpf (None Seen) Urine Glucose Normal mg/dL (Normal) Labs and/or images reviewed: Labs reviewed by me, Image(s) reviewed by me Assessment/Plan Assessment/Plan Acute Cholecystitis status post lap patricia by Dr. Desai on 02-10-25 Intractable abdominal and lt flank pain pain with nausea and vomiting, GI consult for Dr. 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 Golden Marte recommended follow up at higher level of care as an outpatient Mild gastritis and duodenitis by EGD by Dr. Golden Marte Hypertension CHF AFib History of right inguinal hernia surgery Visually impaired Enlarged prostate Time spent 50 minutes Advanced care planning time 20 minutes Patient is full code Plan discussed with: Patient My Orders Orders - VAUGHN WILSON MD Procedure Category Date Status Time Soft Diet DIET 02/11/25 Transmitted Lunch Communication Order ORDERS 02/11/25 Transmitted 19:01 Date of Service: Feb 12, 2025 Billing Provider: VAUGHN WILSON MD Common Visit Codes: [id number] INP/OBS CARE(HIGH) VAUGHN WILSON MD Feb 12, 2025 10:59
[2025-02-12] MEDS: Ensure HIGH Protein Chocolate 8oz Bottle PO SCH (11:07)
--- NOTE | 2025-02-12 11:35 | DVHPN2 ---
Progress Note - Surgical Date Seen: Feb 12, 2025 Post op day Post op day: 3 Subjective Review of Systems: HEENT:Abnormal, CVS:Normal, RESPIRATORY:Normal, GI:Normal, :Normal, MSK:Normal, NEURO:Normal Objective Vital signs Vital Sign Date Time Temp Pulse Resp B/P (MAP) Pulse Ox O2 Delivery O2 Flow Rate FiO2 02/12/25 08:49 98.3 74 17 141/86 (104) 96 98.3 02/12/25 08:00 Room Air* 0 21 Total Intake and Output 02/11/25 02/11/25 02/12/25 15:00 23:00 07:00 Intake Total 100 ml 650 ml 500 ml Output Total 200 ml 400 ml Balance -100 ml 650 ml 100 ml Medications Current Medications Medications Dose Ordered Sig/Nita Route Start Time Stop Time Status Last Admin Dose Admin Acetaminophen/ Hydrocodone Bitart 1 tab Q4HP PRN PO 02/04/25 07:45 02/07/25 07:59 1 TAB Ondansetron HCl 4 mg Q4HP PRN IV 02/04/25 07:45 Enoxaparin Sodium 40 mg DAILY SC 02/04/25 10:00 02/12/25 10:02 40 MG Acetaminophen 650 mg Q6HP PRN PO 02/04/25 07:45 Morphine Sulfate 2 mg Q4HPRN PRN IV 02/04/25 07:45 Nitroglycerin 0.4 mg Q5MINP PRN SL 02/04/25 07:45 Morphine Sulfate 2 mg Q30M PRN IV 02/04/25 07:45 Empaglifozin 10 mg QAM PO 02/05/25 07:00 02/12/25 05:16 10 MG Donepezil HCl 10 mg BID PO 02/04/25 10:00 02/12/25 10:02 10 MG Atorvastatin Calcium 40 mg HS PO 02/04/25 22:00 02/11/25 21:42 40 MG Hydralazine HCl 10 mg Q6HP PRN IV 02/04/25 08:00 02/07/25 05:04 10 MG Pantoprazole Sodium 40 mg BID@0600,1700 PO 02/07/25 17:00 02/12/25 05:15 40 MG Sucralfate 1 gm QID@0600,1130,1700,2200 PO 02/07/25 17:00 02/12/25 10:02 1 GM Metronidazole 100 ml @ 100 mls/hr Q8HR IV 02/10/25 14:00 02/11/25 21:38 100 MLS/HR Enteral Nutritional Formula 240 ml TIDWM PO 02/12/25 12:00 02/12/25 11:07 240 ML Laboratory Laboratory Tests 02/11/25 04:57 02/05/25 05:39 Test 02/05/25 05:39 Range/Units Serum Glucose 107 H 74-106 mg/dL Examination: GENERAL:Normal, HEENT:Normal, NECK:Normal, LUNGS:Normal, CVS:Normal, ABDOMEN:Normal, MSK:Normal, SKIN:Normal, NEURO:Normal, :Normal Labs and/or images reviewed: Labs reviewed by me Problem List/Assessment/Plan Assessment and Plan 74 year old with abdominal pain, most likely due to his cholelithiasis, also has two cystic lesions in his pancreas. will await HIDA scan . Most likely needs cholecystectomy 02/12/25 feels well, tolerating po diet, ambulating, normal bowel and bladder function, cleared for discharge Plan discussed with Plan discussed with: Patient Visit Coding Surgery Date of Service if different f: Feb 12, 2025 Billing Provider: TEVIN العلي MD Surgery Visit Codes: [id number] INP/OBS CARE(HIGH) TEVIN العلي MD Feb 12, 2025 11:35
[2025-02-13] VITALS (8 sets, daily range): BP systolic 133–177; BP diastolic 84–97; PULSE 72–91; RESP 16–20; TEMP 97.7–98.8; O2SAT 93–96
--- NOTE | 2025-02-13 11:15 | DVHPN2 ---
Reviewed: Care Plan, H&P, Labs, Medications, Previous Orders, Radiology Changes from previous H/P or p: No Changes Gastrointestinal: Nausea, Vomiting, Abdominal Pain, Other (Left flank pain) Musculoskeletal: other (Left flank pain) Objective Vitals Vital Signs Date Time Temp Pulse Resp B/P (MAP) Pulse Ox O2 Delivery O2 Flow Rate FiO2 02/13/25 09:00 97.9 76 16 164/97 (119) 93 97.9 02/13/25 08:10 Room Air* 0 21 Intake/Output Intake and Output 02/13/25 07:00 Intake Total 1575 ml Output Total 450 ml Balance 1125 ml Intake Oral 1275 ml IV Total 300 ml Output Urine Total 450 ml # Voids 6 General Appearance: Alert, Oriented X3, No acute distress Lungs: Clear to auscultation Cardiovascular: Regular rate Abdomen: Normal bowel sounds, Soft Medications Current Medications Medications Dose Ordered Sig/Nita Route Start Time Stop Time Status Last Admin Dose Admin Ondansetron HCl 4 mg Q4HP PRN IV 02/04/25 07:45 Enoxaparin Sodium 40 mg DAILY SC 02/04/25 10:00 02/13/25 09:50 40 MG Acetaminophen 650 mg Q6HP PRN PO 02/04/25 07:45 Nitroglycerin 0.4 mg Q5MINP PRN SL 02/04/25 07:45 Empaglifozin 10 mg QAM PO 02/05/25 07:00 02/13/25 05:47 10 MG Donepezil HCl 10 mg BID PO 02/04/25 10:00 02/13/25 09:51 10 MG Atorvastatin Calcium 40 mg HS PO 02/04/25 22:00 02/12/25 21:15 40 MG Hydralazine HCl 10 mg Q6HP PRN IV 02/04/25 08:00 02/07/25 05:04 10 MG Pantoprazole Sodium 40 mg BID@0600,1700 PO 02/07/25 17:00 02/13/25 05:47 40 MG Sucralfate 1 gm QID@0600,1130,1700,2200 PO 02/07/25 17:00 02/13/25 10:38 1 GM Metronidazole 100 ml @ 100 mls/hr Q8HR IV 02/10/25 14:00 02/13/25 05:47 100 MLS/HR Enteral Nutritional Formula 240 ml TIDWM PO 02/12/25 12:00 02/13/25 09:51 240 ML Laboratory Results Laboratory Tests 02/05/25 05:39 02/11/25 04:57 Urinalysis Test 02/04/25 04:38 Urine Color Light-yellow (Yellow) Urine Clarity Clear (Clear) Urine pH 6.0 (5.0-9.0) Urine Specific [place] 1.024 (1.001-1.035) Urine Protein Trace (Negative) H Urine Ketones Negative (Negative) Urine Blood Negative /uL (Negative) Urine Nitrite Negative (Negative) Urine Bilirubin Negative (Negative) Urine Urobilinogen Normal mg/dL (Negative) Urine Leukocyte Esterase Negative /uL (Negative) Urine RBC 1 /hpf (0 - 3) Urine Microscopic WBC 1 /HPF (0-3) Urine Squamous Epithelial Cells Few /hpf (<5) Urine Bacteria None seen /hpf (None Seen) Urine Glucose Normal mg/dL (Normal) Labs and/or images reviewed: Labs reviewed by me, Image(s) reviewed by me Assessment/Plan Assessment/Plan Acute Cholecystitis status post lap patricia by Dr. Desai on 02-10-25 Intractable abdominal and lt flank pain pain with nausea and vomiting, GI consult for Dr. 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 Golden Marte recommended follow up at higher level of care as an outpatient Mild gastritis and duodenitis by EGD by Dr. Golden Marte Hypertension CHF AFib History of right inguinal hernia surgery Visually impaired Enlarged prostate x9 years refused surgery in the past Physical therapy ordered Cleared for discharge by Dr. Desai Will DC to [facility] facility for two weeks of IV antibiotics and physical therapy Plan is acceptable to the patient Plan discussed with: Patient My Orders Orders - VAUGHN WILSON MD Procedure Category Date Status Time Covid19 Antigen [facility] LAB 02/13/25 Logged Communication Order ORDERS 02/13/25 Transmitted 11:05 Date of Service: Feb 13, 2025 Billing Provider: VAUGHN WILSON MD Common Visit Codes: [id number] INP/OBS CARE(HIGH) VAUGNH WILSON MD Feb 13, 2025 11:15
--- NOTE | 2025-02-13 11:21 | DVHDS2 ---
Discharge Summary Date of Admission February 04, 2025 at 07:31 Date of Discharge: Feb 13, 2025 Admitting Diagnosis Abdominal pain Wounds: Lap patricia Labs/Diagnostic Data: Laboratory Results Test 02/11/25 04:57 02/10/25 10:09 02/10/25 08:01 02/08/25 17:40 White Blood Count 10.1 10^3/uL (4.4-10.8) Red Blood Count 5.09 10^6/uL (4.5-5.90) Hemoglobin 13.9 g/dL (13.5-17.5) Hematocrit 41.1 % (41.0-53.0) Mean Corpuscular Volume 80.8 fL (80.0-100.0) Mean Corpuscular Hemoglobin 27.3 pg (28.0-32.0) Mean Corpuscular Hemoglobin Concent 33.8 g/dL (32.0-36.0) Red Cell Distribution Width 14.1 % (11.8-14.3) Platelet Count 142 10^3/uL (140-450) Mean Platelet Volume 9.5 fL (6.9-10.8) Neutrophils (%) (Auto) 82.5 % (37.0-80.0) Lymphocytes (%) (Auto) 6.9 % (10.0-50.0) Monocytes (%) (Auto) 10.5 % (0.0-12.0) Eosinophils (%) (Auto) 0.0 % (0.0-7.0) Basophils (%) (Auto) 0.1 % (0.0-2.0) Neutrophils # (Auto) 8.3 10 ^3/uL (1.6-8.6) Lymphocytes # (Auto) 0.7 10 ^3/uL (0.4-5.4) Monocytes # (Auto) 1.1 10 ^3/uL (0-1.3) Eosinophils # (Auto) 0 10 ^3/uL (0-0.8) Basophils # (Auto) 0 10 ^3/uL (0-0.2) Nucleated Red Blood Cells 0.1 % Total Bilirubin 0.7 mg/dL (0.2-1.0) POC Glucose 91 mg/dl (70-106) Prothrombin Time 11.9 sec (9.3-11.8) Prothrombin Time INR 1.14 (0.9-1.15) Activated Partial Thromboplast Time 29.7 SEC (24.5-34.5) B-Type Natriuretic Peptide 15.98 pg/mL (0-100) Test 02/06/25 15:00 02/05/25 05:39 02/04/25 07:25 02/04/25 06:02 Sodium Level 143 mmol/L (136-145) Potassium Level 3.7 mmol/L (3.5-5.1) Chloride Level 109 mmol/L (98-107) Carbon Dioxide Level 28 mmol/L (20-31) Anion Gap 6 (5-15) Blood Urea Nitrogen 8 mg/dL (9-23) Creatinine 1.05 mg/dL (0.700-1.30) Glomerular Filtration Rate Calc 75 mL/min (>90) BUN/Creatinine Ratio 7.6 (10.0-20.0) Serum Glucose 107 mg/dL (74-106) Calcium Level 9.5 mg/dL (8.7-10.4) Aspartate Amino Transferase (AST) 19 U/L (13-40) Alanine Aminotransferase (ALT) < 9 U/L (7-40) Alkaline Phosphatase 55 U/L (46-116) Total Protein 6.5 g/dL (5.7-8.2) Albumin 4.0 g/dL (3.2-4.8) Hepatitis B Surface Antigen Negative (Negative) Troponin I High Sensitivity 15 ng/L (</=54) Test 02/04/25 04:38 02/04/25 03:09 Urine Color Light-yellow (Yellow) Urine Clarity Clear (Clear) Urine pH 6.0 (5.0-9.0) Urine Specific Raymond 1.024 (1.001-1.035) Urine Protein Trace (Negative) Urine Ketones Negative (Negative) Urine Blood Negative /uL (Negative) Urine Nitrite Negative (Negative) Urine Bilirubin Negative (Negative) Urine Urobilinogen Normal mg/dL (Negative) Urine Leukocyte Esterase Negative /uL (Negative) Urine RBC 1 /hpf (0 - 3) Urine Microscopic WBC 1 /HPF (0-3) Urine Squamous Epithelial Cells Few /hpf (<5) Urine Bacteria None seen /hpf (None Seen) Urine Glucose Normal mg/dL (Normal) Hemoglobin A1c 5.6 % A1C (<5.7) Amylase Level 79 U/L (30-118) Lipase 34 U/L (12-53) Other Laboratory Tests 02/11/25 04:57 02/05/25 05:39 Brief Hx & Hospital Course: 74-year-old male with a history of diabetes hypertension hiatal hernia CHF AFib chronic right inguinal hernia and enlarged prostate nine years refused surgery in the past came in complaining of abdominal pain. The pain was mostly in the left flank area with the nausea and vomiting GI consult by Dr. Barrett. 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 GI Dr. Golden Marte recommended follow up at a higher level of care regarding the pancreatic cyst found to have mild gastritis and duodenitis by EGD by Dr. Golden Marte. Patient underwent laparoscopic cholecystectomy for acute cholecystitis by surgeon Dr. Desai on 02/10/2025. Postop course uneventful treated with IV Levaquin and IV Flagyl which will be continued for two more weeks. Patient received physical therapy. Cleared for discharge by surgeon. [facility] physical therapy and rehabilitation. discussed with the patient and the plan is acceptable to the patient. Consults/Reason for consult Surgeon Dr. Desai GI Operations or Procedures Lap patricia Condition at Discharge: Fair Final Diagnosis/Problems List Acute Cholecystitis status post lap patricia by Dr. Desai on 02-10-25 Intractable abdominal and lt flank pain pain with nausea and vomiting, GI consult for Dr. 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 Golden Marte recommended follow up at higher level of care as an outpatient Mild gastritis and duodenitis by EGD by Dr. Golden Marte Hypertension CHF AFib History of right inguinal hernia surgery Visually impaired Enlarged prostate x9 years refused surgery in the past Discharge Disposition: Intermediate Facility Discharge Instruct/Medications Diet: Regular Activity: Light activity Follow Up/Referral: Follow up with the senior living doctor Medications: Levaquin 500 mg IV daily for two weeks Flagyl 500 mg IV q.8 hours for two weeks 35 (Time taken for discharge summary 35 minutes) Discharge Statement: "Patient was advised to return to the ER or call 911 if any headaches, dizziness, shortness of breath, chest pain, abdominal pain, bleeding, fevers, or worsening of medical condition. Patient was counseled about treatment plan, medications, possible side effects, patientverbalized understanding. All questions were answered to the best of my ability. This discharge took greater then 30 minutes in planning, reviewing documentation, counseling the patient, and discussing with other team members." ASSESSMENT ASSESSMENT Hospital Course Improved Assessment Acute Cholecystitis status post lap patricia by Dr. Desai on 02-10-25 Intractable abdominal and lt flank pain pain with nausea and vomiting, GI consult for Dr. 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 Golden Marte recommended follow up at higher level of care as an outpatient Mild gastritis and duodenitis by EGD by Dr. Golden Marte Hypertension CHF AFib History of right inguinal hernia surgery Visually impaired Enlarged prostate x9 years refused surgery in the past Date of Service: Feb 13, 2025 Billing Provider: VAUGHN WILSON MD Common Visit Codes: 12031-LWM/OBS DISCH DAY >30min VAUGHN WILSON MD Feb 13, 2025 11:21
[2025-02-13] MEDS: levoFLOXacin 500MG 100 ML IV ONE (14:13)
[2025-02-13 16:09] LABS: COVID19 ANTIGEN SOFIA FIA NEGATIVE (NEGATIVE)
--- NOTE | 2025-02-13 18:17 | DVHPN2 ---
Progress Note - Dictate Date Seen: Feb 13, 2025 Medical Necessity Reason Pt with a Central, PICC or Fol: No Subjective No new complaints Patient is awake alert Patient is tolerating a diet Needs help with ambulation vital signs Vital Sign Date Time Temp Pulse Resp B/P (MAP) Pulse Ox O2 Delivery O2 Flow Rate FiO2 02/13/25 16:57 97.9 91 18 177/97 (123) 95 97.9 02/13/25 08:10 Room Air* 0 21 Total Intake and Output 02/12/25 02/12/25 02/13/25 15:00 23:00 07:00 Intake Total 100 ml 700 ml 775 ml Output Total 450 ml Balance 100 ml 700 ml 325 ml medications Current Medications Medications Dose Ordered Sig/Nita Route Start Time Stop Time Status Last Admin Dose Admin Ondansetron HCl 4 mg Q4HP PRN IV 02/04/25 07:45 Enoxaparin Sodium 40 mg DAILY SC 02/04/25 10:00 02/13/25 09:50 40 MG Acetaminophen 650 mg Q6HP PRN PO 02/04/25 07:45 Nitroglycerin 0.4 mg Q5MINP PRN SL 02/04/25 07:45 Empaglifozin 10 mg QAM PO 02/05/25 07:00 02/13/25 05:47 10 MG Donepezil HCl 10 mg BID PO 02/04/25 10:00 02/13/25 09:51 10 MG Atorvastatin Calcium 40 mg HS PO 02/04/25 22:00 02/12/25 21:15 40 MG Hydralazine HCl 10 mg Q6HP PRN IV 02/04/25 08:00 02/13/25 16:22 10 MG Pantoprazole Sodium 40 mg BID@0600,1700 PO 02/07/25 17:00 02/13/25 16:26 40 MG Sucralfate 1 gm QID@0600,1130,1700,2200 PO 02/07/25 17:00 02/13/25 16:26 1 GM Metronidazole 100 ml @ 100 mls/hr Q8HR IV 02/10/25 14:00 02/13/25 15:22 100 MLS/HR Enteral Nutritional Formula 240 ml TIDWM PO 02/12/25 12:00 02/13/25 12:00 240 ML objective General Appearance: Alert, Oriented X3, No acute distress Lungs: Clear to auscultation Cardiovascular: Regular rate Abdomen: Normal bowel sounds, Soft; dressing dry Extremities without clubbing cyanosis or edema laboratory and microbiology Laboratory Tests 02/11/25 04:57 02/05/25 05:39 Test 02/05/25 05:39 Range/Units Serum Glucose 107 H 74-106 mg/dL Problems(with codes): (1) Cholelithiasis with cholecystitis (2) Non-specific colitis (3) Cystitis (4) Abdominal pain (5) Cirrhosis (6) Pancreatic cyst (7) Cholecystitis (8) Ascites (9) Intractable abdominal pain Prognosis Plan Advance diet as tolerated Continue physical therapy Pain control IV fluids IV antibiotics Discharge planning is in progress to SNF Maintain on PPI Dietary Evaluation Review Comments: 1) Advance diet as medically feasible 2) Continue current POC Expected Outcomes/Goals: To meet >75% estimated needs Fu 2-3 days Plan discussed with: Patient, Other (Nurse) CHRISTIAN KEITH MD Feb 13, 2025 18:17
[2025-02-14] VITALS (7 sets, daily range): BP systolic 131–164; BP diastolic 76–99; PULSE 75–98; RESP 17–18; TEMP 97.3–98; O2SAT 94–97
[2025-02-14] MEDS ORDERED: levoFLOXacin 500MG 100 ML IV SCH (10:00)
--- NOTE | 2025-02-14 10:02 | DVHPN2 ---
Reviewed: Care Plan, H&P, Labs, Medications, Previous Orders, Radiology Changes from previous H/P or p: No Changes Gastrointestinal: Nausea, Vomiting, Abdominal Pain, Other (Left flank pain) Musculoskeletal: other (Left flank pain) Objective Vitals Vital Signs Date Time Temp Pulse Resp B/P (MAP) Pulse Ox O2 Delivery O2 Flow Rate FiO2 02/14/25 09:30 97.3 98 18 164/99 (120) 95 97.3 02/14/25 08:00 Room Air* 0 21 Intake/Output Intake and Output 02/14/25 07:00 Intake Total 1570 ml Output Total 1500 ml Balance 70 ml Intake Oral 1170 ml IV Total 400 ml Output Urine Total 1500 ml # Voids 9 # Bowel Movements 2 General Appearance: Alert, Oriented X3, No acute distress Lungs: Clear to auscultation Cardiovascular: Regular rate Abdomen: Normal bowel sounds, Soft Medications Current Medications Medications Dose Ordered Sig/Nita Route Start Time Stop Time Status Last Admin Dose Admin Ondansetron HCl 4 mg Q4HP PRN IV 02/04/25 07:45 Enoxaparin Sodium 40 mg DAILY SC 02/04/25 10:00 02/14/25 09:49 40 MG Acetaminophen 650 mg Q6HP PRN PO 02/04/25 07:45 Nitroglycerin 0.4 mg Q5MINP PRN SL 02/04/25 07:45 Empaglifozin 10 mg QAM PO 02/05/25 07:00 02/14/25 05:26 10 MG Donepezil HCl 10 mg BID PO 02/04/25 10:00 02/14/25 09:50 10 MG Atorvastatin Calcium 40 mg HS PO 02/04/25 22:00 02/13/25 21:59 40 MG Hydralazine HCl 10 mg Q6HP PRN IV 02/04/25 08:00 02/13/25 16:22 10 MG Pantoprazole Sodium 40 mg BID@0600,1700 PO 02/07/25 17:00 02/14/25 05:26 40 MG Sucralfate 1 gm QID@0600,1130,1700,2200 PO 02/07/25 17:00 02/14/25 05:26 1 GM Metronidazole 100 ml @ 100 mls/hr Q8HR IV 02/10/25 14:00 02/14/25 05:26 100 MLS/HR Enteral Nutritional Formula 240 ml TIDWM PO 02/12/25 12:00 02/14/25 08:00 240 ML Laboratory Results Laboratory Tests 02/05/25 05:39 02/11/25 04:57 Urinalysis Test 02/04/25 04:38 Urine Color Light-yellow (Yellow) Urine Clarity Clear (Clear) Urine pH 6.0 (5.0-9.0) Urine Specific [place]rell 1.024 (1.001-1.035) Urine Protein Trace (Negative) H Urine Ketones Negative (Negative) Urine Blood Negative /uL (Negative) Urine Nitrite Negative (Negative) Urine Bilirubin Negative (Negative) Urine Urobilinogen Normal mg/dL (Negative) Urine Leukocyte Esterase Negative /uL (Negative) Urine RBC 1 /hpf (0 - 3) Urine Microscopic WBC 1 /HPF (0-3) Urine Squamous Epithelial Cells Few /hpf (<5) Urine Bacteria None seen /hpf (None Seen) Urine Glucose Normal mg/dL (Normal) Labs and/or images reviewed: Labs reviewed by me, Image(s) reviewed by me Assessment/Plan Assessment/Plan Acute Cholecystitis status post lap patricia by Dr. Desai on 02-10-25 Intractable abdominal and lt flank pain pain with nausea and vomiting, GI consult for Dr. 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 Golden Marte recommended follow up at higher level of care as an outpatient Mild gastritis and duodenitis by EGD by Dr. Golden Marte Hypertension CHF AFib History of right inguinal hernia surgery Visually impaired Enlarged prostate x9 years refused surgery in the past Physical therapy ordered Cleared for discharge by Dr. Desai Will DC to residential facility for two weeks of IV antibiotics and physical therapy Plan is acceptable to the patient Awaiting bed in the residential facility Plan discussed with: Patient My Orders Orders - VAUGHN WILSON MD Procedure Category Date Status Time Communication Order ORDERS 02/13/25 Transmitted 11:05 Discharge DISCHARGE 02/13/25 Transmitted 11:15 * Registered Nurse Midwife CONS 02/13/25 Transmitted Consult Communication Order ORDERS 02/13/25 Transmitted 11:26 Pharmacy TESS 02/13/25 In Process Clarification: 11:36 Date of Service: Feb 14, 2025 Billing Provider: VAUGHN WILSON MD Common Visit Codes: [id number] INP/OBS CARE(HIGH) VAUGHN WILSON MD Feb 14, 2025 10:02
--- NOTE | 2025-02-14 18:51 | DVHPN2 ---
Progress Note - Dictate Date Seen: Feb 14, 2025 Medical Necessity Reason Pt with a Central, PICC or Fol: No Subjective No new complaints Patient is awake alert Patient is tolerating a diet CA 19-9 noted to be mildly elevated to 115 vital signs Vital Sign Date Time Temp Pulse Resp B/P (MAP) Pulse Ox O2 Delivery O2 Flow Rate FiO2 02/14/25 16:30 97.8 84 18 163/87 (112) 95 97.8 02/14/25 08:00 Room Air* 0 21 Total Intake and Output 02/13/25 02/13/25 02/14/25 15:00 23:00 07:00 Intake Total 1000 ml 570 ml Output Total 1500 ml Balance 1000 ml -930 ml medications Current Medications Medications Dose Ordered Sig/Nita Route Start Time Stop Time Status Last Admin Dose Admin Ondansetron HCl 4 mg Q4HP PRN IV 02/04/25 07:45 Enoxaparin Sodium 40 mg DAILY SC 02/04/25 10:00 02/14/25 09:49 40 MG Acetaminophen 650 mg Q6HP PRN PO 02/04/25 07:45 Nitroglycerin 0.4 mg Q5MINP PRN SL 02/04/25 07:45 Empaglifozin 10 mg QAM PO 02/05/25 07:00 02/14/25 05:26 10 MG Donepezil HCl 10 mg BID PO 02/04/25 10:00 02/14/25 09:50 10 MG Atorvastatin Calcium 40 mg HS PO 02/04/25 22:00 02/13/25 21:59 40 MG Hydralazine HCl 10 mg Q6HP PRN IV 02/04/25 08:00 02/13/25 16:22 10 MG Pantoprazole Sodium 40 mg BID@0600,1700 PO 02/07/25 17:00 02/14/25 05:26 40 MG Sucralfate 1 gm QID@0600,1130,1700,2200 PO 02/07/25 17:00 02/14/25 11:36 1 GM Metronidazole 100 ml @ 100 mls/hr Q8HR IV 02/10/25 14:00 02/14/25 14:06 100 MLS/HR Enteral Nutritional Formula 240 ml TIDWM PO 02/12/25 12:00 02/14/25 11:36 240 ML objective General Appearance: Alert, Oriented X3, No acute distress Lungs: Clear to auscultation Cardiovascular: Regular rate Abdomen: Normal bowel sounds, Soft; dressing dry Extremities without clubbing cyanosis or edema laboratory and microbiology Laboratory Tests 02/11/25 04:57 02/05/25 05:39 Test 02/05/25 05:39 Range/Units Serum Glucose 107 H 74-106 mg/dL Problems(with codes): (1) Cholelithiasis with cholecystitis (2) Non-specific colitis (3) Cystitis (4) Abdominal pain (5) Pancreatic cyst (6) Cirrhosis (7) Cholecystitis (8) Ascites Prognosis Plan Discharge planning is in progress to [facility] Patient should be possibly referred to higher level of care as an outpatient for EUS possible FNA to further evaluate pancreatic cyst as his CA 19-9 Outpatient follow up with me in 4-6 weeks or as needed Dietary Evaluation Review Comments: 1) Advance diet as medically feasible 2) Continue current POC Expected Outcomes/Goals: To meet >75% estimated needs Fu 2-3 days Plan discussed with: Patient CHRISTIAN KEITH MD Feb 14, 2025 18:51
== END 2025-02-14 19:18 | DRG 418 ==
LOC: ER 02:50 → EDSEX 02:50 → EDBD 02:50 → OVERFLOW 07:31 → WEST WING 14:35 → TELE-WESTW 02-13 07:51
PROVIDERS: ADMIT Family Medicine; ATTEND Family Medicine
PROC: 0DB68ZX Excision of Stomach, Via Natural or Artificial Opening Endoscopic, Diagnostic (ICD-10-PCS; 2025-02-07)
PROC: 0DB58ZX Excision of Esophagus, Via Natural or Artificial Opening Endoscopic, Diagnostic (ICD-10-PCS; 2025-02-07)
PROC: 0DB48ZX Excision of Esophagogastric Junction, Via Natural or Artificial Opening Endoscopic, Diagnostic (ICD-10-PCS; 2025-02-07)
PROC: 0DB98ZX Excision of Duodenum, Via Natural or Artificial Opening Endoscopic, Diagnostic (ICD-10-PCS; principal; 2025-02-07 16:15)
PROC: 0FT44ZZ Resection of Gallbladder, Percutaneous Endoscopic Approach (ICD-10-PCS; 2025-02-10)
DX: K80.00 Calculus of gallbladder with acute cholecystitis without obstruction (principal); I42.9 Cardiomyopathy, unspecified; K86.2 Cyst of pancreas; I50.22 Chronic systolic (congestive) heart failure; I48.20 Chronic atrial fibrillation, unspecified; I16.0 Hypertensive urgency; I48.91 Unspecified atrial fibrillation; K44.9 Diaphragmatic hernia without obstruction or gangrene; E11.9 Type 2 diabetes mellitus without complications; F03.90 Unspecified dementia, unspecified severity, without behavioral disturbance, psychotic disturbance, mood disturbance, and anxiety; K29.70 Gastritis, unspecified, without bleeding; K86.9 Disease of pancreas, unspecified; N40.0 Benign prostatic hyperplasia without lower urinary tract symptoms; K26.9 Duodenal ulcer, unspecified as acute or chronic, without hemorrhage or perforation; F17.210 Nicotine dependence, cigarettes, uncomplicated; F12.20 Cannabis dependence, uncomplicated; K22.70 Barrett's esophagus without dysplasia; Z20.822 Contact with and (suspected) exposure to COVID-19; K29.80 Duodenitis without bleeding; E78.5 Hyperlipidemia, unspecified; I11.0 Hypertensive heart disease with heart failure; Z88.0 Allergy status to penicillin; Z79.01 Long term (current) use of anticoagulants; Z79.899 Other long term (current) drug therapy; Z79.82 Long term (current) use of aspirin; Z82.49 Family history of ischemic heart disease and other diseases of the circulatory system; Z81.8 Family history of other mental and behavioral disorders; Z81.1 Family history of alcohol abuse and dependence
CPT/HCPCS: 36415; 43239; 71045; 71046; 74177; 74181; 76775; 78226; 80053; 81001; 82150; 82247; 82962; 83036; 83690; 83880; 84484; 85025; 85610; 85730; 86301; 86850; 86900; 86901; 87340; 87426; 93005; 96361; 96374; 96375; 97163; 99291; G0378; J0131; J1100; J1885; J1956; J2003; J2250; J2405; J2704; J3490

== ENCOUNTER 2025-06-15 20:29 | Emergency (ER) | payer MEDICARE, MEDICAID ==
[~2025-06-15] VITALS: Ht 182.9 cm; Wt 105.0 kg
[~2025-06-15 20:29] MED LIST changes: +FLUT1SPR21
[2025-06-15 21:38] LABS: Hemoglobin 15.4 g/dL (13.5-17.5); Nucleated Red Blood Cells % 0.1 %
[2025-06-15 21:39] LABS: Hematocrit 45.2 % (41.0-53.0); Mean Corpuscular Hemoglobin 26.9 pg (28.0-32.0); Mean Corpuscular Volume 79.2 fL (80.0-100.0)
[2025-06-15 21:45] LABS: Chloride 106 mmol/L (98-107); Potassium 4.1 mmol/L (3.5-5.1); Sodium 141 mmol/L (136-145)
[2025-06-15 21:46] LABS: Anion Gap 12 (5-15); Calcium 9.8 mg/dL (8.7-10.4); Carbon Dioxide 23 mmol/L (20-31)
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
[2025-06-15 21:51] LABS: BUN/Creatinine Ratio 6.9 (10.0-20.0)
[2025-06-15 21:52] LABS: Blood Urea Nitrogen 7 mg/dL (9-23); Glucose 114 mg/dL (74-106)
[2025-06-16 03:29] LABS: Amphetamine Screen, Urine Neg (NEGATIVE); Barbiturate Scree,Urine Neg (NEGATIVE); Benzodiazephine Screen, Urine Neg (NEGATIVE); Cannabinoid Screen, Urine Neg (NEGATIVE); Cocaine Screen, Urine Neg (NEGATIVE); Phencyclidine Screen, Urine Neg (NEGATIVE)
[2025-06-16 03:31] LABS: Urine Protein, UAD TRACE (Negative)
[2025-06-16 03:42] LABS: Opiate Scree,Urine Neg (NEGATIVE)
[2025-06-16 08:33] VITALS: PULSE 65; RESP 17; O2SAT 98
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
[2025-06-17] MEDS: LACTATED RINGER'S 1,000 ML IV ONE (21:00)
[2025-06-18] MEDS: LORazepam 2MG/ML-1ML VIAL IM ONE (03:00)
[2025-06-18] MEDS: HALOPERIDOL LACTATE 5 MG/ML INJ VIAL IM ONE (03:44)
[2025-06-18] MEDS: HALOPERIDOL LACTATE 5 MG/ML INJ VIAL ONE (03:44)
[2025-06-18 07:53] VITALS: PULSE 61; RESP 16; O2SAT 96
--- NOTE | 2025-06-18 18:53 | DVHINCON2 ---
Date of Service if different f: Jun 18, 2025 Consultation ([facility]) Progress: Somewhat better Labs Laboratory Tests Test 06/15/25 21:18 06/16/25 02:30 White Blood Count 6.3 10^3/uL (4.4-10.8) Red Blood Count 5.70 10^6/uL (4.5-5.90) Hemoglobin 15.4 g/dL (13.5-17.5) Hematocrit 45.2 % (41.0-53.0) Mean Corpuscular Volume 79.2 fL (80.0-100.0) Mean Corpuscular Hemoglobin 26.9 pg (28.0-32.0) Mean Corpuscular Hemoglobin Concent 34.0 g/dL (32.0-36.0) Red Cell Distribution Width 15.7 % (11.8-14.3) Platelet Count 169 10^3/uL (140-450) Mean Platelet Volume 9.3 fL (6.9-10.8) Neutrophils (%) (Auto) 69.5 % (37.0-80.0) Lymphocytes (%) (Auto) 18.6 % (10.0-50.0) Monocytes (%) (Auto) 9.7 % (0.0-12.0) Eosinophils (%) (Auto) 1.1 % (0.0-7.0) Basophils (%) (Auto) 1.1 % (0.0-2.0) Neutrophils # (Auto) 4.4 10 ^3/uL (1.6-8.6) Lymphocytes # (Auto) 1.2 10 ^3/uL (0.4-5.4) Monocytes # (Auto) 0.6 10 ^3/uL (0-1.3) Eosinophils # (Auto) 0.1 10 ^3/uL (0-0.8) Basophils # (Auto) 0.1 10 ^3/uL (0-0.2) Nucleated Red Blood Cells 0.1 % Sodium Level 141 mmol/L (136-145) Potassium Level 4.1 mmol/L (3.5-5.1) Chloride Level 106 mmol/L (98-107) Carbon Dioxide Level 23 mmol/L (20-31) Anion Gap 12 (5-15) Blood Urea Nitrogen 7 mg/dL (9-23) Creatinine 1.02 mg/dL (0.700-1.30) Glomerular Filtration Rate Calc 78 mL/min (>90) BUN/Creatinine Ratio 6.9 (10.0-20.0) Serum Glucose 114 mg/dL (74-106) Calcium Level 9.8 mg/dL (8.7-10.4) Plasma/Serum Blood Alcohol < 3.0 mg/dL (<10) Urine Color Yellow (Yellow) Urine Clarity Turbid (Clear) Urine pH 5.0 (5.0-9.0) Urine Specific [place] 1.027 (1.001-1.035) Urine Protein Trace (Negative) Urine Ketones 1+ (Negative) Urine Blood 1+ /uL (Negative) Urine Nitrite Negative (Negative) Urine Bilirubin Negative (Negative) Urine Urobilinogen Normal mg/dL (Negative) Urine Leukocyte Esterase Negative /uL (Negative) Urine RBC 2 /hpf (0 - 3) Urine Microscopic WBC 2 /HPF (0-3) Urine Squamous Epithelial Cells None seen /hpf (<5) Urine Bacteria None seen /hpf (None Seen) Urine Mucus Few (None Seen) Urine Glucose Normal mg/dL (Normal) Urine Opiates Screen Neg (NEGATIVE) Urine Fentanyl Screen Neg (NEGATIVE) Urine Barbiturates Screen Neg (NEGATIVE) Urine Phencyclidine Screen Neg (NEGATIVE) Urine Amphetamines Screen Neg (NEGATIVE) Urine Benzodiazepines Screen Neg (NEGATIVE) Urine Cocaine Screen Neg (NEGATIVE) Urine Cannabinoids Screen Neg (NEGATIVE) Appetite: Good Appearance: Stated age Psychomotor activity: WNL Behavioral: Cooperative Eye contact: Appropriate Speech: WNL Affect: Mood Congruent Mood: Euthymic Thought processes: Linear/Goal-directed Thought content: WNL Suicidal ideations: Absent Homicidal ideations: Absent Orientation: Person, Place, Time, Situation Memory intact: Recent Intellect: Average Abstractability: WNL Concentration: Adequate Attention: Adequate Judgement: WNL Insight: Good Vitals Vital Signs Date Time Temp Pulse Resp B/P (MAP) Pulse Ox O2 Delivery O2 Flow Rate FiO2 06/18/25 12:30 98.2 66 16 118/75 (89) 98 98.2 06/18/25 12:30 Room Air* 0 21 Treatment plan discussed: With staff Medication adjusted: Yes Labs ordered: No Psychotherapy provided: Yes Type: Voluntary Diagnosis: Adjustment disorder with depressed mood. Plan : When the pt arrived to the ED he was feeling sad, angry and desperate. He has since gotten in touch with his sister who tells him that there are resources available for him to get housed and this has made the pt feel better, less sad and more hopeful. Pt is now consistently denying any SI and also HI or AVH. Pt is quite reasonable and despite no longer feeling any sadness, is willing to start lexapro 10 mg because the challenges of relocating may cause him to start to feel sad again and this would guard against the intense feelings of sadness. At this point the pt no longer meets criteria for a 5150 or inpatient psychiatric stabilization and can follow-up in the community safely. History of Present Illness Reason for Re-Consult : Pt is no longer endorsing SI. Interval HPI : The pt was assessed by Dr. Landa on 06/16/25 and at the time pt was very unhappy about how his daughter was treating him. Pt says that his mood is a lot better now. Pt is concerned with where he will go from here and how to get there. Pt talked to his sister and she has arranged a place for the pt to go. Pt does not feel as cast aside as he was when he came here. Pt says his mood is better, he is more hopeful. He now no longer feels suicidal. Denies HI or AVH. Pt is interested in starting an antidepressant to help cope with the upcoming changes and challenges related to relocating to new housing etc. Assessment/Diagnosis/Plan Reviewed: Consults, Care Plan, Labs, Medications DIAMOND CHATTERJEE MD Jun 18, 2025 18:53
[2025-06-18] MEDS ORDERED: ESCI10TA PO (19:15)
[2025-06-18 20:14] VITALS: PULSE 65
[2025-06-19 08:17] VITALS: PULSE 67; RESP 16; O2SAT 95
[2025-06-19 19:15] VITALS: BP 169/88; PULSE 70; RESP 12; TEMP 98.6; O2SAT 96
[2025-06-19 20:32] VITALS: PULSE 80
== END 2025-06-20 08:16 | disposition home or self-care (01) ==
LOC: ER 20:29
DX: R45.851 Suicidal ideations (principal); R45.850 Homicidal ideations; F03.918 Unspecified dementia, unspecified severity, with other behavioral disturbance; R62.7 Adult failure to thrive; I16.0 Hypertensive urgency; I11.0 Hypertensive heart disease with heart failure; I50.9 Heart failure, unspecified; E11.9 Type 2 diabetes mellitus without complications; I48.91 Unspecified atrial fibrillation; F32.A Depression, unspecified; E66.01 Morbid (severe) obesity due to excess calories; Z98.890 Other specified postprocedural states; Z65.8 Other specified problems related to psychosocial circumstances; Z63.8 Other specified problems related to primary support group; Z60.8 Other problems related to social environment; Z91.51 Personal history of suicidal behavior; Z68.31 Body mass index [BMI] 31.0-31.9, adult
CPT/HCPCS: 36415; 80048; 80307; 80320; 81001; 85025; 96372; 99285; J1630; J2060